=== PATIENT | female | born 1955 | race Caucasian/White ===

== ENCOUNTER 2024-03-21 20:24 | Inpatient (IN) ==
--- NOTE | 2024-03-21 21:23 | Emergency Department Note ---
Impression & Plan Sepsis, Renal colic, Hydronephrosis, UTI (urinary tract infection) ED Provider Note NAME: KRIS GARCIA AGE: 68 SEX: F : 1955 ARRIVES VIA: Walk-In INFORMANT: Patient ED PROVIDER(S): Hi Lee DO CHIEF COMPLAINT: abdominal pain HPI: Patient is a 68-year-old female who presents to the ER for abdominal pain associated with diarrhea. She has had hematuria for the past several months. She notes she is following with urology. Denies any headache or change in vision. No chest pain or shortness of breath. She admits to belly pain diffuse throughout her lower abdomen which started about 7 days ago associate with some diarrhea. She notes she has not urinated in the past 2 days and that is why she came in. She is not on dialysis. No other exacerbating or remitting factors. provides additional history was present at bedside and notes she has had no previous belly surgeries. ADDITIONAL HISTORY OBTAINED: Per HPI Chronic Medical/Social Conditions Affecting Care: Per HPI PAST MEDICAL HISTORY:See Below PAST SURGICAL HISTORY:See Below FAMILY HISTORY:See Below SOCIAL HISTORY:See Below HOME MEDICATIONS:See Below ALLERGIES:See Below VITALS:See Below PHYSICAL EXAMINATION: GENERAL: Sitting up in bed, alert, well appearing, well nourished, no distress, non-toxic EYE EXAM: normal conjunctiva. OROPHARYNX: mucous membranes are moist NECK: supple, no nuchal rigidity, no adenopathy, non-tender LUNGS: Clear to auscultation. Normal chest wall mechanics HEART: Tachycardic, S1 normal and S2 normal ABDOMEN: abdomen soft, diffusely tender, normo-active bowel sounds, no masses, no rebound or guarding. UPPER EXTREMITIES: upper extremities are grossly normal. LOWER EXTREMITIES: No pitting edema. NEURO EXAM: Normal sensorium, cranial nerves II-XII grossly intact, normal speech, no gross weakness of arms, no gross weakness of legs. MEDICAL DECISION MAKING: Patient is a 68-year-old female who presents ER for 4 abdominal pain associate with diarrhea and weakness. IV was established and blood work was obtained. Labs show a leukocytosis of 11.8 thousand. Anemia at 7.4 with no previous hemoglobins to compare to. BMP with mild hypokalemia 3.1. Creatinine was elevated at 1.8. External records were reviewed from [facility] 3 months ago which showed a creatinine at 1.03 on 12/11/2023 at 3:49 PM. LFTs and bilirubin were unremarkable. Lipase was normal. Pro-Pravin was elevated at 6.6. UA consistent with a UTI. Patient was given 2 L of IV fluids in combination with IV Rocephin. She is tachycardic with unknown source of infection. CT per my preliminary interpretation showed a stone in the left proximal ureter. I do feel this is infected and consequently contacted urology been to evaluate the patient at bedside. Spoke with the hospitalist Dr. Dubose for further evaluation management treatment. Please see their notes for further disposition. Consults/Care Managements Discussions: Per [facility] Triage Nursing notes reviewed. Limited review of prior medical records performed Vital Signs: reviewed and remarkable for tachy Differential diagnosis: Differential diagnoses includes but is not limited to gastritis, peptic ulcer disease, GERD, gallbladder disease, pancreatitis, small bowel obstruction, appendicitis, diverticulitis, hernia, urinary tract infection, torsion, perforation, trauma, infectious. ER treatment provided: See below Diagnostics interpreted by me include EKG and cardiac monitoring as listed below: -Cardiac Monitoring: An order was placed for continuous cardiac monitoring. The monitor shows a rate of 110 with sinus rhythm. -ECG: none -Laboratory studies:Interpreted by me as stated above in MDM and shown below. Imaging studies: Xrays: As interpreted by me: Portable AP upright 1 view of the chest shows no focal infiltrate CTs show: CT abdomen pelvis per my preliminary interpretation showed a proximal left ureteral stone Procedures:none Critical Care: I have personally spent 35 minutes of critical care time in the direct management of this patient. This includes bedside care, interpretation of diagnostic studies, and testing, discussion with consultants, patient, and family members, and other required patient management activities. This 35 minutes is in excess of all separately billable procedures. Past Med/Surg History Problem List (Updated 03/21/24 @ 23:35 by Hi Lee DO) UTI (urinary tract infection) (Acute) Hydronephrosis (Acute) Renal colic (Acute) Sepsis (Acute) Social History Smoking Status: Never smoker Preferred Language: Bulgarian Feels Safe at Home: Yes Allergies Allergies Allergy/AdvReac Type Severity Reaction Status Date / Time No Known Allergies Allergy Unverified 03/21/24 23:33 Home Meds Home Medications Medication Instructions Recorded Confirmed amlodipine 5 mg tablet 10 mg PO QAM 03/21/24 03/21/24 aripiprazole 20 mg tablet 20 mg PO HS 03/21/24 03/21/24 atenolol 25 mg tablet 25 mg PO BID 03/21/24 03/21/24 atorvastatin 80 mg tablet 80 mg PO QAM 03/21/24 03/21/24 cyclobenzaprine 5 mg tablet 5 mg PO HS PRN Muscle Spasm 03/21/24 03/21/24 ezetimibe 10 mg tablet 10 mg PO HS 03/21/24 03/21/24 fluticasone fur. 200 mcg-umeclid 1 ea inhalation QAM 03/21/24 03/21/24 62.5 mcg-vilant 25 mcg inhalat.powder (Trelegy Ellipta) furosemide 20 mg tablet 20 mg PO DAILY PRN swelling 03/21/24 03/21/24 furosemide 40 mg tablet 40 mg PO QAM 03/21/24 03/21/24 hydralazine 25 mg tablet 25 mg PO AMHS 03/21/24 03/21/24 hydrocodone 10 mg-acetaminophen 1 tab PO Q12 PRN Pain 03/21/24 03/21/24 325 mg tablet lamotrigine 25 mg tablet 50 mg PO QAM 03/21/24 03/21/24 lisinopril 20 mg tablet 20 mg PO BID 03/21/24 03/21/24 meloxicam 15 mg tablet 15 mg PO QAM 03/21/24 03/21/24 metformin 500 mg tablet,extended 1,000 mg PO BID 03/21/24 03/21/24 release 24 hr methenamine hippurate 1 gram tablet 1 g PO AMHS 03/21/24 03/21/24 ondansetron HCl 4 mg tablet 4 mg PO Q8 PRN Nausea 03/21/24 03/21/24 prazosin 2 mg capsule 2 mg PO HS 03/21/24 03/21/24 sertraline 100 mg tablet 100 mg PO BID 03/21/24 03/21/24 topiramate 50 mg tablet 50 mg PO AMHS 03/21/24 03/21/24 trazodone 150 mg tablet 300 mg PO HS 03/21/24 03/21/24 Results & Data (ED) Vital Signs Vital Signs - 24 hr 03/21/24 20:41 03/21/24 21:38 03/21/24 21:47 Temperature 36 C L Temperature Source Temporal Artery Scan Pulse Rate 118 H 119 H 110 H Pulse Rate [Apical] Respiratory Rate 16 20 Blood Pressure 119/74 Blood Pressure [Left Arm] Blood Pressure Mean 89 Blood Pressure Mean [Left Arm] Pulse Oximetry 95 95 Oxygen Delivery Method Room Air Room Air Oxygen Flow Rate Sepsis Recent Fever Within 48 Hours No Sepsis New/Unexplained Change in Mental Status N/A Sepsis Action Taken by Nursing No Action Required 03/21/24 22:47 Temperature Temperature Source Pulse Rate Pulse Rate [Apical] 116 H Respiratory Rate 20 Blood Pressure Blood Pressure [Left Arm] 126/97 Blood Pressure Mean Blood Pressure Mean [Left Arm] 106 Pulse Oximetry 98 Oxygen Delivery Method Nasal Cannula Oxymask Oxygen Flow Rate 2 Sepsis Recent Fever Within 48 Hours Sepsis New/Unexplained Change in Mental Status Sepsis Action Taken by Nursing Laboratory Data 03/21/24 21:27 03/21/24 21:27 Lab Results 03/21/24 03/21/24 03/21/24 Range/Units 21:27 21:33 21:45 WBC 11.89 H (4.8-10.8) K/ul RBC 2.87 L (4.20-5.40) M/uL Hgb 7.4 L (12.0-16.0) g/dl POC Hgb 7.1 L (12.0-16.0) g/dl Hct 24.3 L (37.0-47.0) % POC Hct 21 L (37-47) % MCV 84.7 (80.0-100.0) fL MCH 25.8 (25.0-34.0) pg MCHC 30.5 L (32.0-36.0) g/dL RDW Std Deviation 50.6 H (36.4-46.3) fL RDW Coeff of Nicolas 16.3 H (11.5-14.5) % Plt Count 424 H (130-400) K/uL MPV 9.6 (9.4-12.4) fL Immature Gran % (Auto) 0.5 % Neut % (Auto) 84.0 % Lymph % (Auto) 9.8 % Burnet % (Auto) 5.2 % Eos % (Auto) 0.3 % Baso % (Auto) 0.2 % Neut # (Auto) 10.00 H (1.40-6.50) K/uL Lymph # (Auto) 1.16 L (1.20-3.40) K/uL Burnet # (Auto) 0.62 H (0.11-0.59) K/uL Eos # (Auto) 0.03 (0.00-0.50) K/uL Baso # (Auto) 0.02 (0.00-0.20) K/uL Immature Gran # (Auto) 0.06 (0.01-0.20) K/uL Polychromasia 1+ Tear Drop Cells 1+ Ovalocytes 1+ POC Sodium 139 (135-144) mmol/L Sodium 138 (136-145) mmol/L POC Potassium 3.1 L (3.3-5.0) mmol/L Potassium 3.1 L (3.5-5.1) mmol/L POC Chloride 103 (101-112) mmol/L Chloride 103 (98-107) mmol/L Carbon Dioxide 24 (21-32) mmol/L POC Total CO2 22 L (24-31) mmol/L Anion Gap 11 (3-11) POC Anion Gap 17.0 (16-25) mmol/L POC BUN 43 H (7-18) mg/dl BUN 46 H (6-23) mg/dl Creatinine 1.78 H (0.6-1.2) mg/dl POC Creatinine 2.1 H (0.6-1.3) mg/dl Est Cr Clr Drug Dosing Not Reportable eGFR 30.91 BUN/Creatinine Ratio 25.8 H (10-20) Glucose 92 (70-99(Fasting)) mg/dl POC Glucose (other) 93 (70-99) mg/dl Calcium 8.6 (8.6-10.3) mg/dl POC Ioniz Calcium Clem 1.15 (1.12-1.32) mmol/l Total Bilirubin 0.3 (0.2-1.0) mg/dl AST 59 H (13-39) U/L ALT 37 (7-52) U/L Alkaline Phosphatase 72 (34-104) U/L Total Protein 6.1 (6.0-8.3) gm/dl Albumin 3.2 L (3.4-5.0) gm/dl Globulin 2.9 (2.5-4.0) gm/dl Albumin/Globulin Ratio 1.1 (0.9-2) Lipase 48 (11-82) U/L Procalcitonin 6.68 H (0-0.5) ng/ml Urine Color Dark Yellow Urine Appearance Cloudy A (Clear) Urine pH 5.5 (4.5-7.5) Ur Specific [place] 1.017 (1.000-1.030) Urine Protein 1+ H (Negative) Urine Glucose (UA) Negative (Negative) Urine Ketones Negative (Negative) Urine Blood 2+ H (Negative) Urine Nitrite Positive A (Negative) Urine Bilirubin Negative (Negative) Urine Urobilinogen Negative (Negative) Ur Leukocyte Esterase 3+ H (Negative) Urine WBC (Auto) >50 H (0-5) /hpf Urine RBC (Auto) 0-2 (0-2) /hpf U Hyaline Cast (Auto) 11-20 H (0-2) /lpf U Epithel Cells (Auto) 0-2 (0-2) /hpf Urine Bacteria (Auto) 3+ H (None Seen) Crossmatch 03/21/24 Range/Units 22:56 WBC (4.8-10.8) K/ul RBC (4.20-5.40) M/uL Hgb (12.0-16.0) g/dl POC Hgb (12.0-16.0) g/dl Hct (37.0-47.0) % POC Hct (37-47) % MCV (80.0-100.0) fL MCH (25.0-34.0) pg MCHC (32.0-36.0) g/dL RDW Std Deviation (36.4-46.3) fL RDW Coeff of Nicolas (11.5-14.5) % Plt Count (130-400) K/uL MPV (9.4-12.4) fL Immature Gran % (Auto) % Neut % (Auto) % Lymph % (Auto) % Burnet % (Auto) % Eos % (Auto) % Baso % (Auto) % Neut # (Auto) (1.40-6.50) K/uL Lymph # (Auto) (1.20-3.40) K/uL Burnet # (Auto) (0.11-0.59) K/uL Eos # (Auto) (0.00-0.50) K/uL Baso # (Auto) (0.00-0.20) K/uL Immature Gran # (Auto) (0.01-0.20) K/uL Polychromasia Tear Drop Cells Ovalocytes POC Sodium (135-144) mmol/L Sodium (136-145) mmol/L POC Potassium (3.3-5.0) mmol/L Potassium (3.5-5.1) mmol/L POC Chloride (101-112) mmol/L Chloride (98-107) mmol/L Carbon Dioxide (21-32) mmol/L POC Total CO2 (24-31) mmol/L Anion Gap (3-11) POC Anion Gap (16-25) mmol/L POC BUN (7-18) mg/dl BUN (6-23) mg/dl Creatinine (0.6-1.2) mg/dl POC Creatinine (0.6-1.3) mg/dl Est Cr Clr Drug Dosing eGFR BUN/Creatinine Ratio (10-20) Glucose (70-99(Fasting)) mg/dl POC Glucose (other) (70-99) mg/dl Calcium (8.6-10.3) mg/dl POC Ioniz Calcium Clem (1.12-1.32) mmol/l Total Bilirubin (0.2-1.0) mg/dl AST (13-39) U/L ALT (7-52) U/L Alkaline Phosphatase (34-104) U/L Total Protein (6.0-8.3) gm/dl Albumin (3.4-5.0) gm/dl Globulin (2.5-4.0) gm/dl Albumin/Globulin Ratio (0.9-2) Lipase (11-82) U/L Procalcitonin (0-0.5) ng/ml Urine Color Urine Appearance (Clear) Urine pH (4.5-7.5) Ur Specific [place] (1.000-1.030) Urine Protein (Negative) Urine Glucose (UA) (Negative) Urine Ketones (Negative) Urine Blood (Negative) Urine Nitrite (Negative) Urine Bilirubin (Negative) Urine Urobilinogen (Negative) Ur Leukocyte Esterase (Negative) Urine WBC (Auto) (0-5) /hpf Urine RBC (Auto) (0-2) /hpf U Hyaline Cast (Auto) (0-2) /lpf U Epithel Cells (Auto) (0-2) /hpf Urine Bacteria (Auto) (None Seen) Crossmatch See Detail Administered Medications Discontinued Medications Sodium Chloride (Nss) 1,000 mls @ 999 mls/hr IV .Q1H1M ONE Stop: 03/21/24 22:18 Last Infusion: 03/21/24 22:30 Dose: Infused Documented By: Admin: 03/21/24 21:29 Dose: 999 mls/hr Documented By: GABRIEL Ceftriaxone Sodium (Rocephin) 2,000 mg in 50 mls @ 100 mls/hr IV NOW STA Stop: 03/21/24 23:15 Last Admin: 03/21/24 23:06 Dose: 100 mls/hr Documented By: GABRIEL Imaging Data Radiologist's Impression: Abdomen/Pelvis CT 03/21/24 21:40 Exam(s): CT ABDOMEN + PELVIS Without Contrast EXAM: CT Abdomen and Pelvis Without Intravenous Contrast CLINICAL HISTORY: abd pain. TECHNIQUE: Axial computed tomography images of the abdomen and pelvis without intravenous contrast. CTDI is 27.94 mGy and DLP is 1314.45 mGy-cm. Automated exposure control was utilized for the study. A dose lowering technique was utilized adhering to the principles of ALARA. COMPARISON: No relevant prior studies available. FINDINGS: Lung bases: Mild left basilar atelectasis. Mild cardiomegaly. ABDOMEN: Liver: Large 24 cm length. Gallbladder and bile ducts: Unremarkable. No calcified stones. No ductal dilation. Pancreas: Unremarkable. No ductal dilation. Spleen: Unremarkable. No splenomegaly. Adrenals: Unremarkable. No mass. Kidneys and ureters: Bilateral renal scarring. Multiple bilateral nonobstructing renal calculi, left greater than right. No right hydronephrosis or hydroureter. Mild left hydronephrosis with obstructing calculus at the left ureteral pelvic junction 11 x 8 x 16 mm. Stomach and bowel: Fat-containing periumbilical hernia. No obstruction or ileus. No evidence for diverticulitis. PELVIS: Appendix: Appendix not identified. No secondary evidence for appendicitis. Bladder: Partially contracted. No stones. Reproductive: Uterus and ovaries are grossly unremarkable. ABDOMEN and PELVIS: Intraperitoneal space: No free air. No free fluid. Bones/joints: No acute fracture. Degenerative changes of the spine. Soft tissues: Unremarkable. Vasculature: Atherosclerotic vascular calcifications. No abdominal aortic aneurysm. Lymph nodes: Unremarkable. No enlarged lymph nodes. IMPRESSION: Left hydronephrosis with obstructing calculus at ureteropelvic junction. Multiple additional bilateral renal calculi. Renal scarring. Collapsed urinary bladder. Hepatomegaly. Senescent changes. Electronically signed by: Jomar Brothers M.D. 03/21/24 23:21 PM Chest X-Ray 03/21/24 21:41 Exam(s): XR CXR 1 VIEW EXAM: XR Chest, 1 View CLINICAL HISTORY: fevers. TECHNIQUE: Frontal view of the chest. COMPARISON: No relevant prior studies available. FINDINGS: Moderate cardiomegaly. Atherosclerotic calcifications of the aortic arch. Mild pulmonary vascular congestion. No focal of which appeared no pleural effusion or pneumothorax. Bones are unremarkable. IMPRESSION: Cardiomegaly. CHF. Electronically signed by: Jomar Brothers M.D. 03/21/24 23:23 PM Discharge Plan Visit Data Chief Complaint: Unable to Void Stated Complaint: BLOOD IN URINE, ABD PAIN, ED Provider: Hi Lee Discharge Problem: Sepsis, Renal colic, Hydronephrosis, UTI (urinary tract infection) Forms Stand Alone Forms: [facility] Prescriptions Prescriptions: No Action furosemide 40 mg tablet 40 mg PO QAM sertraline 100 mg tablet 100 mg PO BID lamotrigine 25 mg tablet 50 mg PO QAM trazodone 150 mg tablet 300 mg PO HS meloxicam 15 mg tablet 15 mg PO QAM amlodipine 5 mg tablet 10 mg PO QAM Rx Instructions: 2 tablet dose prazosin 2 mg capsule 2 mg PO HS hydrocodone-acetaminophen 10-325 mg tablet 1 tab PO Q12 PRN (Reason: Pain) methenamine hippurate 1 gram tablet 1 g PO AMHS aripiprazole 20 mg tablet 20 mg PO HS topiramate 50 mg tablet 50 mg PO AMHS atorvastatin 80 mg tablet 80 mg PO QAM ondansetron HCl 4 mg tablet 4 mg PO Q8 PRN (Reason: Nausea) hydralazine 25 mg tablet 25 mg PO AMHS metformin 500 mg tablet extended release 24 hr 1,000 mg PO BID cyclobenzaprine 5 mg tablet 5 mg PO HS PRN (Reason: Muscle Spasm) lisinopril 20 mg tablet 20 mg PO BID atenolol 25 mg tablet 25 mg PO BID ezetimibe 10 mg tablet 10 mg PO HS furosemide 20 mg tablet 20 mg PO DAILY PRN (Reason: swelling) Trelegy Ellipta 200-62.5-25 mcg blister with device 1 ea INHALATION QAM Referrals Referrals: Az Cavazos [Staff Physician] - Discharge Problem: Sepsis Qualifiers: Sepsis type: sepsis due to unspecified organism Sepsis acute organ dysfunction status: unspecified Qualified Code(s): A41.9 - Sepsis, unspecified organism Hydronephrosis Qualifiers: Hydronephrosis type: unspecified Qualified Code(s): N13.30 - Unspecified hydronephrosis UTI (urinary tract infection) Qualifiers: Urinary tract infection type: acute cystitis Hematuria presence: with hematuria Qualified Code(s): N30.01 - Acute cystitis with hematuria
[2024-03-21] MEDS: SODIUM CHLORIDE 0.9% 1,000 ML IV ONE ×2 (21:29→23:59)
[2024-03-21 21:45] LABS: iSTAT Creatinine 2.1 mg/dl (0.6-1.3); iSTAT Hemoglobin 7.1 g/dl (12.0-16.0); iSTAT Ionized Calcium 1.15 mmol/l (1.12-1.32); iSTAT Potassium 3.1 mmol/L (3.3-5.0)
[2024-03-21 22:00] LABS: Basophils # (auto) 0.02 K/uL (0.00-0.20); Basophils % (auto) 0.2 %; Eosinophils # (auto) 0.03 K/uL (0.00-0.50); Eosinophils % (auto) 0.3 %; Hematocrit (blood only) 24.3 % (37.0-47.0); Hemoglobin 7.4 g/dl (12.0-16.0); Immature Granulocytes # (auto) 0.06 K/uL (0.01-0.20); Immature Granulocytes % (auto) 0.5 %; Lymphocytes # (auto) 1.16 K/uL (1.20-3.40); Lymphocytes % (auto) 9.8 %; Mean Corpuscular Hemoglobin 25.8 pg (25.0-34.0); Mean Corpuscular Hgb Conc 30.5 g/dL (32.0-36.0); Mean Corpuscular Volume 84.7 fL (80.0-100.0); Mean Platelet Volume 9.6 fL (9.4-12.4); Monocytes # (auto) 0.62 K/uL (0.11-0.59); Monocytes % (auto) 5.2 %; Platelet Count 424 K/uL (130-400); RDW Coefficient of Variation 16.3 % (11.5-14.5); RDW Standard Deviation 50.6 fL (36.4-46.3); Red Blood Count 2.87 M/uL (4.20-5.40); White Blood Count 11.89 K/ul (4.8-10.8)
[2024-03-21 22:03] LABS: Alanine Aminotransferase 37 U/L (7-52); Albumin Globulin Ratio 1.1 (0.9-2); Albumin Level 3.2 gm/dl (3.4-5.0); Alkaline Phosphatase 72 U/L (34-104); Anion Gap 11 (3-11); Aspartate Aminotransferase 59 U/L (13-39); BUN Creatinine Ratio 25.8 (10-20); Bilirubin,Total 0.3 mg/dl (0.2-1.0); Blood Urea Nitrogen 46 mg/dl (6-23); Calcium 8.6 mg/dl (8.6-10.3); Carbon Dioxide 24 mmol/L (21-32); Chloride 103 mmol/L (98-107); Globulin 2.9 gm/dl (2.5-4.0); Glucose 92 mg/dl (70-99(Fasting)); Lipase 48 U/L (11-82); Potassium 3.1 mmol/L (3.5-5.1); Sodium 138 mmol/L (136-145); Total Protein 6.1 gm/dl (6.0-8.3)
[2024-03-21] MEDS ORDERED: SODIUM CHLORIDE 0.9% 50 ML IV PRN (22:12)
[2024-03-21] MEDS ORDERED: SODIUM CHLORIDE 0.9% 100 ML IV PRN (22:12)
[2024-03-21 22:35] LABS: Appearance Urine Cloudy (Clear); Bacteria Urine Automated 3+ (None Seen); Bilirubin Urine Negative (Negative); Blood Urine 2+ (Negative); Color Urine Dark Yellow; Epithelial Cell Urine Auto 0-2 /hpf (0-2); Glucose Urine UA Negative (Negative); Ketones Urine Negative (Negative); Leukocyte Esterase Urine 3+ (Negative); Nitrite Urine Positive (Negative); Protein Urine 1+ (Negative); RBC Urine Automated 0-2 /hpf (0-2); Specific Gravity Urine 1.017 (1.000-1.030); Urobilinogen Urine Negative (Negative); WBC Urine Automated >50 /hpf (0-5); pH Urine 5.5 (4.5-7.5)
[2024-03-21 22:48] LABS: Ovalocytes 1+; Polychromasia 1+; Tear Drop Cells 1+
[2024-03-21] MEDS: cefTRIAXone SODIUM 2,000 MG/50 ML BAG IV STA (23:06)
--- NOTE | 2024-03-21 23:22 | CT Scan Report ---
Exam(s): CT ABDOMEN + PELVIS Without Contrast EXAM: CT Abdomen and Pelvis Without Intravenous Contrast CLINICAL HISTORY: abd pain. TECHNIQUE: Axial computed tomography images of the abdomen and pelvis without intravenous contrast. CTDI is 27.94 mGy and DLP is 1314.45 mGy-cm. Automated exposure control was utilized for the study. A dose lowering technique was utilized adhering to the principles of ALARA. COMPARISON: No relevant prior studies available. FINDINGS: Lung bases: Mild left basilar atelectasis. Mild cardiomegaly. ABDOMEN: Liver: Large 24 cm length. Gallbladder and bile ducts: Unremarkable. No calcified stones. No ductal dilation. Pancreas: Unremarkable. No ductal dilation. Spleen: Unremarkable. No splenomegaly. Adrenals: Unremarkable. No mass. Kidneys and ureters: Bilateral renal scarring. Multiple bilateral nonobstructing renal calculi, left greater than right. No right hydronephrosis or hydroureter. Mild left hydronephrosis with obstructing calculus at the left ureteral pelvic junction 11 x 8 x 16 mm. Stomach and bowel: Fat-containing periumbilical hernia. No obstruction or ileus. No evidence for diverticulitis. PELVIS: Appendix: Appendix not identified. No secondary evidence for appendicitis. Bladder: Partially contracted. No stones. Reproductive: Uterus and ovaries are grossly unremarkable. ABDOMEN and PELVIS: Intraperitoneal space: No free air. No free fluid. Bones/joints: No acute fracture. Degenerative changes of the spine. Soft tissues: Unremarkable. Vasculature: Atherosclerotic vascular calcifications. No abdominal aortic aneurysm. Lymph nodes: Unremarkable. No enlarged lymph nodes. IMPRESSION: Left hydronephrosis with obstructing calculus at ureteropelvic junction. Multiple additional bilateral renal calculi. Renal scarring. Collapsed urinary bladder. Hepatomegaly. Senescent changes. Electronically signed by: Jomar Brothers M.D. 03/21/24 23:21 PM
--- NOTE | 2024-03-21 23:24 | XRay Report ---
Exam(s): XR CXR 1 VIEW EXAM: XR Chest, 1 View CLINICAL HISTORY: fevers. TECHNIQUE: Frontal view of the chest. COMPARISON: No relevant prior studies available. FINDINGS: Moderate cardiomegaly. Atherosclerotic calcifications of the aortic arch. Mild pulmonary vascular congestion. No focal of which appeared no pleural effusion or pneumothorax. Bones are unremarkable. IMPRESSION: Cardiomegaly. CHF. Electronically signed by: Jomar Brothers M.D. 03/21/24 23:23 PM
--- NOTE | 2024-03-21 23:46 | Urology Consultation ---
<Statement entered by Sunny Goldsmith MD - 03/22/24 06:12> I have agree with the above documentation. This is a 68 year-old female with left UPJ stone and concern for UTI. She will likely require cystoscopy and left ureteral stent placement, however she is not currently appropriately NPO. Since she is clinically stable, would recommend starting with IV fluids and antib iotics. Please keep NPO at midnight in anticipation of left ureteral stent placement on 03/22/24. Date of Consultation March 21, 2024 Assessment & Plan (1) Renal colic: I discussed with the treating emergency room physician the patient is being admitted on the hospitalist service. From a urologic perspective we recommend the following: Implement n.p.o. status The patient should be hydrated IV fluids supplementing electrolytes as needed Antibiotics in form of Rocephin have been initiated and this should continue. Appropriate cultures have been sent and these can be followed with antibiotics be tailored based on pending culture data At the present time the patient is nontoxic-appearing. She does have a slight leukocytosis and tachycardia but she is normotensive and afebrile she is normotensive and afebrile. This, given the fact that the patient had solid oral intake at approximately 7:00 PM I feel we can remain conservative measures as noted above but she will be reevaluated the morning of 03/22/2024 as I feel she will likely need a cystoscopy and a semielective basis. Please contact the urology service if patient decompensates; if this should happen consideration be given to performing procedure intervention sooner (2) Hydronephrosis: (3) UTI (urinary tract infection): History of Present Illness Reason for Consultation: Nephrolithiasis History of Present Illness This is a 68-year-old female who presented to the emergency department secondary to the inability to void adequately. Patient notes that she has a history of kidney stones and was previously receiving her urologic care in [place], [place]. She says she has had kidney stones in the past and required procedural intervention most recently she believes 2 to 3 years ago. Patient says that she has been having difficulty urinating for approximately 1 week. In addition she says that she has felt feverish (although she did not take her temperature). She has had shakes, chills, as well as sweats. She does report some bilateral lower back pain. She does report some of her low back pain radiates to the left side of her abdomen. In addition, the patient notes that she has had some blood in her urine and she reports that this has been problematic for several months. As noted above she was receiving prior urologic care in [place] and she says that she was addressing this with her urologist and she believes she was supposed to have a cystoscopy in the near future but now wishes to transfer her care to [facility] physician group urology. The patient does note that her most recent oral intake was at approximately 7:00 PM this evening where she ate some cheese sticks. Since arrival to the hospital this patient has had labs and imaging which I independently reviewed. She did have a chest x-ray that showed no pleural effusions or evidence of pneumonia. CT scan of the abdomen pelvis showed the patient had left-sided hydronephrosis with an obstructing kidney stone at the ureteropelvic junction measuring 11 x 8 x 16 mm. There is no right-sided hydronephrosis. Labs included CBC her white blood cell count was a little elevated 11.8. Hemoglobin and hematocrit are 7.4 and 24.3. Platelet count is 424,000. Chemistry profile showed sodium is 138 with a potassium of 3.1. BUN and creatinine were 46 and 1.7 (previous labs were retrieved and her baseline creatinine runs approximately 1.0this was on labs done at an outside facility approximately 3 months ago). Urinalysis showed concerns for urinary tract infection as it was positive for nitrites, showed 3+ leukocyte Estrace, had pyuria with greater than 50 white blood cells per high-power field, and had 3+ bacteria. At the time my interview the patient was resting comfortably in bed and she was in no distress. Allergies Allergy/AdvReac Type Severity Reaction Status Date / Time No Known Allergies Allergy Unverified 03/21/24 23:33 Home Medications Medication Instructions Recorded Confirmed Type amlodipine 5 mg tablet 10 mg PO QAM 03/21/24 03/21/24 History aripiprazole 20 mg tablet 20 mg PO HS 03/21/24 03/21/24 History atenolol 25 mg tablet 25 mg PO BID 03/21/24 03/21/24 History atorvastatin 80 mg tablet 80 mg PO QAM 03/21/24 03/21/24 History cyclobenzaprine 5 mg tablet 5 mg PO HS PRN Muscle Spasm 03/21/24 03/21/24 History ezetimibe 10 mg tablet 10 mg PO HS 03/21/24 03/21/24 History fluticasone fur. 200 mcg-umeclid 1 ea inhalation QAM 03/21/24 03/21/24 History 62.5 mcg-vilant 25 mcg inhalat.powder (Trelegy Ellipta) furosemide 20 mg tablet 20 mg PO DAILY PRN swelling 03/21/24 03/21/24 History furosemide 40 mg tablet 40 mg PO QAM 03/21/24 03/21/24 History hydralazine 25 mg tablet 25 mg PO AMHS 03/21/24 03/21/24 History hydrocodone 10 mg-acetaminophen 1 tab PO Q12 PRN Pain 03/21/24 03/21/24 History 325 mg tablet lamotrigine 25 mg tablet 50 mg PO QAM 03/21/24 03/21/24 History lisinopril 20 mg tablet 20 mg PO BID 03/21/24 03/21/24 History meloxicam 15 mg tablet 15 mg PO QAM 03/21/24 03/21/24 History metformin 500 mg tablet,extended 1,000 mg PO BID 03/21/24 03/21/24 History release 24 hr methenamine hippurate 1 gram tablet 1 g PO AMHS 03/21/24 03/21/24 History ondansetron HCl 4 mg tablet 4 mg PO Q8 PRN Nausea 03/21/24 03/21/24 History prazosin 2 mg capsule 2 mg PO HS 03/21/24 03/21/24 History sertraline 100 mg tablet 100 mg PO BID 03/21/24 03/21/24 History topiramate 50 mg tablet 50 mg PO AMHS 03/21/24 03/21/24 History trazodone 150 mg tablet 300 mg PO HS 03/21/24 03/21/24 History Patient History Social History Smoking Status: Never smoker Preferred Language: Polish Feels Safe at Home: Yes Review of Systems Review of Systems: All systems reviewed & are unremarkable except as noted in HPI & below Physical Exam Constitutional: WD/WN, vitals as above Eyes: no conjunctival abnormality ENMT: Ears: no hearing impairment and no external ear abnormality Mouth: + oropharynx abnormality Neck: trachea midline Respiratory: normal respiratory effort; no respiratory distress and no labored breathing Cardiovascular: Rate/Rhythm: regular rate and regular rhythm Gastrointestinal (Abdomen): abdomen is soft and nondistended, it is nonrigid. There is no rebound tenderness or guarding. Patient did have some pain with palpation in the left hypogastric region. Musculoskeletal: No calf tenderness Skin: no rashes Neurologic: moves all extremities Genitourinary: Slight, bilateral CVA tenderness noted with percussion Results & Data Vital Signs (Past 12 Hours) Vital Signs Temp Pulse Pulse Resp BP BP Pulse Ox 03/21/24 22:47 116 H 20 126/97 98 03/21/24 21:47 110 H 20 95 03/21/24 21:38 119 H 03/21/24 20:41 36 C L 118 H 16 119/74 95 O2 Del Method O2 Flow Rate 03/21/24 22:47 Nasal Cannula, Oxymask 2 03/21/24 21:47 Room Air 03/21/24 21:38 03/21/24 20:41 Room Air PG Care Time/CCT Total # of Minutes Spent Total Time Spent with Patient: Total time spent is greater than 50% in coordination of care (as documented) at patient's floor/unit and/or counseling patient: Coding Level of Care Code 89028 INT INP/OBS CARE 375MIN Diagnoses Renal colic N23 Hydronephrosis N13.30 Hydronephrosis type: unspecified UTI (urinary tract infection) N30.01 Hematuria presence: with hematuria Urinary tract infection type: acute cystitis (2) Hydronephrosis Hydronephrosis type: unspecified Qualified Code(s): N13.30 - Unspecified hydronephrosis (3) UTI (urinary tract infection) Hematuria presence: with hematuria Urinary tract infection type: acute cystitis Qualified Code(s): N30.01 - Acute cystitis with hematuria
[2024-03-21] MEDS: MoRPHine SULFATE 4 MG/ML 1 ML CARP\\VIAL IV STA (23:52)
[2024-03-21] MEDS: ONDANSETRON INJ 2 MG/ML 2 ML VIAL IV STA (23:52)
--- NOTE | 2024-03-22 00:18 | History & Physical Report ---
Date of Service March 22, 2024 Assessment & Plan (1) Hydronephrosis of left kidney: (2) UTI (urinary tract infection): (3) Obstruction of left ureteropelvic junction (UPJ) due to stone: (4) Sepsis: (5) Acute kidney injury: (6) Hypokalemia: (7) Anemia: (8) Hypertension: (9) CHF (congestive heart failure): (10) Diabetes mellitus: (11) Anxiety and depression: Plan Sepsis due to urinary tract infection/left UPJ obstructing stone/left hydronephrosis- Follow urine culture and sensitivity Empiric ceftriaxone 2 g IV daily Acetaminophen 650 mg by mouth every 4 hours as needed for mild pain or fever Morphine sulfate 2 mg IV every 3 hours as needed for moderate pain Morphine sulfate 4 mg IV every 3 hours as needed for severe pain NSS at 80 mL/h x 1 L Zofran 4 mg IV every 6 hours as needed Consult urology Acute kidney injury- Creatinine 1.78, with base 1.03 Status post 2 L normal saline bolus from the ED NSS at 80 mL/h x 1 additional liter Recheck laboratories in the a.m. Diabetes mellitus- Hold metformin Placed on Accu-Cheks with NovoLog SSI Hypertension- Blood pressure is relatively low in the ED at this time Will hold amlodipine, furosemide, hydralazine, lisinopril and prazosin. Reinstitute as pressure warrants Continue atenolol 25 mg p.o. twice daily Hypokalemia- Potassium 3.1 on admission Give Klor-Con 40 mill equivalents p.o. and recheck laboratories in a.m. History of Present Illness Chief Complaint: The patient presents to the emergency department with complaint of blood in urine for the past 5 months. She reports that she has developed lower abdominal left flank pain over the past week, and also notes some diarrhea now as well. She reports that she has not urinated for the past 3 to 4 days, but has not been taking in much fluids. Primary Care Provider: Yamileth Chen The patient is a 68-year-old female with a past medical history including hypertension, hyperlipidemia, muscle spasm, COPD, CHF, peripheral neuropathy, diabetes mellitus, anxiety with depression. She presents to the emergency department symptoms as noted above. Workup in the emergency department included CT scan of the abdomen pelvis which showed left hydronephrosis secondary to a 11 x 8 x 16 mm left UPJ stone. Patient was seen by urology while in the emergency department, and plan is to patient to have procedure in the a.m. tomorrow. Allergies Allergy/AdvReac Type Severity Reaction Status Date / Time No Known Allergies Allergy Unverified 03/21/24 23:33 Home Medications Medication Instructions Recorded Confirmed Type amlodipine 5 mg tablet 10 mg PO QAM 03/21/24 03/21/24 History aripiprazole 20 mg tablet 20 mg PO HS 03/21/24 03/21/24 History atenolol 25 mg tablet 25 mg PO BID 03/21/24 03/21/24 History atorvastatin 80 mg tablet 80 mg PO QAM 03/21/24 03/21/24 History cyclobenzaprine 5 mg tablet 5 mg PO HS PRN Muscle Spasm 03/21/24 03/21/24 History ezetimibe 10 mg tablet 10 mg PO HS 03/21/24 03/21/24 History fluticasone fur. 200 mcg-umeclid 1 ea inhalation QAM 03/21/24 03/21/24 History 62.5 mcg-vilant 25 mcg inhalat.powder (Trelegy Ellipta) furosemide 20 mg tablet 20 mg PO DAILY PRN swelling 03/21/24 03/21/24 History furosemide 40 mg tablet 40 mg PO QAM 03/21/24 03/21/24 History hydralazine 25 mg tablet 25 mg PO AMHS 03/21/24 03/21/24 History hydrocodone 10 mg-acetaminophen 1 tab PO Q12 PRN Pain 03/21/24 03/21/24 History 325 mg tablet lamotrigine 25 mg tablet 50 mg PO QAM 03/21/24 03/21/24 History lisinopril 20 mg tablet 20 mg PO BID 03/21/24 03/21/24 History meloxicam 15 mg tablet 15 mg PO QAM 03/21/24 03/21/24 History metformin 500 mg tablet,extended 1,000 mg PO BID 03/21/24 03/21/24 History release 24 hr methenamine hippurate 1 gram tablet 1 g PO AMHS 03/21/24 03/21/24 History ondansetron HCl 4 mg tablet 4 mg PO Q8 PRN Nausea 03/21/24 03/21/24 History prazosin 2 mg capsule 2 mg PO HS 03/21/24 03/21/24 History sertraline 100 mg tablet 100 mg PO BID 03/21/24 03/21/24 History topiramate 50 mg tablet 50 mg PO AMHS 03/21/24 03/21/24 History trazodone 150 mg tablet 300 mg PO HS 03/21/24 03/21/24 History Past Med/Surg History Problem List (Updated 03/22/24 @ 02:52 by Raheel Mckeon MD) Diabetes mellitus Anemia Hypokalemia Acute kidney injury Obstruction of left ureteropelvic junction (UPJ) due to stone Hydronephrosis of left kidney UTI (urinary tract infection) (Acute) Hydronephrosis (Acute) Renal colic (Acute) Sepsis (Acute) Medical History (Updated 03/22/24 @ 02:52 by Raheel Mckeon MD) Anxiety and depression CHF (congestive heart failure) Hypertension Social History Smoking Status: Former smoker Tobacco Type: Cigarettes Cigarettes Per Day: quit 17 years ago; Second Hand Exposure: No; Do You Dip or Chew Tobacco: No; Hx Alcohol Use: No Hx Substance Use: No Preferred Language: Frisian Communication Ability: Effective Bat Carrier Required: No Beliefs That Will Affect Care: None Current Living Situation: Alone Current Living Situation Comment: lives at home either alone or with () Feels Safe at Home: Yes Assistive Devices: Cane Review of Systems Review of Systems: The patient denies chest pain, palpitations, shortness of breath, dyspnea on exertion, cough, lower extremity swelling, sore throat, fevers, chills, sweats, vomiting, blood in stool, lightheadedness, dizziness, headache, memory loss, loss of consciousness, rash, imbalance, focal weakness, numbness or tingling in arms or legs, generalized arthralgias or myalgias, neck pain, or night sweats. The review of systems is otherwise negative other than for that already noted above, and at least 10 systems have been reviewed. Physical Exam Physical Exam: The patient is awake, alert and oriented 3, well developed and well nourished, normocephalic and atraumatic, lying in bed and in no acute distress. HEENT--PERRL, EOMI, mucous membranes and oropharynx mildly dry. Neck--supple. No JVD. No bruits. Thyroid normal, trachea midline, no adenopathy. Heart--normal S1 and S2. No murmurs, rubs or gallops. Lungs--clear bilaterally, no respiratory distress, no accessory muscle use. Abdomen--normal bowel sounds and soft. Nontender. Nondistended, no hernias or masses, no organomegaly. Extremities--No edema. Dermatologic--skin is dry and pale Neurologic--cranial nerves II through XII grossly intact. Rheumatologic--normal range of motion. Psychiatric--normal affect. Results & Data Results & Data Vital Signs (Past 12 Hours) Vital Signs Temp Pulse Pulse Resp BP BP Pulse Ox 03/21/24 22:47 116 H 20 126/97 98 03/21/24 21:47 110 H 20 95 03/21/24 21:38 119 H 03/21/24 20:41 36 C L 118 H 16 119/74 95 O2 Del Method O2 Flow Rate 03/21/24 22:47 Nasal Cannula, Oxymask 2 03/21/24 21:47 Room Air 03/21/24 21:38 03/21/24 20:41 Room Air Laboratory Results Laboratory Results WBC 11.89 K/ul (4.8-10.8) H 03/21/24 21: RBC 2.87 M/uL (4.20-5.40) L 03/21/24 21: Hgb 7.4 g/dl (12.0-16.0) L 03/21/24: POC Hgb 7.1 g/dl (12.0-16.0) L 03/21/24 21:33 Hct 24.3 % (37.0-47.0) L 03/21/24 21: POC Hct 21 % (37-47) L 03/21/24 21: MCV 84.7 fL (80.0-100.0) 03/21/24: MCH 25.8 pg (25.0-34.0) 03/21/24 21: MCHC 30.5 g/dL (32.0-36.0) L 03/21/24: RDW Std Deviation 50.6 fL (36.4-46.3) H 03/21/24 21: RDW Coeff of Nicolas 16.3 % (11.5-14.5) H 03/21/24: Plt Count 424 K/uL (130-400) H 03/21/24: MPV 9.6 fL (9.4-12.4) 03/21/24: Immature Gran % (Auto) 0.5 % 03/21/24: Neut % (Auto) 84.0 % 03/21/24: Lymph % (Auto) 9.8 % 03/21/24: Hockley % (Auto) 5.2 % 03/21/24: Eos % (Auto) 0.3 % 03/21/24: Baso % (Auto) 0.2 % 03/21/24: Neut # (Auto) 10.00 K/uL (1.40-6.50) H 03/21/24: Lymph # (Auto) 1.16 K/uL (1.20-3.40) L 03/21/24: [place]ockley # (Auto) 0.62 K/uL (0.11-0.59) H 03/21/24: Eos # (Auto) 0.03 K/uL (0.00-0.50) 03/21/24: Baso # (Auto) 0.02 K/uL (0.00-0.20) 03/21/24: Immature Gran # (Auto) 0.06 K/uL (0.01-0.20) 03/21/24: Polychromasia 1+ 03/21/24 21: Tear Drop Cells 1+ 03/21/24 21: Ovalocytes 1+ 03/21/24 21: POC Sodium 139 mmol/L (135-144) 03/21/24 21: Sodium 138 mmol/L (136-145) 03/21/24: POC Potassium 3.1 mmol/L (3.3-5.0) L 03/21/24 21: Potassium 3.1 mmol/L (3.5-5.1) L 03/21/24: POC Chloride 103 mmol/L (101-112) 03/21/24 21:33 Chloride 103 mmol/L (98-107) 03/21/24 21: Carbon Dioxide 24 mmol/L (21-32) 03/21/24 21: POC Total CO2 22 mmol/L (24-31) L 03/21/24 21:33 Anion Gap 11 (3-11) 03/21/24 21: POC Anion Gap 17.0 mmol/L (16-25) 03/21/24 21:33 POC BUN 43 mg/dl (7-18) H 03/21/24 21:33 BUN 46 mg/dl (6-23) H 03/21/24 21: Creatinine 1.78 mg/dl (0.6-1.2) H 03/21/24 21: POC Creatinine 2.1 mg/dl (0.6-1.3) H 03/21/24 21: Est Cr Clr Drug Dosing Not Reportable 03/21/24 21: eGFR 30.91 03/21/24 21: BUN/Creatinine Ratio 25.8 (10-20) H 03/21/24 21: Glucose 92 mg/dl (70-99(Fasting)) 03/21/24 21: POC Glucose (other) 93 mg/dl (70-99) 03/21/24 21: Calcium 8.6 mg/dl (8.6-10.3) 03/21/24 21: POC Ioniz Calcium Clem 1.15 mmol/l (1.12-1.32) 03/21/24 21: Total Bilirubin 0.3 mg/dl (0.2-1.0) 03/21/24 21: AST 59 U/L (13-39) H 03/21/24 21: ALT 37 U/L (7-52) 03/21/24 21: Alkaline Phosphatase 72 U/L (34-104) 03/21/24: Total Protein 6.1 gm/dl (6.0-8.3) 03/21/24: Albumin 3.2 gm/dl (3.4-5.0) L 03/21/24: Globulin 2.9 gm/dl (2.5-4.0) 03/21/24 21: Albumin/Globulin Ratio 1.1 (0.9-2) 03/21/24 21:27 Lipase 48 U/L (11-82) 03/21/24 21:27 Procalcitonin 6.68 ng/ml (0-0.5) H 03/21/24 21:27 Urine Color Dark Yellow 03/21/24 21:45 Urine Appearance Cloudy (Clear) A 03/21/24 21:45 Urine pH 5.5 (4.5-7.5) 03/21/24 21:45 Ur Specific Mustang 1.017 (1.000-1.030) 03/21/24 21:45 Urine Protein 1+ (Negative) H 03/21/24 21:45 Urine Glucose (UA) Negative (Negative) 03/21/24 21:45 Urine Ketones Negative (Negative) 03/21/24 21:45 Urine Blood 2+ (Negative) H 03/21/24 21:45 Urine Nitrite Positive (Negative) A 03/21/24 21:45 Urine Bilirubin Negative (Negative) 03/21/24 21:45 Urine Urobilinogen Negative (Negative) 03/21/24 21:45 Ur Leukocyte Esterase 3+ (Negative) H 03/21/24 21:45 Urine WBC (Auto) >50 /hpf (0-5) H 03/21/24 21:45 Urine RBC (Auto) 0-2 /hpf (0-2) 03/21/24 21:45 U Hyaline Cast (Auto) 11-20 /lpf (0-2) H 03/21/24 21:45 U Epithel Cells (Auto) 0-2 /hpf (0-2) 03/21/24 21:45 Urine Bacteria (Auto) 3+ (None Seen) H 03/21/24 21:45 Blood Type O Positive 03/21/24 22:56 Blood Type Recheck O Positive 03/22/24 01:25 Antibody Screen NEGATIVE 03/21/24 22:56 Crossmatch See Detail 03/21/24 22:56 Impressions Abdomen/Pelvis CT 03/21/24 21:40 Exam(s): CT ABDOMEN + PELVIS Without Contrast EXAM: CT Abdomen and Pelvis Without Intravenous Contrast CLINICAL HISTORY: abd pain. TECHNIQUE: Axial computed tomography images of the abdomen and pelvis without intravenous contrast. CTDI is 27.94 mGy and DLP is 1314.45 mGy-cm. Automated exposure control was utilized for the study. A dose lowering technique was utilized adhering to the principles of ALARA. COMPARISON: No relevant prior studies available. FINDINGS: Lung bases: Mild left basilar atelectasis. Mild cardiomegaly. ABDOMEN: Liver: Large 24 cm length. Gallbladder and bile ducts: Unremarkable. No calcified stones. No ductal dilation. Pancreas: Unremarkable. No ductal dilation. Spleen: Unremarkable. No splenomegaly. Adrenals: Unremarkable. No mass. Kidneys and ureters: Bilateral renal scarring. Multiple bilateral nonobstructing renal calculi, left greater than right. No right hydronephrosis or hydroureter. Mild left hydronephrosis with obstructing calculus at the left ureteral pelvic junction 11 x 8 x 16 mm. Stomach and bowel: Fat-containing periumbilical hernia. No obstruction or ileus. No evidence for diverticulitis. PELVIS: Appendix: Appendix not identified. No secondary evidence for appendicitis. Bladder: Partially contracted. No stones. Reproductive: Uterus and ovaries are grossly unremarkable. ABDOMEN and PELVIS: Intraperitoneal space: No free air. No free fluid. Bones/joints: No acute fracture. Degenerative changes of the spine. Soft tissues: Unremarkable. Vasculature: Atherosclerotic vascular calcifications. No abdominal aortic aneurysm. Lymph nodes: Unremarkable. No enlarged lymph nodes. IMPRESSION: Left hydronephrosis with obstructing calculus at ureteropelvic junction. Multiple additional bilateral renal calculi. Renal scarring. Collapsed urinary bladder. Hepatomegaly. Senescent changes. Electronically signed by: Jomar Brothers M.D. 03/21/24 23:21 PM Chest X-Ray 03/21/24 21:41 Exam(s): XR CXR 1 VIEW EXAM: XR Chest, 1 View CLINICAL HISTORY: fevers. TECHNIQUE: Frontal view of the chest. COMPARISON: No relevant prior studies available. FINDINGS: Moderate cardiomegaly. Atherosclerotic calcifications of the aortic arch. Mild pulmonary vascular congestion. No focal of which appeared no pleural effusion or pneumothorax. Bones are unremarkable. IMPRESSION: Cardiomegaly. CHF. Electronically signed by: Jomar Brothers M.D. 03/21/24 23:23 PM Code Status & VTE Plan Code Status Full code VTE Prophylaxis Plan VTE Prophylaxis will be ordered: Yes PG Care Time/CCT Total # of Minutes Spent Total Time Spent with Patient: Total time spent is greater than 50% in coordination of care (as documented) at patient's floor/unit and/or counseling patient: Coding Level of Care Code 21106 INT INP/OBS CARE MIN Diagnoses Hydronephrosis of left kidney N13.30 UTI (urinary tract infection) N30.01 Hematuria presence: with hematuria Urinary tract infection type: acute cystitis Obstruction of left ureteropelvic junction (UPJ) due to stone N20.1 Sepsis A41.9 Sepsis acute organ dysfunction status: unspecified Sepsis type: sepsis due to unspecified organism Acute kidney injury N17.9 Hypokalemia E87.6 Anemia D64.9 Hypertension I10 CHF (congestive heart failure) I50.9 Diabetes mellitus E11.9 Anxiety and depression F41.9; F32.A (2) UTI (urinary tract infection) Hematuria presence: with hematuria Urinary tract infection type: acute cystitis Qualified Code(s): N30.01 - Acute cystitis with hematuria (4) Sepsis Sepsis acute organ dysfunction status: unspecified Sepsis type: sepsis due to unspecified organism Qualified Code(s): A41.9 - Sepsis, unspecified organism
[2024-03-22] MEDS: POTASSIUM CHLORIDE CRTAB 20 MEQ TABCR PO STA (00:38)
[2024-03-22] MEDS: SODIUM CHLORIDE 0.9% 1,000 ML IV SCH (00:40)
[2024-03-22] MEDS ORDERED: HYDROcodone/ACETAMINOPHEN 10/325 TAB PO PRN (01:34)
[2024-03-22] MEDS ORDERED: ONDANSETRON INJ 2 MG/ML 2 ML VIAL IV PRN ×2 (01:34→10:31)
[2024-03-22] MEDS ORDERED: GLUCOSE 10 TAB/TUBE PO PRN (03:09)
[2024-03-22] MEDS ORDERED: CARBOHYDRATES FOR HYPOGLYCEMIA PO PRN (03:09)
[2024-03-22] MEDS ORDERED: GLUCAGON FOR INJ 1 MG VIAL SQ PRN (03:09)
[2024-03-22] MEDS ORDERED: GLUCOSE 40% GEL 15 GM TUBE PO PRN (03:09)
[2024-03-22] MEDS ORDERED: DEXTROSE 50% 50 ML SYRINGE IV PRN (03:09)
[2024-03-22] MEDS ORDERED: MoRPHine SULFATE 2 MG/ML CARP IV PRN (03:15)
[2024-03-22] MEDS: ATENOLOL 25 MG TABLET PO ONE (04:21)
[2024-03-22 06:06] LABS: Basophils # (auto) 0.02 K/uL (0.00-0.20); Basophils % (auto) 0.2 %; Eosinophils # (auto) 0.07 K/uL (0.00-0.50); Eosinophils % (auto) 0.6 %; Hematocrit (blood only) 26.3 % (37.0-47.0); Hematocrit (blood only) 26.6 % (37.0-47.0); Hemoglobin 7.9 g/dl (12.0-16.0); Immature Granulocytes # (auto) 0.07 K/uL (0.01-0.20); Immature Granulocytes % (auto) 0.6 %; Lymphocytes # (auto) 1.61 K/uL (1.20-3.40); Mean Corpuscular Hemoglobin 25.6 pg (25.0-34.0); Mean Corpuscular Volume 85.1 fL (80.0-100.0); Mean Platelet Volume 9.4 fL (9.4-12.4); Monocytes % (auto) 5.6 %; Neutrophils # (auto) 9.95 K/uL (1.40-6.50); Nucleated RBC # (auto) 0.03 K/uL (0.00-0.12); Nucleated RBC % (auto) 0.2 %; Platelet Count 484 K/uL (130-400); RDW Coefficient of Variation 16.5 % (11.5-14.5); RDW Standard Deviation 51.4 fL (36.4-46.3); Red Blood Count 3.09 M/uL (4.20-5.40); White Blood Count 12.42 K/ul (4.8-10.8)
[2024-03-22 06:21] LABS: Albumin Level 3.3 gm/dl (3.4-5.0); BUN Creatinine Ratio 28.3 (10-20); Bilirubin,Total 0.2 mg/dl (0.2-1.0); Calcium 8.5 mg/dl (8.6-10.3); Creatinine Clr Calc Pharmacy 37.3 ml/min; Globulin 3.2 gm/dl (2.5-4.0); Magnesium 2.2 mg/dl (1.7-2.4); Potassium 3.5 mmol/L (3.5-5.1); Total Protein 6.5 gm/dl (6.0-8.3)
[2024-03-22] MEDS: SODIUM CHLORIDE 0.9% 500 ML IV ONE (06:43)
[2024-03-22 06:56] LABS: Acanthocytes 1+; Polychromasia 1+
[2024-03-22] MEDS: INSULIN ASPART PER UNIT CHARGE SC SCH (08:01)
[2024-03-22] MEDS: FLUTICASONE FUROATE 200MCG 14 PUFFS/INHALER INH SCH (08:02)
[2024-03-22] MEDS: UMECLIDINIUM/VILANTEROL 62.5/25MCG 7 PUFFS/INHALER INH SCH (08:02)
[2024-03-22] MEDS: ATENOLOL 25 MG TABLET PO SCH (08:02)
[2024-03-22] MEDS ORDERED: ATORVASTATIN 40 MG TAB PO SCH (09:00)
[2024-03-22] MEDS ORDERED: TOPIRAMATE 50 MG TAB PO SCH (09:00)
[2024-03-22] MEDS ORDERED: lamoTRIgine 25 MG TAB PO SCH (09:00)
[2024-03-22] MEDS ORDERED: hydrALAZINE HCL 25 MG TAB PO SCH (09:00)
[2024-03-22] MEDS ORDERED: SERTRALINE HCL 100 MG TABLET PO SCH (09:00)
--- NOTE | 2024-03-22 09:22 | Urology Progress Note ---
Date of Service March 22, 2024 Assessment & Plan (1) Obstruction of left ureteropelvic junction (UPJ) due to stone: (2) Hydronephrosis of left kidney: (3) Acute kidney injury: (4) UTI (urinary tract infection): Plan 68 year-old female with an obstructing left UPJ stone and concern for UTI - Afebrile, normotensive but tachycardic this morning. - Labs show mild leukocytosis and creatinine 1.59. - UA appears infected, culture pending. - Pt had Ceftriaxone in the ED. - Will plan to proceed to OR today for cystoscopy, left retrograde pyelogram, left ureteral stent placement. - Risks and benefits to be reviewed with patient by Dr. Salazar. - Keep NPO. - Continue supportive care and antibiotic therapy - Urology to follow. Admission and Anticipated Discharge Date Admission Date: March 22, 2024 Supervising Physician Co-Signing Physician Notes Saw patient personally. Agree with the plan. Will proceed with cystoscopy, left retrograde pyelogram and left ureteral stent placement. Consent obtained. Patient marked Subjective Pt seen at bedside this AM. Awake and resting in bed on arrival. No acute distress. Denies f/c/n/v. No reported pain at present. Reports she voided this morning. Has been NPO. Review of Systems Constitutional: as per Subjective / HPI Genitourinary: as per Subjective / HPI Physical Exam Constitutional: no acute distress Respiratory: no respiratory distress Neurologic: awake Psychiatric: A+Ox3, euthymic affect Results & Data Vital Signs (Past 12 Hours) Vital Signs Temp Pulse Pulse Resp BP Pulse Ox Pulse Ox 03/22/24 07:29 36.8 C 132 H 21 131/84 98 03/22/24 06:15 108 H 113/70 03/22/24 03:35 36.9 C 105 H 20 108/69 97 03/22/24 02:40 114 H 03/22/24 02:00 03/22/24 01:49 37.4 C 120 H 18 147/104 H 95 03/22/24 01:34 95 03/22/24 01:00 120 H 20 125/79 98 03/21/24 23:30 112 H 20 149/101 H 98 03/21/24 22:47 116 H 20 126/97 98 03/21/24 22:00 93 H 20 148/93 H 93 03/21/24 21:47 110 H 20 95 03/21/24 21:38 119 H O2 Del Method O2 Del Method O2 Flow Rate O2 Flow Rate 03/22/24 07:29 Nasal Cannula 3 03/22/24 06:15 03/22/24 03:35 Nasal Cannula 3 03/22/24 02:40 03/22/24 02:00 Nasal Cannula 3 03/22/24 01:49 Nasal Cannula 3 03/22/24 01:34 Nasal Cannula 3 03/22/24 01:00 Nasal Cannula 3 03/21/24 23:30 Nasal Cannula 3 03/21/24 22:47 Nasal Cannula, Oxymask 2 03/21/24 22:00 Room Air 03/21/24 21:47 Room Air 03/21/24 21:38 PG Care Time/CCT Total # of Minutes Spent Total Time Spent with Patient: Total time spent is greater than 50% in coordination of care (as documented) at patient's floor/unit and/or counseling patient: Coding Level of Care Code 21979 SUB INP/OBS CARE MIN Diagnoses Obstruction of left ureteropelvic junction (UPJ) due to stone N20.1 Hydronephrosis of left kidney N13.30 Acute kidney injury N17.9 UTI (urinary tract infection) N30.01 Hematuria presence: with hematuria Urinary tract infection type: acute cystitis (4) UTI (urinary tract infection) Hematuria presence: with hematuria Urinary tract infection type: acute cystitis Qualified Code(s): N30.01 - Acute cystitis with hematuria
--- NOTE | 2024-03-22 09:45 | Cardiology Consultation ---
Date of Consultation March 22, 2024 Assessment & Plan (1) New onset atrial fibrillation: no prior diagnosis of atrial fibrillation, seen on EKG this morning symptomatic when physically active including walking, asymptomatic at rest currently on home atenolol 25mg BID consider IV diltiazem for better rate-control, transition to PO tomorrow - consider oral diltiazem daily for rate control as an outpatient [id number] score of 7 -> candidate for anticoagulant - consider Eliquis 5mg BID to continue outpatient once hemoglobin improves and stabilizes (see Anemia below) Ordered US carotid doppler Recommended to follow up in 3-4wks as an outpatient - if still having symptoms, consider cardioversion (2) Anemia: acute, 5mos history of hematuria, will undergo urologic procedure to remove obstructing stone in L UPJ Hgb low but improvin.4 -> 8.0 today trend Hgb following uro procedure (3) Hypertension: chronic, managed with home lisinopril 20mg BID and amlodipine 10mg qAM, atenolol 25mg BID transiently elevated BP during hospital stay - has not been administered her home lisinopril or amlodipine during hospital stay - as patient is currently having 2+ pitting edema, lisinopril 20mg BID recommended for BP if remains elevated (4) Diastolic congestive heart failure: patient unaware of CHF dx but listed in record normal EF based on echo this morning takes Lasix 40mg qAM with an additional 20mg prn for LE swelling (5) History of stroke: 5 and 10 years ago per patient - recalls at least one of the two was hemorrhagic - resulted in LLE weakness which is now improved to 4/5 strength no thrombi or emboli seen on echo this AM ordered US carotid doppler Supervising Physician Co-Signing Physician Notes Patient was seen and examined personally. History, physical and assessment plan was reviewed personally and agree with the above. Her echocardiogram was reviewed personally, this shows normal left ventricular function, concentric left ventricular hypertrophy and no significant valvular abnormality. Her atrial fibrillation is likely of relatively recent onset, but possibly several months, and she is not on an anticoagulant. With her current bleeding we cannot start 1 today, but should be started soon as possible. Will need to get input from nephrology and to make sure she is not having continued blood loss before we do that. Rate control has been initiated with intravenous diltiazem, this can be transitioned to oral. We can plan on her first oral dose tomorrow morning if we can achieve rate control. I would like to get a carotid ultrasound to make sure she does not have carotid disease, if she does not I would discontinue her platelet inhibitor, if she does we should probably continue both as that may have been a source of her stroke. History of Present Illness Reason for Consultation: new-onset atrial fibrillation Requesting Physician: Zari Piña MD Attending Physician: Iban Mccollum MD History of Present Illness Amber is a 68F with relevant past medical history of 2 strokes (perhaps 10 yrs and 5 yrs ago), HTN, CHF (no details), DM2, HLD on statin aspirin per reported history, and COPD who presented to [place] ED for about 5mos of hematuria, onset of LLQ and L flank pain within the last week, and minimal urine output for the past 3-4 days. It was found by EKG that patient was in atrial fibrillation with rate in the 110s-120s. Upon asking patient history of atrial fibrillation, she denies it ever being diagnosed before. Endorses feeling palpitations, racing heart, mild dizziness and nausea, and mild chest pain at times over the past 1-2 months. States the racing heart is pretty constant, but the palpitations, dizziness, and chest pain occur mainly when she is walking or exerting herself. Denies any instance of passing out, feeling particularly weak, or falling due to these symptoms. States her strokes happened 10 and 5 years ago, with at least one of the two involving "blood on the brain." States she had weakness in her left leg which she had to get rehab for, and is currently doing much better with it. When asked about her CHF history, patient did not recall the diagnosis, when it was diagnosed, or when she started taking Lasix, but endorses she has been taking Lasix for her LE edema. Denies any history of ND, PAD, or plaques. Denies any history of DVT or PE. Endorses distant past cigarette smoking, denies any alcohol or other drug use. Denies any recent fever, body aches, chills, sweats, syncope, headaches, vomit ing, abdominal pain, or numbness/tingling of extremities. Allergies Allergy/AdvReac Type Severity Reaction Status Date / Time No Known Allergies Allergy Unverified 03/21/24 23:33 Home Medications Medication Instructions Recorded Confirmed Type amlodipine 5 mg tablet 10 mg PO QAM 03/21/24 03/21/24 History aripiprazole 20 mg tablet 20 mg PO HS 03/21/24 03/21/24 History atenolol 25 mg tablet 25 mg PO BID 03/21/24 03/21/24 History atorvastatin 80 mg tablet 80 mg PO QAM 03/21/24 03/21/24 History cyclobenzaprine 5 mg tablet 5 mg PO HS PRN Muscle Spasm 03/21/24 03/21/24 History ezetimibe 10 mg tablet 10 mg PO HS 03/21/24 03/21/24 History fluticasone fur. 200 mcg-umeclid 1 ea inhalation QA 03/21/24 03/21/24 History 62.5 mcg-vilant 25 mcg inhalat.powder (Trelegy Ellipta) furosemide 20 mg tablet 20 mg PO DAILY PRN swelling 03/21/24 03/21/24 History furosemide 40 mg tablet 40 mg PO QAM 03/21/24 03/21/24 History hydralazine 25 mg tablet 25 mg PO AMHS 03/21/24 03/21/24 History hydrocodone 10 mg-acetaminophen 1 tab PO Q12 PRN Pain 03/21/24 03/21/24 History 325 mg tablet lamotrigine 25 mg tablet 50 mg PO QAM 03/21/24 03/21/24 History lisinopril 20 mg tablet 20 mg PO BID 03/21/24 03/21/24 History meloxicam 15 mg tablet 15 mg PO QAM 03/21/24 03/21/24 History metformin 500 mg tablet,extended 1,000 mg PO BID 03/21/24 03/21/24 History release 24 hr methenamine hippurate 1 gram tablet 1 g PO AMHS 03/21/24 03/21/24 History ondansetron HCl 4 mg tablet 4 mg PO Q8 PRN Nausea 03/21/24 03/21/24 History prazosin 2 mg capsule 2 mg PO HS 03/21/24 03/21/24 History sertraline 100 mg tablet 100 mg PO BID 03/21/24 03/21/24 History topiramate 50 mg tablet 50 mg PO AMHS 03/21/24 03/21/24 History trazodone 150 mg tablet 300 mg PO HS 03/21/24 03/21/24 History Patient History Medical History Anxiety and depression CHF (congestive heart failure) Hypertension Social History Smoking Status: Former smoker Tobacco Type: Cigarettes Cigarettes Per Day: quit 17 years ago; Second Hand Exposure: No; Do You Dip or Chew Tobacco: No; Tobacco Cessation Education Requested by Patient: No Hx Alcohol Use: No Hx Substance Use: No Preferred Language: Palauan Communication Ability: Effective Atm Technician Required: No Beliefs That Will Affect Care: None Current Living Situation: Alone Current Living Situation Comment: lives at home either alone or with () Other Information That Helps Us Care for You: No Feels Safe at Home: Yes Safety Concerns: Feels Safe At This Time Assistive Devices: Cane Review of Systems Review of Systems: per HPI Physical Exam Physical Exam: Constitutional: A&Ox4, appears stated age, in no acute distress HEENT: NC/AT, EOM intact, anicteric sclerae, PERRLA b/l Cardiovascular: irregularly irregular rhythm, tachycardic, +s1/s2, slight la teral displacement of PMI, no murmurs/rubs/gallops heard on auscultation - pulses: 2+ carotid pulses b/l, 2+ radi al pulses b/l; unable to palpate posterior tibial or dorsalis pedis pulses due to peripheral edema (see MSK below) Respiratory: clear to auscultation b/l, good equal air entry b/l, no wheezes/rales/rhonchi heard on auscultation GI: abdomen soft, +BS, nontender to palpation MSK: 4/5 strength in LLE, otherwise 5/5 strength in extremities; 2+ pitting edema b/l LE up to mid-araiza, mild tenderness to palpation but no erythema, warmth, or lesions/sores observed Neuro: no facial droop, speech intact, no hearing deficits, sensation grossly intact Results & Data Vital Signs (Past 12 Hours) Vital Signs Temp Pulse Pulse Resp BP Pulse Ox Pulse Ox 03/22/24 07:29 36.8 C 132 H 21 131/84 98 03/22/24 06:15 108 H 113/70 03/22/24 03:35 36.9 C 105 H 20 108/69 97 03/22/24 02:40 114 H 03/22/24 02:00 03/22/24 01:49 37.4 C 120 H 18 147/104 H 95 03/22/24 01:34 95 03/22/24 01:00 120 H 20 125/79 98 03/21/24 23:30 112 H 20 149/101 H 98 03/21/24 22:47 116 H 20 126/97 98 03/21/24 22:00 93 H 20 148/93 H 93 03/21/24 21:47 110 H 20 95 O2 Del Method O2 Del Method O2 Flow Rate O2 Flow Rate 03/22/24 07:29 Nasal Cannula 3 03/22/24 06:15 03/22/24 03:35 Nasal Cannula 3 03/22/24 02:40 03/22/24 02:00 Nasal Cannula 3 03/22/24 01:49 Nasal Cannula 3 03/22/24 01:34 Nasal Cannula 3 03/22/24 01:00 Nasal Cannula 3 03/21/24 23:30 Nasal Cannula 3 03/21/24 22:47 Nasal Cannula, Oxymask 2 03/21/24 22:00 Room Air 03/21/24 21:47 Room Air Laboratory Results Cardiac Enzymes 03/21/24 03/22/24 Range/Units 21:27 05:21 AST 59 H 54 H (13-39) U/L CBC 03/21/24 03/22/24 03/22/24 Range/Units 21:27 05:21 05:21 WBC 11.89 H 12.42 H (4.8-10.8) K/ul RBC 2.87 L 3.09 L (4.20-5.40) M/uL Hgb 7.4 L 7.9 L 8.0 L (12.0-16.0) g/dl Hct 24.3 L 26.3 L (37.0-47.0) % Plt Count 424 H (130-400) K/uL Neut # (Auto) 10.00 H (1.40-6.50) K/uL Lymph # (Auto) 1.16 L (1.20-3.40) K/uL [place] # (Auto) 0.62 H (0.11-0.59) K/uL Eos # (Auto) 0.03 (0.00-0.50) K/uL Baso # (Auto) 0.02 (0.00-0.20) K/uL 03/22/24 Range/Units 05:21 WBC (4.8-10.8) K/ul RBC (4.20-5.40) M/uL Hgb (12.0-16.0) g/dl Hct 26.6 L (37.0-47.0) % Plt Count 484 H (130-400) K/uL Neut # (Auto) 9.95 H (1.40-6.50) K/uL Lymph # (Auto) 1.61 (1.20-3.40) K/uL [place] # (Auto) 0.70 H (0.11-0.59) K/uL Eos # (Auto) 0.07 (0.00-0.50) K/uL Baso # (Auto) 0.02 (0.00-0.20) K/uL Comprehensive Metabolic Panel 03/21/24 03/22/24 Range/Units 21:27 05:21 Sodium 138 143 (136-145) mmol/L Potassium 3.1 L 3.5 (3.5-5.1) mmol/L Chloride 103 108 H (98-107) mmol/L Carbon Dioxide 24 22 (21-32) mmol/L BUN 46 H 45 H (6-23) mg/dl Creatinine 1.78 H 1.59 H (0.6-1.2) mg/dl Glucose 92 84 (70-99(Fasting)) mg/dl Calcium 8.6 8.5 L (8.6-10.3) mg/dl AST 59 H 54 H (13-39) U/L ALT 37 39 (7-52) U/L Alkaline Phosphatase 72 68 (34-104) U/L Total Protein 6.1 6.5 (6.0-8.3) gm/dl Albumin 3.2 L 3.3 L (3.4-5.0) gm/dl Intake and Output 03/21/24 03/22/24 03/22/24 22:59 06:59 14:59 Intake Total 999 [id number] 1890 / 1890 Output Total 225 / 225 301 / 301 Balance 1000 / 1825 825 / 1825 1589 / 1589 Intake: IV 999 105 / 0 1500 / 1500 Sodium Chloride 0.9% 1,000 ml @ 1000 / 2000 1000 / 2000 1500 / 1500 80 mls/hr IV .[id number] IVAN Rx#: [id number] SODIUM 2,000 mg In 50 / 50 50 ml @ 100 mls/hr IV NOW STA Rx#:[id number] IV Perioperative 150 / 150 Oral 240 / 240 Output: Urine 225 / 225 301 / 301 Estimated Blood Loss 0 / 0 Other: # Unmeasured Voids 1 Weight 97 kg 97 kg Weight Measurement Method [facility] Patient Weight 03/23/24 06:59 Weight 97 kg Diagnostic Findings Chest X-Ray 03/21/24 21:41 COMPARISON: No relevant prior studies available. FINDINGS: Moderate cardiomegaly. Atherosclerotic calcifications of the aortic arch. Mild pulmonary vascular congestion. No focal of which appeared no pleural effusion or pneumothorax. Bones are unremarkable. IMPRESSION: Cardiomegaly. CHF. ECG Additional Comments: atrial fibrillation with 94 ventricular rate, otherwise unremarkable no prior EKG for comparison but does not appear to have had an ND in the past or present PG Care Time/CCT Total # of Minutes Spent Total Time Spent with Patient: Total time spent is greater than 50% in coordination of care (as documented) at patient's floor/unit and/or counseling patient: Coding Level of Care Code 07289 INT INP/OBS CARE 3/75MIN Diagnoses New onset atrial fibrillation I48.91 Anemia, unspecified type D64.9 Anemia type: unspecified type Hypertension, unspecified type I10 Hypertension type: unspecified Chronic diastolic congestive heart failure I50.32 Heart failure chronicity: chronic History of stroke Z86.73 Time Spent (min) 65 Resident Activity Tracking Resident Involvement: Resident Care Provided Care Provided: Adult Hospital Medicine (2) Anemia Anemia type: unspecified type Qualified Code(s): D64.9 - Anemia, unspecified (3) Hypertension Hypertension type: unspecified Qualified Code(s): I10 - Essential (primary) hypertension (4) Diastolic congestive heart failure Heart failure chronicity: chronic Qualified Code(s): I50.32 - Chronic diastolic (congestive) heart failure
[2024-03-22] MEDS ORDERED: LIDOCAINE 2% 2 ML VIAL/AMP(20MG/ML) INFIL ONE (10:00)
[2024-03-22] MEDS ORDERED: fentaNYL citrate PF 100 MCG/2 ML VIAL ONE (10:00)
[2024-03-22] MEDS ORDERED: PROPOFOL IV EMULSION 10 MG/ML 20 ML VIAL IV ONE (10:00)
[2024-03-22] MEDS ORDERED: MIDAZOLAM HCL 1 MG/ML 2ML VIAL ONE (10:00)
--- NOTE | 2024-03-22 10:30 | Anesthesiology Consultation ---
Date of Service March 22, 2024 Assessment & Plan (1) Encounter for pre-operative examination: Chart Review Chart Review: Patient NOT seen in Pre Admission Testing Consults Requested none History Surgery Operation Date: 03/22/24 12:00 Proposed Procedures p Cystoscopy, Left Retrograde Pyeologram, Stent Placement - Corey Salazar MD Height/Weight Height: 5 ft 2 in Weight: 97 kg Allergies Allergy/AdvReac Type Severity Reaction Status Date / Time No Known Allergies Allergy Unverified 03/21/24 23:33 Medications Home Medications Medication Instructions Recorded Confirmed Last Taken amlodipine 5 mg tablet 10 mg PO QAM 03/21/24 03/21/24 03/21/24 aripiprazole 20 mg tablet 20 mg PO HS 03/21/24 03/21/24 03/20/24 22:00 atenolol 25 mg tablet 25 mg PO BID 03/21/24 03/21/24 03/21/24 08:00 atorvastatin 80 mg tablet 80 mg PO QAM 03/21/24 03/21/24 03/21/24 08:00 cyclobenzaprine 5 mg tablet 5 mg PO HS PRN Muscle Spasm 03/21/24 03/21/24 Unknown ezetimibe 10 mg tablet 10 mg PO HS 03/21/24 03/21/24 03/20/24 fluticasone fur. 200 mcg-umeclid 1 ea inhalation QAM 03/21/24 03/21/24 Unknown 62.5 mcg-vilant 25 mcg inhalat.powder (Trelegy Ellipta) furosemide 20 mg tablet 20 mg PO DAILY PRN swelling 03/21/24 03/21/24 Unknown furosemide 40 mg tablet 40 mg PO QAM 03/21/24 03/21/24 03/19/24 hydralazine 25 mg tablet 25 mg PO AMHS 03/21/24 03/21/24 03/21/24 08:00 hydrocodone 10 mg-acetaminophen 1 tab PO Q12 PRN Pain 03/21/24 03/21/24 03/21/24 00:05 325 mg tablet lamotrigine 25 mg tablet 50 mg PO QAM 03/21/24 03/21/24 03/21/24 08:00 lisinopril 20 mg tablet 20 mg PO BID 03/21/24 03/21/24 03/21/24 08:00 meloxicam 15 mg tablet 15 mg PO QAM 03/21/24 03/21/24 03/21/24 08:00 metformin 500 mg tablet,extended 1,000 mg PO BID 03/21/24 03/21/24 03/21/24 08:00 release 24 hr methenamine hippurate 1 gram tablet 1 g PO AMHS 03/21/24 03/21/24 03/21/24 08:00 ondansetron HCl 4 mg tablet 4 mg PO Q8 PRN Nausea 03/21/24 03/21/24 Unknown prazosin 2 mg capsule 2 mg PO HS 03/21/24 03/21/24 03/20/24 22:00 sertraline 100 mg tablet 100 mg PO BID 03/21/24 03/21/24 03/21/24 08:00 topiramate 50 mg tablet 50 mg PO AMHS 03/21/24 03/21/24 03/21/24 08:00 trazodone 150 mg tablet 300 mg PO HS 03/21/24 03/21/24 03/20/24 22:00 Active Medications Generic Name Dose Route Start Last Admin Trade Name Zane PRN Reason Stop Dose Admin Atenolol 25 mg 03/22/24 09:00 03/22/24 08:02 Atenolol 25 Mg Tablet PO 04/21/24 08:59 25 mg BID IVAN Administration Fluticasone Furoate 1 puffs 03/22/24 09:00 03/22/24 08:02 Fluticasone Furoate 200mcg 14 Puffs/Inhaler INH 04/21/24 08:59 1 puffs QAM IVAN Administration Sodium Chloride 1,000 mls @ 80 mls/hr 03/22/24 00:30 03/22/24 00:40 Nss IV 03/22/24 12:59 80 mls/hr .[id number] IVAN Administration Insulin Aspart 0 units 03/22/24 07:30 03/22/24 08:01 Insulin Aspart Per Unit Charge SC 04/21/24 07:29 Not Given ACHS IVAN Umeclidinium/Vilanterol 1 puffs 03/22/24 09:00 03/22/24 08:02 Umeclidinium/Vilanterol 62.5/25mcg 7 Puffs/Inhaler INH 04/21/24 08:59 1 puffs DAILY IVAN Administration NPO Date Last Intake of Fluids: 03/22/24 Time Last Intake of Fluids: 08:02 Date Last Intake of Solids: 03/21/24 Time Last Intake of Solids: 19:00 Past Medical History Medical History Anxiety and depression CHF (congestive heart failure) Hypertension Social History Smoking Status: Former smoker Smoking cigarettes per day: quit 17 years ago Do You Dip or Chew Tobacco: No Hx Alcohol Use: No Hx Substance Use: No substance use type: does not use Physical Exam Vital Signs Last Vital Signs Temp 98.6 F 03/22/24 09:48 Pulse 112 H 03/22/24 09:48 Resp 20 03/22/24 09:48 BP 144/98 H 03/22/24 09:48 Pulse Ox 95 03/22/24 09:48 O2 Del Method Nasal Cannula 03/22/24 09:48 O2 Flow Rate 3 03/22/24 09:48 Testing Laboratory Results 03/22/24 05:21 03/22/24 05:21 Urine Color Dark Yellow 03/21/24 21:45 Urine Appearance Cloudy (Clear) A 03/21/24 21:45 Urine pH 5.5 (4.5-7.5) 03/21/24 21:45 Ur Specific [place] 1.017 (1.000-1.030) 03/21/24 21:45 Urine Protein 1+ (Negative) H 03/21/24 21:45 Urine Glucose (UA) Negative (Negative) 03/21/24 21:45 Urine Ketones Negative (Negative) 03/21/24 21:45 Urine Nitrite Positive (Negative) A 03/21/24 21:45 Ur Leukocyte Esterase 3+ (Negative) H 03/21/24 21:45 Urine WBC (Auto) >50 /hpf (0-5) H 03/21/24 21:45 Urine RBC (Auto) 0-2 /hpf (0-2) 03/21/24 21:45 U Hyaline Cast (Auto) 11-20 /lpf (0-2) H 03/21/24 21:45 U Epithel Cells (Auto) 0-2 /hpf (0-2) 03/21/24 21:45 Urine Bacteria (Auto) 3+ (None Seen) H 03/21/24 21:45 Blood Type O Positive 03/21/24 22:56 Antibody Screen NEGATIVE 03/21/24 22:56 03/22/24 03/22/24 09:44 05:22 POC Glucose 95 92
[2024-03-22] MEDS ORDERED: fentaNYL citrate PF 100 MCG/2 ML VIAL IV PRN (10:31)
[2024-03-22] MEDS ORDERED: ePHEDrine sulfate 50 MG/ML AMP IV PRN (10:31)
[2024-03-22] MEDS ORDERED: ATROPINE SULFATE 0.1 MG/ML 10ML SYR IV PRN (10:31)
[2024-03-22] MEDS: DIATRIZOATE MEGLUMINE 30% 100ML VIAL INSTIL ONE (10:54)
--- NOTE | 2024-03-22 11:05 | Operative Report ---
[facility] Post Operative Report Pre & Post Diagnosis Operation Date: 03/22/24 12:00 Pre-Op Diagnosis: Hydronephrosis Post-Op Diagnosis: Hydronephrosis I identified the patient and participated in the time-out.: Yes Procedure Operation Date: 03/22/24 12:00 Actual Procedures p Cystoscopy, Left Retrograde Pyelogram with radiographic interpretation, Stent Placement(Left) - Corey Salazar MD Surgeon Corey Salazar MD Director Records Management None Estimated Blood Loss 0 Findings See Below Retrograde showed moderate hydronephrosis. Stent in appropriate position. Fairly large amount of purulent urine from left UO. Specimens None Drains 6 [place] by 24 cm left ureteral stent Indications 68-year-old female with a left proximal obstructing ureteral calculus concern for infection. Description of Procedure After informed consent was obtained, the patient was transported operative suite. MAC anesthesia was induced. The patient was placed in dorsal lithotomy position prepped and draped in a sterile fashion. They received preoperative ceftriaxone for antibiotic prophylaxis. An appropriate surgical timeout was performed. A 22 [place] rigid scope was inserted per urethra into the bladder. Calderon cystoscopy revealed no stones or lesions. I turned my attention the left ureteral orifice and intubated this with a 5 [place] open-ended catheter. A left retrograde pyelogram was shot which showed moderate hydronephrosis. A sensor wire was advanced into the kidney and confirmed fluoroscopically. A 6 [place] by 24 cm left ureteral stent was deployed with a good proximal coil in the renal pelvis and a good distal coil noted in the bladder. There was a fairly large amount of purulent urine from the left UO. These were confirmed fluoroscopically and under direct visualization, respectively. The bladder was emptied and the scope was removed. This concluded the end of the case. All counts were correct at the end of the case. I was present, scrubbed, and actively participated for the entirety of the proc edure. I attest to the content of the Intraoperative Record and any orders documented therein. Any exceptions are noted below.
--- NOTE | 2024-03-22 11:28 | Fluoroscopy Report ---
FL retrograde includes kub CLINICAL HISTORY: ADD ON STENT PLACEMENT LEFTleft-sided cystourethrogram COMPARISON STUDY: CT 03/21/2024 FLUOROSCOPY TIME: 12.1 seconds FLUOROSCOPY IMAGES: 1 EXPOSURE DOSE: 6.50 mGy FINDINGS: Proximal portion of a left ureteral stent is in satisfactory position. The distal portion o f the stent was not imaged. IMPRESSION: Fluoroscopic assistance as above. ACT 112: Negative or not required by law. Electronically signed by: Jayden Hwang M.D. 03/22/2024 11:27 AM
--- NOTE | 2024-03-22 12:29 | Anesthesiology Progress Note ---
Date of Service March 22, 2024 Anesthesia Post Procedure Vital Signs Vital Signs: Temp Pulse Pulse Resp BP BP Pulse Ox 03/22/24 11:52 99.5 F 116 H 22 138/95 95 03/22/24 11:41 123 H 19 132/82 95 03/22/24 11:25 111 H 25 H 119/86 96 03/22/24 11:15 119 H 25 H 129/74 95 03/22/24 11:05 98.8 F 94 H 20 113/70 94 03/22/24 09:48 98.6 F 112 H 20 144/98 H 95 03/22/24 08:02 109 H 03/22/24 08:02 03/22/24 07:29 98.2 F 132 H 21 131/84 98 03/22/24 06:15 108 H 113/70 03/22/24 03:35 98.4 F 105 H 20 108/69 97 03/22/24 02:40 114 H 03/22/24 02:00 03/22/24 01:49 99.3 F 120 H 18 147/104 H 95 03/22/24 01:34 03/22/24 01:00 120 H 20 125/79 98 03/21/24 23:30 112 H 20 149/101 H 98 03/21/24 22:47 116 H 20 126/97 98 03/21/24 22:00 93 H 20 148/93 H 93 03/21/24 21:47 110 H 20 95 03/21/24 21:38 119 H 03/21/24 20:41 96.8 F L 118 H 16 119/74 95 Pulse Ox O2 Del Method O2 Del Method O2 Flow Rate O2 Flow Rate 03/22/24 11:52 Nasal Cannula 3 03/22/24 11:41 Nasal Cannula 3 03/22/24 11:25 Nasal Cannula 3 03/22/24 11:15 Nasal Cannula 3 03/22/24 11:05 Nasal Cannula 3 03/22/24 09:48 Nasal Cannula 3 03/22/24 08:02 03/22/24 08:02 Nasal Cannula 3 03/22/24 07:29 Nasal Cannula 3 03/22/24 06:15 03/22/24 03:35 Nasal Cannula 3 03/22/24 02:40 03/22/24 02:00 Nasal Cannula 3 03/22/24 01:49 Nasal Cannula 3 03/22/24 01:34 95 Nasal Cannula 3 03/22/24 01:00 Nasal Cannula 3 03/21/24 23:30 Nasal Cannula 3 03/21/24 22:47 Nasal Cannula, Oxymask 2 03/21/24 22:00 Room Air 03/21/24 21:47 Room Air 03/21/24 21:38 03/21/24 20:41 Room Air Pain Intensity Lower Back: Pain Intensity: 8 Transfer of Care Handoff Completed per policy Notes Mental Status: alert / awake / arousable and participated in evaluation Patient Amnestic to Procedure: Yes Nausea / Vomiting: adequately controlled Pain: adequately controlled Airway Patency, RR, SpO2: stable & adequate BP & HR: stable & adequate Hydration State: stable & adequate Anesthetic Complications: no major complications apparent and Pt Satisfied with anesthetic care
[2024-03-22] MEDS ORDERED: STAT IV Infusion **Titration per Protocol STA (13:19)
--- NOTE | 2024-03-22 13:19 | Hospitalist Progress Note ---
Date of Service March 22, 2024 Assessment & Plan (1) Obstruction of left ureteropelvic junction (UPJ) due to stone: Plan: large, >10mm, obstructing kidney stone at UPJ s/p ureteral stent placement by [facility] Urology today urine flowing from left kidney was purulent suggestive of left-sided pyelonephritis cont rocephin IV follow urine cx appreciate [facility] Urology assistance topamax is contraindicated with kidney stones thus it has been stopped (2) Hydronephrosis of left kidney: Plan: 2nd to large obstructing stone on left see #1 above (3) UTI (urinary tract infection): Plan: complicated, in the setting of obstructing kidney stone see above cont rocephin (4) Sepsis: Plan: 2nd to complicated UTI cont rocephin follow urine cx (5) Acute kidney injury: Plan: presenting Cr 1.78 2nd to sepsis and obstruction from her left sided kidney stone Cr now 1.59 --> improving BMP am HOLDING GUILLAUME HOLDING NSAIDs HOLDING diuretics (6) Hypokalemia: Plan: replace serial BMPs (7) Anemia: Plan: 2nd to chronic blood loss (hematuria) Fe level undetectable Ferritin not low but likely is 77 due to acute phase reactant B12 level low --> replace Vitamin B12 1000mcg daily Folate wnl Consider PO Fe Defer on IV Fe due to concurrent infection Pt is symptomatic - dizzy, lightheaded, tachy, etc. Tx 1 unit PRBCs consent obtained CBC am (8) Hypertension: Plan: Change atenolol to metoprolol (for a.fib) Adding dilt drip for a.fib rate control HOLD lisinopril due to ARELY (9) CHF (congestive heart failure): Plan: patient denies any past h/o such she does not examine hypervolemic today echo is pending (10) Diabetes mellitus: Plan: check an a1c while here cont novolog SSI hold metformin (11) Anxiety and depression: Plan: cont all home meds EXCEPT topamax (relative contraindicated due to kidney stone) (12) Atrial fibrillation with RVR: Plan: presented to [facility] in such no prior history of a.fib rates quite high this am plan - 1. diltiazem drip 2. change atenolol to metoprolol, 25mg BID 3. Tx 1 unit PRBCs 4. poor candidate for anticoagulation due to 6 months of hematuria; hold on systemic anticoagulation for now (but, ideally, she take something ultimately due to high CHADS-VASc) 5. check TSH 6. replace low K 7. f/u on echo (13) Morbid obesity with BMI of 40.0-44.9, adult: Plan: BMI 40 Plan abnormal LFTs- 2nd statin? other? repeat LFTs am; hold stain updated at bedside will ultimately need PT/OT Admission and Anticipated Discharge Date Admission Date: March 22, 2024 Subjective saw patient post-cystoscopy with stent placement she was resting comfortably in bed she reports just mild abdominal discomfort on the left side no vomiting denies any past h/o a.fib did see cardiology 1x in [place] years ago but can't remember why she saw them denies any h/o CHF denies any dyspnea today no chest pain she has noted palpitations/heart racing at home for some time she also noted dizziness / lightheadedness tele - rapid a.fib, rates >100 Review of Systems Review of Systems: gen - no fevers or chills cv - no chest pain, no orthopnea pulm - no dyspnea at rest GI - no nausea Physical Exam Physical Exam: gen - obese, NAD, pallor neck - no JVD mouth - MM dry heart - tachy, irregularly irregular, s1 s2, no obvious murmur lungs - fine, dry b/l basilar rales, no wheezing, no increased work of breathing abd - soft ND BS+; mildly tender left side of abdomen ext - pulses 2+ b/l, no edema psych - a/o x 3 Results & Data Results & Data Vital Signs (Past 12 Hours) Vital Signs Temp Pulse Pulse Resp BP Pulse Ox Pulse Ox 03/22/24 11:52 37.5 C 116 H 22 138/95 95 03/22/24 11:41 123 H 19 132/82 95 03/22/24 11:25 111 H 25 H 119/86 96 03/22/24 11:15 119 H 25 H 129/74 95 03/22/24 11:05 37.1 C 94 H 20 113/70 94 03/22/24 09:48 37 C 112 H 20 144/98 H 95 03/22/24 08:02 109 H 03/22/24 08:02 03/22/24 07:29 36.8 C 132 H 21 131/84 98 03/22/24 06:15 108 H 113/70 03/22/24 03:35 36.9 C 105 H 20 108/69 97 03/22/24 02:40 114 H 03/22/24 02:00 03/22/24 01:49 37.4 C 120 H 18 147/104 H 95 03/22/24 01:34 95 O2 Del Method O2 Del Method O2 Flow Rate O2 Flow Rate 03/22/24 11:52 Nasal Cannula 3 03/22/24 11:41 Nasal Cannula 3 03/22/24 11:25 Nasal Cannula 3 03/22/24 11:15 Nasal Cannula 3 03/22/24 11:05 Nasal Cannula 3 03/22/24 09:48 Nasal Cannula 3 03/22/24 08:02 03/22/24 08:02 Nasal Cannula 3 03/22/24 07:29 Nasal Cannula 3 03/22/24 06:15 03/22/24 03:35 Nasal Cannula 3 03/22/24 02:40 03/22/24 02:00 Nasal Cannula 3 03/22/24 01:49 Nasal Cannula 3 03/22/24 01:34 Nasal Cannula 3 Laboratory Results Laboratory Results - last 24 hr 03/21/24 03/22/24 03/22/24 22:56 05:21 09:44 WBC RBC Hgb Hct MCV MCH MCHC RDW Std Deviation RDW Coeff of Nicolas Plt Count MPV Immature Gran % (Auto) Neut % (Auto) Lymph % (Auto) [place] % (Auto) Eos % (Auto) Baso % (Auto) Neut # (Auto) Lymph # (Auto) [place] # (Auto) Eos # (Auto) Baso # (Auto) Immature Gran # (Auto) Polychromasia 1+ Acanthocytes (Spur) 1+ Sodium 143 Potassium 3.5 Chloride 108 H Carbon Dioxide 22 Anion Gap 13 H BUN 45 H Creatinine 1.59 H Est Cr Clr Drug Dosing 37.3 eGFR 35.39 BUN/Creatinine Ratio 28.3 H Glucose 84 POC Glucose 95 Calcium 8.5 L Magnesium 2.2 Iron TIBC Unsaturated IBC Transferrin % Sat Ferritin Total Bilirubin 0.2 AST 54 H ALT 39 Alkaline Phosphatase 68 Total Protein 6.5 Albumin 3.3 L Globulin 3.2 Albumin/Globulin Ratio 1.0 Vitamin B12 Folate Stone Source Stone Weight Stone Composition Stone Composition 2 Blood Type O Positive Antibody Screen NEGATIVE Crossmatch See Detail 03/22/24 03/22/24 03/22/24 11:10 16:09 20:29 WBC RBC Hgb 7.6 L Hct 25.1 L MCV MCH MCHC RDW Std Deviation RDW Coeff of Nicolas Plt Count MPV Immature Gran % (Auto) Neut % (Auto) Lymph % (Auto) [place] % (Auto) Eos % (Auto) Baso % (Auto) Neut # (Auto) Lymph # (Auto) [place] # (Auto) Eos # (Auto) Baso # (Auto) Immature Gran # (Auto) Polychromasia Acanthocytes (Spur) Sodium Potassium Chloride Carbon Dioxide Anion Gap BUN Creatinine Est Cr Clr Drug Dosing eGFR BUN/Creatinine Ratio Glucose POC Glucose 87 104 H 102 H Calcium Magnesium Iron < 10 L TIBC TNP Unsaturated IBC 213 Transferrin % Sat TNP Ferritin 77.4 Total Bilirubin AST ALT Alkaline Phosphatase Total Protein Albumin Globulin Albumin/Globulin Ratio Vitamin B12 219 Folate > 22.30 Stone Source Stone Weight Stone Composition Stone Composition 2 Blood Type Antibody Screen Crossmatch PG Care Time/CCT Total # of Minutes Spent Total Time Spent with Patient: Total time spent is greater than 50% in coordination of care (as documented) at patient's floor/unit and/or counseling patient: Coding Level of Care Code 99646 SUB INP/OBS CARE 3/50MIN Diagnoses Obstruction of left ureteropelvic junction (UPJ) due to stone N20.1 Hydronephrosis of left kidney N13.30 UTI (urinary tract infection) N30.01 Hematuria presence: with hematuria Urinary tract infection type: acute cystitis Sepsis A41.9 Sepsis acute organ dysfunction status: unspecified Sepsis type: sepsis due to unspecified organism Acute kidney injury N17.9 Hypokalemia E87.6 Anemia, unspecified type D64.9 Anemia type: unspecified type Hypertension, unspecified type I10 Hypertension type: unspecified CHF (congestive heart failure) I50.9 Diabetes mellitus E11.9 Anxiety and depression F41.9; F32.A Atrial fibrillation with RVR I48.91 Morbid obesity with BMI of 40.0-44.9, adult E66.01; Z68.41 (3) UTI (urinary tract infection) Hematuria presence: with hematuria Urinary tract infection type: acute cystitis Qualified Code(s): N30.01 - Acute cystitis with hematuria (4) Sepsis Sepsis acute organ dysfunction status: unspecified Sepsis type: sepsis due to unspecified organism Qualified Code(s): A41.9 - Sepsis, unspecified organism (7) Anemia Anemia type: unspecified type Qualified Code(s): D64.9 - Anemia, unspecified (8) Hypertension Hypertension type: unspecified Qualified Code(s): I10 - Essential (primary) hypertension
[2024-03-22] MEDS: dilTIAZem HCL 125 MG in DEXTROSE 5% 100 ML IV SCH (13:51)
[2024-03-22 16:37] LABS: Hematocrit (blood only) 25.1 % (37.0-47.0); Hemoglobin 7.6 g/dl (12.0-16.0)
[2024-03-22 16:47] LABS: Iron < 10 mcg/dl (35-150); Unsaturated Iron Binding Cap 213 mcg/dl (155-355)
[2024-03-22] MEDS ORDERED: SODIUM CHLORIDE 0.9% 50 ML IV PRN (17:02)
[2024-03-22] MEDS ORDERED: SODIUM CHLORIDE 0.9% 100 ML IV PRN (17:02)
[2024-03-22 17:06] LABS: Ferritin 77.4 ng/ml (8-388)
[2024-03-22 17:13] LABS: Folate (Folic Acid),Ser orPlas > 22.30 ng/ml (>5.38); Vitamin B12 219 pg/ml (180-914)
[2024-03-22] MEDS: ACETAMINOPHEN 325 MG TAB PO PRN (17:16)
[2024-03-22] MEDS: traZODone HCL 100 MG TAB PO SCH (20:36)
[2024-03-22] MEDS: ARIPiprazole 10 MG TAB PO SCH (20:36)
[2024-03-22] MEDS: EZETIMIBE 10 MG TAB PO SCH (20:36)
[2024-03-22] MEDS: METOPROLOL TARTRATE 25 MG TAB PO SCH (21:33)
[2024-03-22] MEDS: cefTRIAXone SODIUM 2,000 MG/50 ML BAG IV SCH (21:33)
--- NOTE | 2024-03-23 01:11 | Ultrasound Report ---
Exam(s): US CAROTID EXAM: US Duplex Bilateral Extracranial Arteries CLINICAL HISTORY: Reason for exam: history of stroke 5 and 10 years ago. TECHNIQUE: Real-time duplex ultrasound scan of the extracranial arteries integrating B-mode two-dimensional vascular structure, Doppler spectral analysis and color flow Doppler imaging. COMPARISON: None FINDINGS: Right common carotid artery: Unremarkable. No occlusion or significant stenosis on color flow and spectral Doppler imaging. Right internal carotid artery: Peak systolic velocity in the right ICA measures 82.1 cm/s. No occlusion or significant stenosis on color flow and spectral Doppler imaging. Right external carotid artery: Unremarkable. No occlusion or significant stenosis on color flow and spectral Doppler imaging. Right vertebral artery: Unremarkable. Antegrade flow. Right ICA/CCA ratio: Unremarkable. Within normal limits. Left common carotid artery: Unremarkable. No occlusion or significant stenosis on color flow and spectral Doppler imaging. Left internal carotid artery: Peak systolic velocity in the left ICA measures 184.2 cm/s. No occlusion or significant stenosis on color flow and spectral Doppler imaging. Left external carotid artery: Unremarkable. No occlusion or significant stenosis on color flow and spectral Doppler imaging. Left vertebral artery: Unremarkable. Antegrade flow. Left ICA/CCA ratio: Unremarkable. Within normal limits. Lymph nodes: Unremarkable. No lymphadenopathy. CAROTID STENOSIS REFERENCE USING SRU CRITERIA: Mild - <50% stenosis. ICA PSV is less than 125 cm/second and plaque or intimal thickening is visible. Moderate - 50-69% stenosis. ICA PSV is 125 to 230 cm/second and plaque is visible. Severe - 70-94% stenosis. ICA PSV is more than 230 cm/second and visible plaque with lumen narrowing is seen. Near occlusion - 95-99% stenosis. ICA PSV is variable and significant plaque with luminal narrowing is seen. Occluded - 100% stenosis. No flow identified. IMPRESSION: 1. No hemodynamically significant stenosis in the right ICA. 2. 50-69% stenosis in the left ICA. 3. Normal antegrade flow in bilateral vertebral arteries. Electronically signed by: Yung Solorzano M.D. 03/23/24 01:09 AM
[2024-03-23] MEDS: MELATONIN 3 MG TAB PO PRN (02:11)
[2024-03-23 05:58] LABS: Basophils # (auto) 0.01 K/uL (0.00-0.20); Basophils % (auto) 0.1 %; Eosinophils # (auto) 0.07 K/uL (0.00-0.50); Hematocrit (blood only) 25.5 % (37.0-47.0); Hemoglobin 8.1 g/dl (12.0-16.0); Immature Granulocytes # (auto) 0.03 K/uL (0.01-0.20); Immature Granulocytes % (auto) 0.4 %; Lymphocytes # (auto) 0.99 K/uL (1.20-3.40); Lymphocytes % (auto) 14.6 %; Mean Corpuscular Hgb Conc 31.8 g/dL (32.0-36.0); Mean Platelet Volume 8.9 fL (9.4-12.4); Monocytes # (auto) 0.52 K/uL (0.11-0.59); Monocytes % (auto) 7.7 %; Neutrophils # (auto) 5.17 K/uL (1.40-6.50); Neutrophils % (auto) 76.2 %; Platelet Count 406 K/uL (130-400); RDW Coefficient of Variation 16.1 % (11.5-14.5); RDW Standard Deviation 50.4 fL (36.4-46.3); White Blood Count 6.79 K/ul (4.8-10.8)
[2024-03-23] MEDS: hydrOXYzine HCl 10 MG TAB PO STA (06:11)
[2024-03-23 06:18] LABS: Albumin Level 2.8 gm/dl (3.4-5.0); BUN Creatinine Ratio 24.6 (10-20); Bilirubin,Total 0.3 mg/dl (0.2-1.0); Calcium 8.4 mg/dl (8.6-10.3); Creatinine Clr Calc Pharmacy 52.8 ml/min; Globulin 2.9 gm/dl (2.5-4.0); Magnesium 1.7 mg/dl (1.7-2.4); Potassium 3.3 mmol/L (3.5-5.1); Total Protein 5.7 gm/dl (6.0-8.3)
[2024-03-23 07:27] LABS: Thyroid Stimulating Hormone 0.192 uIu/ml (0.300-4.500)
[2024-03-23 07:37] LABS: Estimated Average Glucose 108 mg/dl; Hemoglobin A1C 5.4 % (4.5-5.6)
[2024-03-23 08:01] LABS: T4 Free Thyroxine 1.03 ng/dl (0.61-1.60)
[2024-03-23] MEDS: MoRPHine SULFATE 4 MG/ML 1 ML CARP\\VIAL IV PRN (09:12)
[2024-03-23] MEDS: POTASSIUM CHLORIDE CRTAB 20 MEQ TABCR PO STA (09:13)
[2024-03-23] MEDS: METOPROLOL TARTRATE 25 MG TAB PO ONE (09:13)
--- NOTE | 2024-03-23 09:36 | Urology Progress Note ---
Date of Service March 23, 2024 Assessment & Plan (1) Obstruction of left ureteropelvic junction (UPJ) due to stone: (2) Hydronephrosis of left kidney: (3) Acute kidney injury: (4) UTI (urinary tract infection): Plan 68 year-old female with an obstructing left UPJ stone and concern for UTI - POD #1 s/p cystoscopy and left ureteral stent placement - Tolerating the stent with minimal bother - Afebrile, normotensive, and mildly tachycardic this morning - Labs - WBC 6.79; Hgb 8.1 (received PRBC transfusion 03/22); ARELY resolved - Creatinine 1.14 today - Urine culture pending - Continues on Ceftriaxone - No further intervention warranted - Continue antibiotics and tailor per culture sensitivities - Continue supportive care. Can consider tamsulosin and prn pyridium for any stent discomfort - Will arrange outpatient follow-up with our service for definitive stone treatment - Urology will sign-off. Please call with any further questions/concerns or changes in patient status. Admission and Anticipated Discharge Date Admission Date: March 22, 2024 Subjective Pt seen at bedside this AM. Awake and resting in bed on arrival. No acute distress. Reports she did not sleep well. Denies f/c/n/v. Tolerating the stent with minimal bother. Reports she is voiding without issues. Some hematuria and dysuria but improved today. Review of Systems Constitutional: as per Subjective / HPI Genitourinary: as per Subjective / HPI Physical Exam Constitutional: + obese; no acute distress Respiratory: no respiratory distress and no labored breathing Musculoskeletal: Head/Neck/Chest: normocephalic Neurologic: awake Psychiatric: Orientation: alert and cooperative Results & Data Vital Signs (Past 12 Hours) Vital Signs Temp Pulse Pulse Resp BP Pulse Ox O2 Del Method 03/23/24 07:10 36.8 C 102 H 18 135/88 96 Nasal Cannula 03/23/24 02:54 37.1 C 115 H 22 140/90 91 Nasal Cannula 03/22/24 23:13 37.0 C 83 20 146/85 H 96 Nasal Cannula 03/22/24 22:00 124 H 03/22/24 21:35 37 C 117 H 18 127/78 97 Room Air O2 Flow Rate 03/23/24 07:10 3 03/23/24 02:54 03/22/24 23:13 03/22/24 22:00 03/22/24 21:35 PG Care Time/CCT Total # of Minutes Spent Total Time Spent with Patient: Total time spent is greater than 50% in coordination of care (as documented) at patient's floor/unit and/or counseling patient: Coding Level of Care Code 55197 SUB INP/OBS CARE 2/35MIN Diagnoses Obstruction of left ureteropelvic junction (UPJ) due to stone N20.1 Hydronephrosis of left kidney N13.30 Acute kidney injury N17.9 UTI (urinary tract infection) N30.01 Hematuria presence: with hematuria Urinary tract infection type: acute cystitis (4) UTI (urinary tract infection) Hematuria presence: with hematuria Urinary tract infection type: acute cystitis Qualified Code(s): N30.01 - Acute cystitis with hematuria
[2024-03-23] MEDS: CYANOCOBALAMIN (B-12) 500 MCG TABLET PO SCH (12:22)
--- NOTE | 2024-03-23 12:36 | Cardiology Progress Note ---
Date of Service March 23, 2024 Assessment & Plan (1) New onset atrial fibrillation: (2) Anemia: (3) History of stroke: (4) Hypertension: (5) Diastolic congestive heart failure: (6) Inadequate anticoagulation: Plan 1. Atrial fibrillation: We believe this to be of relatively recent onset, possibly several months. She is not very symptomatic so maintenance of atrial fibrillation for now with rate control and anticoagulation is probably her best option with possible cardioversion in the future. Her heart rate is a little bit fast but relatively well-controlled now on diltiazem. 2. Anemia: She has iron deficiency anemia, presumably due to blood loss, possibly urinary. Now with a stent in place she may be at less risk of further bleeding. If she is not at significant risk and she should be started on an anticoagulant. I am not done that. 3. Stroke: She has a history of stroke, it is possible these were embolic from atrial fibrillation as I do not believe any other cause was clearly identified, although she does have left internal carotid artery stenosis so this is also a possible cause. She should probably be on platelet bitters and anticoagulants for the long run if possible. 4. Hypertension:. Her blood pressure has been relatively well-controlled on diltiazem. 5. Congestive heart failure: She has a history of congestive heart failure which based on her echocardiogram is presumably diastolic in nature. That is currently not an issue. 6. Anticoagulation: At this point have not added anticoagulation, if it is acceptable to the primary service had recommended having Eliquis 5 mg twice a day to her regimen as well as a platelet inhibitor. She is at significant risk of stroke although she is also at risk of bleeding. A watchman might be a consideration if she cannot tolerate anticoagulation. Admission and Anticipated Discharge Date Admission Date: March 22, 2024 Subjective From the cardiovascular standpoint she is feeling well, she is having some urinary discomfort. She did have some hematuria following her procedure yesterday but reports that today she has not. She does not have a catheter in place. Physical Exam Physical Exam: Constitutional: Alert, cooperative and in no distress. She is resting in bed. HEENT: Unremarkable Neck: No jugular venous distention, carotid pulses are irregular but otherwise normal and equal bilaterally without bruits. Pulmonary: Clear to auscultation bilaterally. Cardiac: Irregular rhythm with no murmur, gallop or rub. Abdomen: Soft, nontender with normal bowel sounds. Extremities: No edema. Neurologic: No focal findings. Skin: No rash, ecchymoses or petechiae. Results & Data Vital Signs (Past 12 Hours) Vital Signs Temp Pulse Resp BP Pulse Ox O2 Del Method O2 Flow Rate 03/23/24 11:31 36.8 C 91 H 18 119/78 91 Room Air 03/23/24 07:10 36.8 C 102 H 18 135/88 96 Nasal Cannula 3 03/23/24 02:54 37.1 C 115 H 22 140/90 91 Nasal Cannula Laboratory Results Cardiac Enzymes 03/23/24 Range/Units 05:31 AST 71 H (13-39) U/L CBC 03/22/24 03/23/24 Range/Units 16:09 05:31 WBC 6.79 (4.8-10.8) K/ul RBC 3.00 L (4.20-5.40) M/uL Hgb 7.6 L 8.1 L (12.0-16.0) g/dl Hct 25.1 L 25.5 L (37.0-47.0) % Plt Count 406 H (130-400) K/uL Neut # (Auto) 5.17 (1.40-6.50) K/uL Lymph # (Auto) 0.99 L (1.20-3.40) K/uL [place] # (Auto) 0.52 (0.11-0.59) K/uL Eos # (Auto) 0.07 (0.00-0.50) K/uL Baso # (Auto) 0.01 (0.00-0.20) K/uL Comprehensive Metabolic Panel 03/23/24 Range/Units 05:31 Sodium 142 (136-145) mmol/L Potassium 3.3 L (3.5-5.1) mmol/L Chloride 110 H (98-107) mmol/L Carbon Dioxide 21 (21-32) mmol/L BUN 28 H (6-23) mg/dl Creatinine 1.14 D (0.6-1.2) mg/dl Glucose 96 (70-99(Fasting)) mg/dl Calcium 8.4 L (8.6-10.3) mg/dl AST 71 H (13-39) U/L ALT 59 H (7-52) U/L Alkaline Phosphatase 67 (34-104) U/L Total Protein 5.7 L (6.0-8.3) gm/dl Albumin 2.8 L (3.4-5.0) gm/dl Intake and Output 03/22/24 03/23/24 03/23/24 22:59 06:59 14:59 Intake Total 455.584 / 2473.584 125 / 2473.584 17.5 / 17.5 Output Total 500 / 1204 403 / 1204 Balance -44.416 / 1269.584 -278 / 1269.584 17.5 / 17.5 Intake: IV 145.584 / 1773.584 125 / 1773.584 17.5 / 17.5 cefTRIAXone SODIUM 2,000 mg In 50 / 50 50 ml @ 100 mls/hr IV Q24H [facility] Rx#:[id number] dilTIAZem HCL 125 mg In 95.584 / 223.584 125 / 223.584 17.5 / 17.5 Dextrose 5% 100 ml @ 15 MG/HR 15 mls/hr IV .Q8H20M [facility] Rx#: [id number] Intake (Blood Product) Amt 310 / 310 Packed Cells, Leukoreduced 310 / 310 Unit [id number] Output: Urine 500 / 1201 400 / 1201 # Bowel Movements 3 / 3 Other: Weight 99.6 kg Weight Measurement Method Built in [facility] Diagnostic Findings Telemetry: 100 atrial fibrillation, heart rate averaging around 100 bpm. PG Care Time/CCT Total # of Minutes Spent Total Time Spent with Patient: Total time spent is greater than 50% in coordination of care (as documented) at patient's floor/unit and/or counseling patient: Coding Level of Care Code 21978 SUB INP/OBS CARE 3/50MIN Diagnoses New onset atrial fibrillation I48.91 Anemia, unspecified type D64.9 Anemia type: unspecified type History of stroke Z86.73 Hypertension, unspecified type I10 Hypertension type: unspecified Chronic diastolic congestive heart failure I50.32 Heart failure chronicity: chronic Inadequate anticoagulation Z51.81; Z79.01 (2) Anemia Anemia type: unspecified type Qualified Code(s): D64.9 - Anemia, unspecified (4) Hypertension Hypertension type: unspecified Qualified Code(s): I10 - Essential (primary) hypertension (5) Diastolic congestive heart failure Heart failure chronicity: chronic Qualified Code(s): I50.32 - Chronic diastolic (congestive) heart failure
[2024-03-23] MEDS: dilTIAZem HCL 180 MG CAPCR PO SCH (13:42)
--- NOTE | 2024-03-23 14:50 | XCELERA ---
[id number] \\[email or web address]_[email or web address]\[id number]
--- NOTE | 2024-03-23 15:36 | Hospitalist Progress Note ---
Date of Service March 23, 2024 Assessment & Plan (1) Obstruction of left ureteropelvic junction (UPJ) due to stone: Plan: 68 y/o admitted with obstructing L UPJ stone, atrial fibrilation with rapid ventricular rate large, >10mm, obstructing kidney stone at UPJ on CT imaging ureteral stent placed 03/22 topamax is contraindicated with kidney stones thus it has been stopped -pyridium and flomax PRN stent pain -follow up with Dr. Goldsmith (2) Atrial fibrillation with RVR: Plan: based on history of palpitations and tachycardias has been ongoing several months -reviewed TTE, normal EF, mild TR -on dilt drip this AM - changed to po -increased metoprolol to 50 mg bid -TSH low at 0.192 but fT4 normal consistent with euthyroid sick - repeat TSH in 6 weeks -at risk for BRANDEE -carotid duplex 50-69% LICA stenosis - outpatient follow up -[id number] = 7. start apixaban if hematuria improved. ideally should be on ASA + DOAC with history of stroke and ASCVD (3) Hydronephrosis of left kidney: Plan: 2nd to large obstructing stone on left see #1 above (4) UTI (urinary tract infection): Plan: complicated, in the setting of obstructing kidney stone multiple organisms on urine culture cont rocephin (5) Sepsis: Plan: 2nd to complicated UTI, resolved (6) Acute kidney injury: Plan: presenting Cr 1.78 2nd to sepsis and obstruction from her left sided kidney stone Cr now 1.14 continues improving -GUILLAUME held (7) Hypokalemia: Plan: replaced with 40 meq po today for 3.3 (8) Anemia: Plan: 2nd to chronic blood loss (hematuria) Fe level undetectable Ferritin not low but likely is 77 due to acute phase reactant B12 level low --> replace Vitamin B12 1000mcg daily Folate wnl Transfused 1 unit RBC 03/22 for symptomatic anemia -oral vs IV iron replacement (9) Hypertension: Plan: metoprolol as above resume GUILLAUME soon (10) CHF (congestive heart failure): Plan: chronic diastolic heart failure - TTE normal EF 55-60%, abnormal septal wall motion, mild LVH, mild TR, normal RV and valves -resume GUILLAUME and b-jonel (11) Diabetes mellitus: Plan: A1c 5.4 cont novolog SSI hold metformin (12) Anxiety and depression: Plan: cont all home meds EXCEPT topamax (relative contraindicated due to kidney stone) (13) Morbid obesity with BMI of 40.0-44.9, adult: Plan: BMI 40 Plan mildly elevated AST, ALT 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 and some effect from rapid AF -resume statin OT rec home vs consider rehab stay She declined PT x 2 today because of pain - changed pain management to scheduled APAP, PRN oxycodone, flomax, PRN pyridium lives with her Admission and Anticipated Discharge Date Admission Date: March 22, 2024 Subjective having some dysuria with voiding related to ureteral stent as well as some suprapubic pain Physical Exam 2 Physical Exam: PHYSICAL EXAMINATION Last 24h vital signs reviewed, see documentation in flowsheet General: comfortable appearing, no distress HEENT: Normocephalic, atraumatic, pupils round and equal, sclerae anicteric, no conjunctival injection, moist mucus membranes Lungs: Normal respiratory effort. Clear to auscultation bilaterally. No RRW Heart: Regular rate and rhythm, no murmurs. No JVD Abdomen: Soft, nontender, nondistended. Bowel sounds present. Extremities: Warm, dry, well-perfused. No extremity edema. Neuro: Alert and oriented x 4, face symmetric, moves 4 extremities well Psych: Normal affect and behavior Results & Data Results & Data Vital Signs (Past 12 Hours) Vital Signs Temp Pulse Resp BP Pulse Ox O2 Del Method O2 Flow Rate 03/23/24 11:31 36.8 C 91 H 18 119/78 91 Room Air 03/23/24 07:10 36.8 C 102 H 18 135/88 96 Nasal Cannula 3 Laboratory Results 03/23/24 05:31 03/23/24 05:31 PG Care Time/CCT Total # of Minutes Spent Total Time Spent with Patient: Total time spent is greater than 50% in coordination of care (as documented) at patient's floor/unit and/or counseling patient: Coding Level of Care Code 80856 SUB INP/OBS CARE 2/35MIN Diagnoses Obstruction of left ureteropelvic junction (UPJ) due to stone N20.1 Atrial fibrillation with RVR I48.91 Hydronephrosis of left kidney N13.30 UTI (urinary tract infection) N30.01 Hematuria presence: with hematuria Urinary tract infection type: acute cystitis Sepsis A41.9 Sepsis acute organ dysfunction status: unspecified Sepsis type: sepsis due to unspecified organism Acute kidney injury N17.9 Hypokalemia E87.6 Anemia, unspecified type D64.9 Anemia type: unspecified type Hypertension, unspecified type I10 Hypertension type: unspecified CHF (congestive heart failure) I50.9 Diabetes mellitus E11.9 Anxiety and depression F41.9; F32.A Morbid obesity with BMI of 40.0-44.9, adult E66.01; Z68.41 (4) UTI (urinary tract infection) Hematuria presence: with hematuria Urinary tract infection type: acute cystitis Qualified Code(s): N30.01 - Acute cystitis with hematuria (5) Sepsis Sepsis acute organ dysfunction status: unspecified Sepsis type: sepsis due to unspecified organism Qualified Code(s): A41.9 - Sepsis, unspecified organism (8) Anemia Anemia type: unspecified type Qualified Code(s): D64.9 - Anemia, unspecified (9) Hypertension Hypertension type: unspecified Qualified Code(s): I10 - Essential (primary) hypertension
[2024-03-23] MEDS: ACETAMINOPHEN 325 MG TAB PO SCH (17:12)
[2024-03-23] MEDS: TAMSULOSIN HCL 0.4 MG CAP PO SCH (17:13)
[2024-03-23] MEDS: METOPROLOL TARTRATE 50 MG TAB PO SCH (20:53)
[2024-03-23] MEDS: PHENAZOPYRIDINE HCL 100 MG TAB PO PRN (20:53)
[2024-03-24] MEDS: oxyCODONE HCL IR 5 MG TAB (IMMEDIATE RELEASE) PO PRN (00:29)
[2024-03-24 06:51] LABS: Basophils # (auto) 0.02 K/uL (0.00-0.20); Basophils % (auto) 0.4 %; Eosinophils # (auto) 0.14 K/uL (0.00-0.50); Eosinophils % (auto) 2.5 %; Hematocrit (blood only) 27.9 % (37.0-47.0); Hemoglobin 8.8 g/dl (12.0-16.0); Immature Granulocytes # (auto) 0.04 K/uL (0.01-0.20); Immature Granulocytes % (auto) 0.7 %; Lymphocytes # (auto) 0.92 K/uL (1.20-3.40); Lymphocytes % (auto) 16.5 %; Mean Corpuscular Hemoglobin 26.7 pg (25.0-34.0); Mean Corpuscular Hgb Conc 31.5 g/dL (32.0-36.0); Mean Corpuscular Volume 84.8 fL (80.0-100.0); Mean Platelet Volume 8.9 fL (9.4-12.4); Monocytes # (auto) 0.51 K/uL (0.11-0.59); Monocytes % (auto) 9.1 %; Neutrophils # (auto) 3.95 K/uL (1.40-6.50); Neutrophils % (auto) 70.8 %; Platelet Count 462 K/uL (130-400); RDW Coefficient of Variation 16.2 % (11.5-14.5); RDW Standard Deviation 50.9 fL (36.4-46.3); Red Blood Count 3.29 M/uL (4.20-5.40); White Blood Count 5.58 K/ul (4.8-10.8)
[2024-03-24 07:17] LABS: Albumin Level 2.9 gm/dl (3.4-5.0); BUN Creatinine Ratio 21.1 (10-20); Bilirubin,Total 0.3 mg/dl (0.2-1.0); Calcium 8.5 mg/dl (8.6-10.3); Creatinine Clr Calc Pharmacy 62.7 ml/min; Globulin 2.9 gm/dl (2.5-4.0); Magnesium 1.6 mg/dl (1.7-2.4); Potassium 3.4 mmol/L (3.5-5.1); Total Protein 5.8 gm/dl (6.0-8.3)
--- NOTE | 2024-03-24 10:45 | Electrocardiogram Report ---
Test Reason : Blood Pressure : */* mmHG Vent. Rate : 94 BPM Atrial Rate : 241 BPM P-R Int : * ms QRS Dur : 74 ms QT Int : 354 ms P-R-T Axes : * 54 93 degrees QTcB Int : 442 ms Atrial fibrillation Abnormal ECG No previous ECGs available Confirmed by Gabriel Lee ([id number]) on 03/24/2024 10:44:47 AM Referred By: REFERRED SELF Confirmed By: Gabriel Lee
[2024-03-24] MEDS: IRON SUCROSE 300 MG in SODIUM CHLORIDE 0.9% 250 ML IV ONE (12:57)
[2024-03-24] MEDS: APIXABAN 5 MG TABLET PO SCH (13:33)
--- NOTE | 2024-03-24 15:33 | Hospitalist Progress Note ---
Date of Service March 24, 2024 Assessment & Plan (1) Obstruction of left ureteropelvic junction (UPJ) due to stone: Plan: 68 y/o admitted with obstructing L UPJ stone, atrial fibrilation with rapid ventricular rate large, >10mm, obstructing kidney stone at UPJ on CT imaging ureteral stent placed 03/22 hematuria resolved presently topamax is contraindicated with kidney stones thus it has been stopped -pyridium and flomax PRN stent pain. improved still needing oxycodone -follow up with Dr. Goldsmith (2) Atrial fibrillation with RVR: Plan: based on history of palpitations and tachycardias has been ongoing several months -reviewed TTE, normal EF, mild TR -rate not controlled on oral diltiazem and metoprolol at current doses. Discuss with systems programmer. for now ordered metoprolol 5 mg IV x 1 -TSH low at 0.192 but fT4 normal consistent with euthyroid sick - repeat TSH in 6 weeks -at risk for BRANDEE -carotid duplex 50-69% LICA stenosis - outpatient follow up -[id number] = 7. ideally should be on ASA + DOAC with history of stroke and ASCVD -discussed risks:benefits of anticoagulation with Amber and her at bedside. Risk of recurrent hematuria so will trial starting apixaban today in hospital. Also discussed risks of GI bleeding and intracranial hemorrhage. (3) Hydronephrosis of left kidney: Plan: 2nd to large obstructing stone on left see #1 above (4) UTI (urinary tract infection): Plan: complicated, in the setting of obstructing kidney stone multiple organisms on urine culture cont rocephin day 3. Probably will do empiric 7d course of antibiotics. (5) Sepsis: Plan: 2nd to complicated UTI, resolved (6) Acute kidney injury: Plan: presenting Cr 1.78 2nd to sepsis and obstruction from her left sided kidney stone Cr now 0.95 -GUILLAUME held (7) Hypokalemia: Plan: 20 meq po today for K 3.4 replace hypomagnesemia with 2 g IV for MAg 1.6 (8) Anemia: Plan: 2nd to chronic blood loss (hematuria) Fe level undetectable Ferritin not low but likely is 77 due to acute phase reactant B12 level low --> replace Vitamin B12 1000mcg daily Folate wnl Transfused 1 unit RBC 03/22 for symptomatic anemia Ordered 300 mg IV venofer Oral replacement after that (9) Hypertension: Plan: metoprolol as above resume GUILLAUME once rate control meds titrated (10) CHF (congestive heart failure): Plan: chronic diastolic heart failure - TTE normal EF 55-60%, abnormal septal wall motion, mild LVH, mild TR, normal RV and valves -resume GUILLAUME and b-jonel (11) Diabetes mellitus: Plan: A1c 5.4 cont novolog SSI hold metformin BG well controlled 03/24 (12) Anxiety and depression: Plan: cont all home meds EXCEPT topamax (relative contraindicated due to kidney stone) (13) Morbid obesity with BMI of 40.0-44.9, adult: Plan: BMI 40 Plan mildly elevated AST, ALT 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 and some effect from rapid AF -LFT improved a bit today -resume statin OT PT rec home vs consider rehab stay may be ok for home with another PT session training for knee scooter lives with her , updated at bedside 03/24 Admission and Anticipated Discharge Date Admission Date: March 22, 2024 Subjective Feeling better today Still some dyspnea General strength improved still with suprapubic and flank pain No longer nauseated, eating meals well Physical Exam 2 Physical Exam: PHYSICAL EXAMINATION Last 24h vital signs reviewed, see documentation in flowsheet General: comfortable appearing, no distress, sitting on EOB HEENT: Normocephalic, atraumatic, pupils round and equal, sclerae anicteric, no conjunctival injection, moist mucus membranes Lungs: Normal respiratory effort. Clear to auscultation bilaterally. No RRW Heart: tachycardic irreg irreg, no murmurs. No JVD Abdomen: Soft, nontender, nondistended. Bowel sounds present. Extremities: Warm, dry, well-perfused. No extremity edema. Neuro: Alert and oriented x 4, face symmetric, moves 4 extremities well Psych: Normal affect and behavior Results & Data Results & Data Vital Signs (Past 12 Hours) Vital Signs Temp Pulse Pulse Resp BP Pulse Ox O2 Del Method 03/24/24 15:02 36.8 C 119 H 16 142/91 H 98 Nasal Cannula 03/24/24 14:02 127 H 03/24/24 13:57 Nasal Cannula 03/24/24 10:56 36.9 C 109 H 14 144/85 H 97 Nasal Cannula 03/24/24 07:45 36.3 C L 89 123/74 98 Room Air 03/24/24 07:00 36.8 C 118 H 14 164/93 H 99 Nasal Cannula O2 Flow Rate 03/24/24 15:02 3 03/24/24 14:02 03/24/24 13:57 3 03/24/24 10:56 3 03/24/24 07:45 03/24/24 07:00 3 Laboratory Results 03/24/24 06:33 03/24/24 06:33 PG Care Time/CCT Total # of Minutes Spent Total Time Spent with Patient: Total time spent is greater than 50% in coordination of care (as documented) at patient's floor/unit and/or counseling patient: Coding Level of Care Code 97886 SUB INP/OBS CARE 2MIN Diagnoses Obstruction of left ureteropelvic junction (UPJ) due to stone N20.1 Atrial fibrillation with RVR I48.91 Hydronephrosis of left kidney N13.30 UTI (urinary tract infection) N30.01 Hematuria presence: with hematuria Urinary tract infection type: acute cystitis Sepsis A41.9 Sepsis acute organ dysfunction status: unspecified Sepsis type: sepsis due to unspecified organism Acute kidney injury N17.9 Hypokalemia E87.6 Anemia, unspecified type D64.9 Anemia type: unspecified type Hypertension, unspecified type I10 Hypertension type: unspecified CHF (congestive heart failure) I50.9 Diabetes mellitus E11.9 Anxiety and depression F41.9; F32.A Morbid obesity with BMI of 40.0-44.9, adult E66.01; Z68.41 (4) UTI (urinary tract infection) Hematuria presence: with hematuria Urinary tract infection type: acute cystitis Qualified Code(s): N30.01 - Acute cystitis with hematuria (5) Sepsis Sepsis acute organ dysfunction status: unspecified Sepsis type: sepsis due to unspecified organism Qualified Code(s): A41.9 - Sepsis, unspecified organism (8) Anemia Anemia type: unspecified type Qualified Code(s): D64.9 - Anemia, unspecified (9) Hypertension Hypertension type: unspecified Qualified Code(s): I10 - Essential (primary) hypertension
[2024-03-24] MEDS: MAGNESIUM SULFATE / D5W 1 GM/100 ML BAG IV SCH (15:50)
[2024-03-24] MEDS: POTASSIUM CHLORIDE CRTAB 20 MEQ TABCR PO STA (15:51)
[2024-03-24] MEDS: METOPROLOL TARTRATE 1 MG/ML VIAL IV STA (15:52)
--- NOTE | 2024-03-24 16:48 | Cardiology Progress Note ---
Date of Service March 24, 2024 Assessment & Plan (1) New onset atrial fibrillation: (2) Anemia: (3) History of stroke: (4) Hypertension: (5) Diastolic congestive heart failure: (6) Inadequate anticoagulation: Plan 1. Atrial fibrillation: We believe this to be of relatively recent onset, possibly several months. She is not very symptomatic so maintenance of atrial fibrillation for now with rate control and anticoagulation is probably her best option with possible cardioversion in the future. Her heart rate remains fast on diltiazem 180 mg twice daily (360 mg daily). Agree with increasing beta- blockade. 2. Anemia: She has iron deficiency anemia, presumably due to blood loss, possibly urinary. Now with a stent in place she may be at less risk of further bleeding. Agree with a trial of anticoagulation. 3. Stroke: She has a history of stroke, it is possible these were embolic from atrial fibrillation as I do not believe any other cause was clearly identified, although she does have left internal carotid artery stenosis so this is also a possible cause. She should probably be on platelet inhibitors and anticoagulants for the long run if possible. 4. Hypertension:. Her blood pressure has also been high, beta-blockade may help with that. 5. Congestive heart failure: She has a history of congestive heart failure which based on her echocardiogram is presumably diastolic in nature. That is currently not an issue. 6. Anticoagulation: At this point she will be starting Eliquis, and continuing with a platelet inhibitor. She is at significant risk of stroke although she is also at risk of bleeding. A watchman might be a consideration if she cannot tolerate anticoagulation. Admission and Anticipated Discharge Date Admission Date: March 22, 2024 Physical Exam Physical Exam: Constitutional: Alert, cooperative and in no distress. She is resting in bed. HEENT: Unremarkable Neck: No jugular venous distention, carotid pulses are irregular but otherwise normal and equal bilaterally without bruits. Pulmonary: Clear to auscultation bilaterally. Cardiac: Irregular rapid rhythm with no murmur, gallop or rub. Abdomen: Soft, nontender with normal bowel sounds. Extremities: No edema. Neurologic: No focal findings. Skin: No rash, ecchymoses or petechiae. Results & Data Vital Signs (Past 12 Hours) Vital Signs Temp Pulse Pulse Resp BP BP Pulse Ox 03/24/24 15:52 125 H 154/93 H 03/24/24 15:02 36.8 C 119 H 16 142/91 H 98 03/24/24 14:02 127 H 03/24/24 13:57 03/24/24 10:56 36.9 C 109 H 14 144/85 H 97 03/24/24 07:45 36.3 C L 89 123/74 98 03/24/24 07:00 36.8 C 118 H 14 164/93 H 99 O2 Del Method O2 Flow Rate 03/24/24 15:52 03/24/24 15:02 Nasal Cannula 3 03/24/24 14:02 03/24/24 13:57 Nasal Cannula 3 03/24/24 10:56 Nasal Cannula 3 03/24/24 07:45 Room Air 03/24/24 07:00 Nasal Cannula 3 Laboratory Results Cardiac Enzymes 03/24/24 Range/Units 06:33 AST 42 H (13-39) U/L CBC 03/24/24 Range/Units 06:33 WBC 5.58 (4.8-10.8) K/ul RBC 3.29 L (4.20-5.40) M/uL Hgb 8.8 L (12.0-16.0) g/dl Hct 27.9 L (37.0-47.0) % Plt Count 462 H (130-400) K/uL Neut # (Auto) 3.95 (1.40-6.50) K/uL Lymph # (Auto) 0.92 L (1.20-3.40) K/uL Alfalfa # (Auto) 0.51 (0.11-0.59) K/uL Eos # (Auto) 0.14 (0.00-0.50) K/uL Baso # (Auto) 0.02 (0.00-0.20) K/uL Comprehensive Metabolic Panel 03/24/24 Range/Units 06:33 Sodium 145 (136-145) mmol/L Potassium 3.4 L (3.5-5.1) mmol/L Chloride 112 H (98-107) mmol/L Carbon Dioxide 24 (21-32) mmol/L BUN 20 (6-23) mg/dl Creatinine 0.95 (0.6-1.2) mg/dl Glucose 107 H (70-99(Fasting)) mg/dl Calcium 8.5 L (8.6-10.3) mg/dl AST 42 H (13-39) U/L ALT 63 H (7-52) U/L Alkaline Phosphatase 66 (34-104) U/L Total Protein 5.8 L (6.0-8.3) gm/dl Albumin 2.9 L (3.4-5.0) gm/dl Intake and Output 03/24/24 03/24/24 03/24/24 06:59 14:59 22:59 Intake Total 50 / 753.75 265 / 845 580 / 845 Output Total 400 / 501 853 / 853 Balance -350 / 252.75 265 / -8 -273 / -8 Intake: IV 50 / 163.75 265 / 265 Iron Sucrose 300 mg In Sodium 265 / 265 Chloride 0.9% 250 ml @ 176.667 mls/hr IV TODAY ONE Rx#: [id number] cefTRIAXone SODIUM 2,000 mg In 50 / 50 50 ml @ 100 mls/hr IV Q24H [facility] Rx#:[id number] Oral 580 / 580 Output: Urine 400 / 500 850 / 850 # Bowel Movements 3 / 3 Other: # Unmeasured Voids 2 Weight 97.7 kg Weight Measurement Method Built [facility] Diagnostic Findings Telemetry: Atrial fibrillation with a rapid heart rate, rate averaging around 110 bpm. PG Care Time/CCT Total # of Minutes Spent Total Time Spent with Patient: Total time spent is greater than 50% in coordination of care (as documented) at patient's floor/unit and/or counseling patient: Coding Level of Care Code 05805 SUB INP/OBS CARE 2/35MIN Diagnoses New onset atrial fibrillation I48.91 Anemia, unspecified type D64.9 Anemia type: unspecified type History of stroke Z86.73 Hypertension, unspecified type I10 Hypertension type: unspecified Chronic diastolic congestive heart failure I50.32 Heart failure chronicity: chronic Inadequate anticoagulation Z51.81; Z79.01 (2) Anemia Anemia type: unspecified type Qualified Code(s): D64.9 - Anemia, unspecified (4) Hypertension Hypertension type: unspecified Qualified Code(s): I10 - Essential (primary) hypertension (5) Diastolic congestive heart failure Heart failure chronicity: chronic Qualified Code(s): I50.32 - Chronic diastolic (congestive) heart failure
[2024-03-24] MEDS: METOPROLOL TARTRATE 50 MG TAB PO SCH (17:44)
[2024-03-24] MEDS: NYSTATIN POWDER 15GM BTL EXT PRN (21:32)
[2024-03-25 06:40] LABS: Hematocrit (blood only) 27.3 % (37.0-47.0); Hemoglobin 8.3 g/dl (12.0-16.0); Mean Corpuscular Hemoglobin 26.1 pg (25.0-34.0); Mean Corpuscular Hgb Conc 30.4 g/dL (32.0-36.0); Mean Corpuscular Volume 85.8 fL (80.0-100.0); Mean Platelet Volume 8.9 fL (9.4-12.4); Nucleated RBC # (auto) 0.03 K/uL (0.00-0.12); Nucleated RBC % (auto) 0.4 %; Platelet Count 469 K/uL (130-400); RDW Coefficient of Variation 16.4 % (11.5-14.5); RDW Standard Deviation 52.4 fL (36.4-46.3); Red Blood Count 3.18 M/uL (4.20-5.40); White Blood Count 6.82 K/ul (4.8-10.8)
[2024-03-25 06:53] LABS: BUN Creatinine Ratio 18.5 (10-20); Calcium 8.5 mg/dl (8.6-10.3); Creatinine Clr Calc Pharmacy 64.7 ml/min; Potassium 3.1 mmol/L (3.5-5.1)
[2024-03-25] MEDS: POTASSIUM CHLORIDE CRTAB 20 MEQ TABCR PO STA (09:45)
--- NOTE | 2024-03-25 12:15 | Cardiology Progress Note ---
Date of Service March 25, 2024 Assessment & Plan (1) New onset atrial fibrillation: (2) Hypertension: (3) Hypokalemia: (4) Hypomagnesemia: (5) History of stroke: (6) Anemia: Plan Recent onset atrial fibrillation of undetermined duration. Rhythm returned to sinus on diltiazem 180 mg twice daily, would continue this as outpatient (could consolidate to diltiazem CD3 160 mg daily). Continue anticoagulation with apixaban 5 mg twice daily. Ensure that potassium and magnesium are adequately maintained, may require temporary electrolyte supplements upon discharge. Okay for discharge from cardiac standpoint. Will arrange for follow-up with Dr. Aldana in the next 2 to 4 weeks. Admission and Anticipated Discharge Date Admission Date: March 22, 2024 Subjective Rhythm reverted to sinus just before midnight last night. No somatic complaints, denies chest pain, dyspnea, palpitations, or lightheadedness. Physical Exam Physical Exam: No distress. BP mildly hypertensive. Pulse 76 bpm and regular. Skin: no ecchymoses or generalized lesions. HEENT: unremarkable. Neck: JVP at the clavicle at 90 degrees, no carotid bruits. Lungs: clear. Cardiac: regular rhythm, normal S1-2, no murmur. Abdomen: benign. Extremities: no edema, pulses intact. Neurologic: normal affect and conversation, nonfocal. Results & Data Vital Signs (Past 12 Hours) Vital Signs Temp Pulse Resp BP Pulse Ox O2 Del Method O2 Flow Rate 03/25/24 10:40 97.7 F 77 18 161/80 H 95 Room Air 03/25/24 07:17 97.2 F L 70 19 149/83 H 98 Nasal Cannula 03/25/24 03:15 98.2 F 69 21 144/83 H 99 Nasal Cannula 2 PG Care Time/CCT Total # of Minutes Spent Total Time Spent with Patient: Total time spent is greater than 50% in coordination of care (as documented) at patient's floor/unit and/or counseling patient: Coding Level of Care Code 97296 SUB INP/OBS CARE 3/50MIN Diagnoses New onset atrial fibrillation I48.91 Hypertension, unspecified type I10 Hypertension type: unspecified Hypokalemia E87.6 Hypomagnesemia E83.42 History of stroke Z86.73 Anemia, unspecified type D64.9 Anemia type: unspecified type (2) Hypertension Hypertension type: unspecified Qualified Code(s): I10 - Essential (primary) hypertension (6) Anemia Anemia type: unspecified type Qualified Code(s): D64.9 - Anemia, unspecified
[2024-03-25] MEDS: oxyBUTYnin chloride 5 MG TAB PO SCH (14:35)
[2024-03-25] MEDS: ADVANCED PROBIOTIC 625 MG CAPSULE PO SCH (15:15)
--- NOTE | 2024-03-25 15:38 | Hospitalist Progress Note ---
Date of Service March 25, 2024 Assessment & Plan (1) Obstruction of left ureteropelvic junction (UPJ) due to stone: Plan: 68 y/o admitted with obstructing L UPJ stone, atrial fibrilation with rapid ventricular rate large, >10mm, obstructing kidney stone at [facility] on CT imaging ureteral stent placed 03/22 hematuria resolved presently topamax is contraindicated with kidney stones thus it has been stopped -pyridium and flomax PRN stent pain. improved still needing oxycodone. added oxybutynin -follow up with Dr. Goldsmith (2) Atrial fibrillation with RVR: Plan: based on history of palpitations and tachycardias has been ongoing several months -reviewed TTE, normal EF, mild TR -TSH low at 0.192 but fT4 normal consistent with euthyroid sick - repeat TSH in 6 weeks -at risk for BRANDEE -carotid duplex 50-69% LICA stenosis - outpatient follow up -[id number] = 7. ideally should be on ASA + DOAC with history of stroke and ASCVD -started apixaban evening of 03/24, no hematuria thus far -masonry installer recommended continuing diltiazem for discharge (also is on metoprolol) (3) Hydronephrosis of left kidney: Plan: 2nd to large obstructing stone on left see #1 above (4) UTI (urinary tract infection): Plan: complicated, in the setting of obstructing kidney stone multiple organisms on urine culture antibiotics day 4/7 change ceftriaxone to cefuroxime (5) Sepsis: Plan: 2nd to complicated UTI, resolved (6) Acute kidney injury: Plan: presenting Cr 1.78 2nd to sepsis and obstruction from her left sided kidney stone Cr now 0.95 -GUILLAUME held (7) Hypokalemia: Plan: 40 meq po today for K 3.1, start daily replacement 20 meq replace hypomagnesemia with 2 g IV for MAg 1.6. having abx diarrhea hold off on oral mag. started probiotic (8) Anemia: Plan: 2nd to chronic blood loss (hematuria) Fe level undetectable Ferritin not low but likely is 77 due to acute phase reactant B12 level low --> replace Vitamin B12 1000mcg daily Folate wnl Transfused 1 unit RBC 03/22 for symptomatic anemia 300 mg IV venofer 03/24 Oral replacement q48h after that (9) Hypertension: Plan: metoprolo, diltiazem as above resume GUILLAUME once rate control meds titrated (10) CHF (congestive heart failure): Plan: chronic diastolic heart failure - TTE normal EF 55-60%, abnormal septal wall motion, mild LVH, mild TR, normal RV and valves -continue b-jonel and antihypertensives (11) Diabetes mellitus: Plan: A1c 5.4 cont novolog SSI hold metformin BG well controlled 03/25 (12) Anxiety and depression: Plan: cont all home meds EXCEPT topamax (relative contraindicated due to kidney stone) (13) Morbid obesity with BMI of 40.0-44.9, adult: Plan: BMI 40 Plan mildly elevated AST, ALT 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 and some effect from rapid AF -resumed statin PT OT recommend rehab stay - discussed with Amber and pet care associate Admission and Anticipated Discharge Date Admission Date: March 22, 2024 Subjective Converted to NSR last night Feels better, lower abdominal crampy pain with associated L flank pain persists though overall improved No hematuria Physical Exam 2 Physical Exam: PHYSICAL EXAMINATION Last 24h vital signs reviewed, see documentation in flowsheet General: sitting up in bed awake alert HEENT: Normocephalic, atraumatic, pupils round and equal, sclerae anicteric, no conjunctival injection, moist mucus membranes Lungs: Normal respiratory effort. Clear to auscultation bilaterally. No RRW Heart: reg, no murmurs. No JVD Abdomen: Soft, nontender, nondistended. Bowel sounds present. Extremities: Warm, dry, well-perfused. No extremity edema. Neuro: Alert and oriented x 4, face symmetric, moves 4 extremities well Psych: Normal affect and behavior Results & Data Results & Data Vital Signs (Past 12 Hours) Vital Signs Temp Pulse Pulse Resp BP Pulse Ox O2 Del Method 03/25/24 15:08 36.3 C L 76 17 161/85 H 98 Room Air 03/25/24 12:09 72 03/25/24 10:40 36.5 C 77 18 161/80 H 95 Room Air 03/25/24 07:17 36.2 C L 70 19 149/83 H 98 Nasal Cannula Laboratory Results 03/25/24 06:15 03/25/24 06:15 PG Care Time/CCT Total # of Minutes Spent Total Time Spent with Patient: Total time spent is greater than 50% in coordination of care (as documented) at patient's floor/unit and/or counseling patient: Coding Level of Care Code 23031 SUB INP/OBS CARE MIN Diagnoses Obstruction of left ureteropelvic junction (UPJ) due to stone N20.1 Atrial fibrillation with RVR I48.91 Hydronephrosis of left kidney N13.30 UTI (urinary tract infection) N30.01 Hematuria presence: with hematuria Urinary tract infection type: acute cystitis Sepsis A41.9 Sepsis acute organ dysfunction status: unspecified Sepsis type: sepsis due to unspecified organism Acute kidney injury N17.9 Hypokalemia E87.6 Anemia, unspecified type D64.9 Anemia type: unspecified type Hypertension, unspecified type I10 Hypertension type: unspecified CHF (congestive heart failure) I50.9 Diabetes mellitus E11.9 Anxiety and depression F41.9; F32.A Morbid obesity with BMI of 40.0-44.9, adult E66.01; Z68.41 (4) UTI (urinary tract infection) Hematuria presence: with hematuria Urinary tract infection type: acute cystitis Qualified Code(s): N30.01 - Acute cystitis with hematuria (5) Sepsis Sepsis acute organ dysfunction status: unspecified Sepsis type: sepsis due to unspecified organism Qualified Code(s): A41.9 - Sepsis, unspecified organism (8) Anemia Anemia type: unspecified type Qualified Code(s): D64.9 - Anemia, unspecified (9) Hypertension Hypertension type: unspecified Qualified Code(s): I10 - Essential (primary) hypertension
[2024-03-25] MEDS ORDERED: FAMOTIDINE 20 MG TAB PO PRN (17:11)
[2024-03-25] MEDS: ALUMINUM/MAGNESIUM SUSP 30 ML UDC PO PRN (17:42)
[2024-03-26] MEDS: CYCLOBENZAPRINE HCL 5 MG TAB PO PRN (00:30)
[2024-03-26] MEDS: KETOCONAZOLE 2% CR 15 GM TUBE EXT PRN (08:20)
[2024-03-26] MEDS: MENTHOL-ZINC OXIDE 360 APPLN/120 GM TUBE EXT PRN (08:20)
[2024-03-26] MEDS: POTASSIUM CHLORIDE CRTAB 20 MEQ TABCR PO SCH (08:21)
[2024-03-26] MEDS: cefUROXime axetil 250 MG TABLET PO SCH (09:22)
[2024-03-26] MEDS: dilTIAZem HCl 5 MG/ML 5 ML VIAL IV STA ×2 (11:17→17:54)
[2024-03-26 11:48] LABS: BUN Creatinine Ratio 20.7 (10-20); Calcium 8.9 mg/dl (8.6-10.3); Creatinine Clr Calc Pharmacy 70.6 ml/min; Magnesium 1.6 mg/dl (1.7-2.4); Potassium 3.6 mmol/L (3.5-5.1)
[2024-03-26] MEDS: dilTIAZem HCl 60 MG TAB PO ONE (12:04)
[2024-03-26] MEDS: METOPROLOL TARTRATE 50 MG TAB PO SCH (12:05)
[2024-03-26] MEDS: FUROSEMIDE INJ 20 MG/2 ML VIAL IV ONE (13:11)
--- NOTE | 2024-03-26 13:13 | Cardiology Progress Note ---
Date of Service March 26, 2024 Assessment & Plan (1) New onset atrial fibrillation: (2) Hypomagnesemia: (3) Hypertension: Plan Recurrent atrial fibrillation, possibly due to persistent hypomagnesemia (potassium reasonably corrected). Recommend magnesium repletion IV with addition of oral supplement. Additional dose of diltiazem given now and metoprolol dose increased to 50 mg every 6 hours. Continue anticoagulation with apixaban 5 mg twice daily. May need to consider amiodarone for rate/rhythm control, but would first see how she responds to correction of hypomagnesemia. Dr. Segura will be rounding for the weekend, will ask him to check in on her. I did request that our scheduling set her up for follow-up with Dr. Aldana in 2 to 4 weeks after discharge. Admission and Anticipated Discharge Date Admission Date: March 22, 2024 Subjective Sinus throughout the day yesterday, but recurrent atrial fibrillation beginning 8 AM this morning. She feels tachypalpitations at times but denies any other symptoms. No complaints currently. Telemetry shows atrial fibrillation with ventricular rate in the 120 bpm range (as high as 170 bpm at times). Physical Exam Physical Exam: No distress. BP mildly hypertensive. Pulse 115 bpm and irregular. Skin: no ecchymoses or generalized lesions. HEENT: unremarkable. Neck: JVP at the clavicle at 90 degrees, no carotid bruits. Lungs: clear. Cardiac: Irregular/tachycardic rhythm, normal S1-2, no murmur. Abdomen: benign. Extremities: no edema, pulses intact. Neurologic: normal affect and conversation, nonfocal. Results & Data Laboratory Results Potassium 3.6. Magnesium 1.6. BUN 17, creatinine 0.82. PG Care Time/CCT Total # of Minutes Spent Total Time Spent with Patient: Total time spent is greater than 50% in coordination of care (as documented) at patient's floor/unit and/or counseling patient: Coding Level of Care Code 95144 SUB INP/OBS CARE 3/50MIN Diagnoses New onset atrial fibrillation I48.91 Hypomagnesemia E83.42 Hypertension, unspecified type I10 Hypertension type: unspecified (3) Hypertension Hypertension type: unspecified Qualified Code(s): I10 - Essential (primary) hypertension
[2024-03-26] MEDS: POTASSIUM CHLORIDE CRTAB 20 MEQ TABCR PO ONE (13:52)
[2024-03-26] MEDS: MAGNESIUM SULFATE / D5W 1 GM/100 ML BAG IV ONE (13:53)
--- NOTE | 2024-03-26 15:31 | CT Scan Report ---
CT head/brain wo con CLINICAL HISTORY: 68 years-old Female with hit head, anticoagulated. Acute head trauma TECHNIQUE: Multiple axial CT images of the head were obtained without contrast. A dose lowering tech nique was utilized adhering to the principles of ALARA. CT DOSE: 625.8 mGy.cm COMPARISON: None. FINDINGS: No acute intracranial hemorrhage, midline shift, intracranial mass, hydrocephalus, territorial ischem ia or abnormal extra-axial collection. Involutional changes with probable chronic microvascular ische francisco disease. Cerebrovascular calcifications. The calvarium is intact. The paranasal sinuses, mastoid air cells, and middle ear cavities are clear . IMPRESSION: No acute intracranial abnormality or calvarial fracture. ACT 112: Negative or not required by law. The above report was generated using voice recognition software. It may contain grammatical, syntax o r spelling errors. Electronically signed by: Jayden Hwang M.D. 03/26/2024 3:30 PM
--- NOTE | 2024-03-26 16:49 | Hospitalist Progress Note ---
Date of Service March 26, 2024 Assessment & Plan (1) Obstruction of left ureteropelvic junction (UPJ) due to stone: Plan: 68 y/o admitted with obstructing L UPJ stone, atrial fibrilation with rapid ventricular rate large, >10mm, obstructing kidney stone at [facility] on CT imaging ureteral stent placed 03/22 hematuria resolved presently topamax is contraindicated with kidney stones thus it has been stopped -pyridium and flomax PRN stent pain. improved still needing oxycodone. added oxybutynin with improvement in symptomscontinue this -follow up with Dr. Goldsmith (2) Atrial fibrillation with RVR: Plan: based on history of palpitations and tachycardias has been ongoing several months -TTE, normal EF, mild TR -TSH low at 0.192 but fT4 normal consistent with euthyroid sick - repeat TSH in 6 weeks -at risk for BRANDEE -carotid duplex 50-69% LICA stenosis - outpatient follow up -[id number] = 7. ideally should be on ASA + DOAC with history of stroke and ASCVD -started apixaban evening of 03/24, no hematuria thus far - continue this - went back into rapid A-fib a.m. of 03/26, despite oral metoprolol and oral diltiazem at significant doses. maintaining her blood pressure well Discussed with bedside nursing staff and charge nurse, ordered diltiazem 10 mg IV x 1 and transferred back to PCU. Discussed with Dr. Turcios to increased both the metoprolol and diltiazem. Rate control significantly improved by this evening now in 90s - may be getting volume overload ordered Lasix 20 mg IV x 1 and resume oral Lasix 20 mg daily starting tomorrow (3) Hydronephrosis of left kidney: Plan: 2nd to large obstructing stone on left see #1 above (4) UTI (urinary tract infection): Plan: complicated, in the setting of obstructing kidney stone multiple organisms on urine culture antibiotics day /7-10 stopped ceftriaxone and started cefuroxime discussed renal dosing with pharmacist (5) Sepsis: Plan: 2nd to complicated UTI, resolved (6) Acute kidney injury: Plan: presenting Cr 1.78 2nd to sepsis and obstruction from her left sided kidney stone creatinine remains normal today -GUILLAUME held (7) Hypokalemia: Plan: continue 20 mEq daily standing replacement, add second 20 mill equivalent dose today because of Lasix mild hypomagnesemiaordered 2 g IV mag to help with arrhythmia, recheck BMP and mag in a.m. (8) Anemia: Plan: 2nd to chronic blood loss (hematuria) Fe level undetectable Ferritin not low but likely is 77 due to acute phase reactant B12 level low --> replace Vitamin B12 1000mcg daily Folate wnl Transfused 1 unit RBC 03/22 for symptomatic anemia 300 mg IV venofer 03/24 Oral replacement q48h after that (9) Hypertension: Plan: metoprolo, diltiazem as above resume GUILLAUME once rate control meds titrated (10) CHF (congestive heart failure): Plan: chronic diastolic heart failure - TTE normal EF 55-60%, abnormal septal wall motion, mild LVH, mild TR, normal RV and valves -continue b-jonel and antihypertensives - restarted Lasix because of increasing lower extremity edema (11) Diabetes mellitus: Plan: A1c 5.4 cont novolog SSI hold metformin excellent glycemic control on 03/26 (12) Anxiety and depression: Plan: cont all home meds EXCEPT topamax (relative contraindicated due to kidney stone) (13) Morbid obesity with BMI of 40.0-44.9, adult: Plan: BMI 40 Plan mildly elevated AST, ALT 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 and some effect from rapid AF -resumed statin PT OT recommend rehab stay - clinical care manager has made SNF referrals, discussed with care coordination Admission and Anticipated Discharge Date Admission Date: March 22, 2024 Arabella Clark is having rapid A-fib this morning, heart rate in the [id number]. She is relatively asymptomatic from this not lightheaded no chest pain does feel mildly short of breath. Bladder spasm symptoms seem improved after addition of oxybutynin though still present. legs are getting more edematous, she usually uses furosemide as needed at home In the afternoon nursing staff was boosting her upward in bed and she used her legs to help boost but overshot and hit her head on the headboard Physical Exam 2 Physical Exam: PHYSICAL EXAMINATION Last 24h vital signs reviewed, see documentation in flowsheet General: lying flat on bed awake and alert HEENT: Normocephalic, atraumatic, pupils round and equal, sclerae anicteric, no conjunctival injection, moist mucus membranes Lungs: Normal respiratory effort. Clear to auscultation bilaterally. No RRW Heart: tachycardic and irregularly irregular, no murmurs. No JVD Abdomen: Soft, nontender, nondistended. Bowel sounds present. Extremities: Warm, dry, well-perfused. 1+ extremity edema. Neuro: Alert and oriented x 4, face symmetric, moves 4 extremities well Psych: Normal affect and behavior Results & Data Results & Data Vital Signs (Past 12 Hours) Vital Signs Temp Pulse Pulse Resp BP Pulse Ox O2 Del Method 03/26/24 15:05 93 H 18 121/73 98 Nasal Cannula 03/26/24 14:42 104 H 03/26/24 11:21 115 H 20 03/26/24 11:13 36.6 C 104 H 16 150/100 H 93 Room Air 03/26/24 10:54 115 H 03/26/24 08:15 Nasal Cannula 03/26/24 08:00 36.7 C 77 18 162/76 H 98 Nasal Cannula 03/26/24 06:53 68 O2 Flow Rate 03/26/24 15:05 2 03/26/24 14:42 03/26/24 11:21 03/26/24 11:13 03/26/24 10:54 03/26/24 08:15 2 03/26/24 08:00 2 03/26/24 06:53 Laboratory Results 03/25/24 06:15 03/26/24 11:11 PG Care Time/CCT Total # of Minutes Spent Total Time Spent with Patient: I personally spent: 50 minutes today on clinical care activities including: reviewing chart notes and vital signs reviewing labs discussion with hop strainer and bedside nurses discussion with clinical care manager examining and counseling the patient writing orders, transfer orders documentation Coding Level of Care Code 25838 SUB INP/OBS CARE 3/50MIN Diagnoses Obstruction of left ureteropelvic junction (UPJ) due to stone N20.1 Atrial fibrillation with RVR I48.91 Hydronephrosis of left kidney N13.30 UTI (urinary tract infection) N30.01 Hematuria presence: with hematuria Urinary tract infection type: acute cystitis Sepsis A41.9 Sepsis acute organ dysfunction status: unspecified Sepsis type: sepsis due to unspecified organism Acute kidney injury N17.9 Hypokalemia E87.6 Anemia, unspecified type D64.9 Anemia type: unspecified type Hypertension, unspecified type I10 Hypertension type: unspecified CHF (congestive heart failure) I50.9 Diabetes mellitus E11.9 Anxiety and depression F41.9; F32.A Morbid obesity with BMI of 40.0-44.9, adult E66.01; Z68.41 (4) UTI (urinary tract infection) Hematuria presence: with hematuria Urinary tract infection type: acute cystitis Qualified Code(s): N30.01 - Acute cystitis with hematuria (5) Sepsis Sepsis acute organ dysfunction status: unspecified Sepsis type: sepsis due to unspecified organism Qualified Code(s): A41.9 - Sepsis, unspecified organism (8) Anemia Anemia type: unspecified type Qualified Code(s): D64.9 - Anemia, unspecified (9) Hypertension Hypertension type: unspecified Qualified Code(s): I10 - Essential (primary) hypertension
--- NOTE | 2024-03-26 18:19 | XRay Report ---
INDICATION: Chest pain. TECHNIQUE: Frontal radiograph of the chest. COMPARISON: 03/21/2024. FINDINGS: Cardiopulmonary. Mild pulmonary vascular congestion. No infiltrate, pleural effusion or pneumothorax. No acute osseous abnormality evident. IMPRESSION: Mild pulmonary vascular congestion. Electronically signed by Kunal Arthur 03-26-2024 6:19 PM
--- NOTE | 2024-03-26 18:50 | Communication Note ---
Date of Service: March 26, 2024 RN contacted me Amber barbosa feels poorly and short of breath. HR still elevated in 130s Obtained CXR - some pulmonary edema -dilt 10 mg IV x 1, until increased dose of oral metoprolol takes effect (next dose due soon) -lasix 40 mg IV x 1
[2024-03-26] MEDS: FUROSEMIDE 40 MG/4 ML VIAL IV ONE (19:48)
[2024-03-26 20:27] LABS: Component 2 DNR; Source URFIL
[2024-03-27 06:12] LABS: BUN Creatinine Ratio 21.2 (10-20); Creatinine Clr Calc Pharmacy 55.7 ml/min; Magnesium 1.7 mg/dl (1.7-2.4); Potassium 3.3 mmol/L (3.5-5.1)
--- NOTE | 2024-03-27 07:51 | Hospitalist Progress Note ---
Date of Service March 27, 2024 Assessment & Plan (1) Obstruction of left ureteropelvic junction (UPJ) due to stone: Plan: 68 y/o admitted with obstructing L UPJ stone, atrial fibrilation with rapid ventricular rate large, >10mm, obstructing kidney stone at [facility]J on CT imaging ureteral stent placed 03/22 hematuria resolved presently topamax is contraindicated with kidney stones thus it has been stopped -pyridium and flomax PRN stent pain. improved still needing oxycodone. added oxybutynin -follow up with Dr. Goldsmith (2) Atrial fibrillation with RVR: Plan: based on history of palpitations and tachycardias has been ongoing several months -reviewed TTE, normal EF, mild TR -TSH low at 0.192 but fT4 normal consistent with euthyroid sick - repeat TSH in 6 weeks -at risk for BRANDEE -carotid duplex 50-69% LICA stenosis - outpatient follow up -[id number] = 7. ideally should be on ASA + DOAC with history of stroke and ASCVD -started apixaban evening of 03/24, no hematuria thus far -metoprolol and diltiazem increased 03/26 for rapid afib, needed a few doses IV diltiazem, electrolytes replaced and diuresed -in NSR this morning. discussed with Dr. Segura, started dronedarone for rhythm control, stopped diltiazem, continue metoprolol -monitor serial EKG for QTC and reduce dose of trazodone Acute on chronic diastolic heart failure -diuresed 03/26 with 20 mg lasix IV x 2 doses -resumed lasix 20 mg po daily today -resumed lisinopril -replace mild hypokalemia K 3.3 - increase scheduled potassium to 40 meq daily -replace borderline / low normal magnesium of 1.7 with 1g IV -AM BMP (3) Hydronephrosis of left kidney: Plan: 2nd to large obstructing stone on left see #1 above (4) UTI (urinary tract infection): Plan: complicated, in the setting of obstructing kidney stone multiple organisms on urine culture initially treated with ceftriaxone antibiotics start date 03/22 - continue cefuroxime total 7-10 days (5) Sepsis: Plan: 2nd to complicated UTI, resolved (6) Acute kidney injury: Plan: presenting Cr 1.78 2nd to sepsis and obstruction from her left sided kidney stone Cr now 1 - possibly at baseline, if so, CKD-3 -GUILLAUME resumed (7) Hypokalemia: Plan: replacing, see above (8) Anemia: Plan: 2nd to chronic blood loss (hematuria) Fe level undetectable Ferritin not low but likely is 77 due to acute phase reactant B12 level low --> replace Vitamin B12 1000mcg daily Folate wnl Transfused 1 unit RBC 03/22 for symptomatic anemia 300 mg IV venofer 03/24 Oral replacement q48h ordered (9) Hypertension: Plan: metoprolol, diltiazem as above resume GUILLAUME once rate control meds titrated BP better after diuresis (10) CHF (congestive heart failure): Plan: chronic diastolic heart failure present on admission, acute on chronic diastolic HF developed 03/26- TTE normal EF 55-60%, abnormal septal wall motion, mild LVH, mild TR, normal RV and valves -see above (11) Diabetes mellitus: Plan: A1c 5.4 cont novolog SSI hold metformin BG well controlled 03/26 (12) Anxiety and depression: Plan: cont all home meds EXCEPT topamax (relative contraindicated due to kidney stone) (13) Morbid obesity with BMI of 40.0-44.9, adult: Plan: BMI 40 Plan mildly elevated AST, ALT 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 and some effect from rapid AF -resumed statin PT OT recommend rehab stay - SNF referrals made Admission and Anticipated Discharge Date Admission Date: March 22, 2024 Subjective Converted to NSR at 4am Prior to that afib 115 bpm in the night Diuresed -2L and weight down 4kg she does feel better today, no longer short of breath no chest pain hasn't been OOB much due to heart rate leg edema much improved continues to have bladder pain and L flank pain Physical Exam 2 Physical Exam: PHYSICAL EXAMINATION Last 24h vital signs reviewed, see documentation in flowsheet General: awake alert in bed lying flat HEENT: Normocephalic, atraumatic, pupils round and equal, sclerae anicteric, no conjunctival injection, moist mucus membranes Lungs: Normal respiratory effort. Clear to auscultation bilaterally. No RRW Heart: reg, no murmurs. No JVD Abdomen: Soft, nontender, nondistended. Bowel sounds present. Extremities: Warm, dry, well-perfused. mild extremity edema - much improved. Neuro: Alert and oriented x 4, face symmetric, moves 4 extremities well Psych: Normal affect and behavior Results & Data Results & Data Vital Signs (Past 12 Hours) Vital Signs Temp Pulse Pulse Resp BP Pulse Ox O2 Del Method 03/27/24 02:51 36.6 C 102 H 16 135/87 97 Nasal Cannula 03/26/24 23:01 36.7 C 118 H 18 123/78 96 Nasal Cannula 03/26/24 22:00 114 H 03/26/24 21:16 118 H 150/97 H 03/26/24 20:00 Room Air O2 Flow Rate 03/27/24 02:51 2.0 03/26/24 23:01 2.0 03/26/24 22:00 03/26/24 21:16 03/26/24 20:00 Laboratory Results 03/25/24 06:15 03/27/24 05:25 PG Care Time/CCT Total # of Minutes Spent Total Time Spent with Patient: Total time spent is greater than 50% in coordination of care (as documented) at patient's floor/unit and/or counseling patient: Coding Level of Care Code 32921 SUB INP/OBS CARE 2/35MIN Diagnoses Obstruction of left ureteropelvic junction (UPJ) due to stone N20.1 Atrial fibrillation with RVR I48.91 Hydronephrosis of left kidney N13.30 UTI (urinary tract infection) N30.01 Hematuria presence: with hematuria Urinary tract infection type: acute cystitis Sepsis A41.9 Sepsis acute organ dysfunction status: unspecified Sepsis type: sepsis due to unspecified organism Acute kidney injury N17.9 Hypokalemia E87.6 Anemia, unspecified type D64.9 Anemia type: unspecified type Hypertension, unspecified type I10 Hypertension type: unspecified CHF (congestive heart failure) I50.9 Diabetes mellitus E11.9 Anxiety and depression F41.9; F32.A Morbid obesity with BMI of 40.0-44.9, adult E66.01; Z68.41 (4) UTI (urinary tract infection) Hematuria presence: with hematuria Urinary tract infection type: acute cystitis Qualified Code(s): N30.01 - Acute cystitis with hematuria (5) Sepsis Sepsis acute organ dysfunction status: unspecified Sepsis type: sepsis due to unspecified organism Qualified Code(s): A41.9 - Sepsis, unspecified organism (8) Anemia Anemia type: unspecified type Qualified Code(s): D64.9 - Anemia, unspecified (9) Hypertension Hypertension type: unspecified Qualified Code(s): I10 - Essential (primary) hypertension
[2024-03-27] MEDS: POTASSIUM CHLORIDE CRTAB 20 MEQ TABCR PO SCH (08:09)
[2024-03-27] MEDS: MAGNESIUM SULFATE / D5W 1 GM/100 ML BAG IV ONE (08:09)
[2024-03-27] MEDS: FUROSEMIDE 20 MG TAB PO SCH (08:19)
--- NOTE | 2024-03-27 09:49 | Cardiology Progress Note ---
Date of Service March 27, 2024 Assessment & Plan (1) Paroxysmal atrial fibrillation: (2) Hypertension: (3) Anticoagulant long-term use: (4) Anemia: Plan ASSESSMENT/PLAN: 1. Paroxysmal atrial fibrillation: Symptomatic and tends to be with elevated heart rate. Given that she has had recurrent episodes while hospitalized, recommend antiarrhythmic therapy. Given her younger age, we will try to avoid amiodarone. Given her risk factors for CAD, we will try to avoid Class Ic meds. Start Multaq 400 mg twice daily. Discontinue diltiazem. Reduce metoprolol to 50 mg twice daily. Continue anticoagulation for stroke risk reduction. Can follow-up with electrophysiology on discharge. Consider reducing trazodone while on Multaq, if deemed necessary by primary hospitalist service. 2. Anemia: Has had issues with hematuria which has since resolved. Monitor CBC, especially while on anticoagulation therapy. 3. Anticoagulation therapy: Elevated [id number] with history of strokes. Continue anticoagulation if no contraindication. 4. Hypertension: Blood pressure has been normotensive to mildly hypertensive the past couple of days. Reducing rate control medications while initiating Multaq for concerns of bradycardia while on Multaq. Beta-jonel was held by nursing staff this morning due to bradycardia. Can resume GUILLAUME inhibitor, which she takes as an outpatient. 5. Disposition: Cardiology will continue to follow intermittently. On discharge, can follow-up with electrophysiology, Dr. Lee, who saw her earlier this hospital stay. Plan of care discussed with Dr. Vivar of the primary hospitalist service. Admission and Anticipated Discharge Date Admission Date: March 22, 2024 Subjective Patient seen this morning. She was unaccompanied in her hospital room. She feels "so-so." She is currently on room air. She states that she typically uses 2.5 to 3 L of supplemental oxygen via nasal cannula at home for COPD. She denies orthopnea. She denies syncope, near syncope. She has not had any further hematuria and denies other bleeding. She has chronic right lower extremity edema which she believes is at baseline. She denies chest pain. She has not had any further palpitations. Physical Exam Physical Exam: Gen.: No acute distress. Alert. HEENT: Anicteric sclera. Neck: No JVD. Cardiac: Regular. Normal S1-S2. 1/6 systolic murmur. Pulmonary: Clear to auscultation bilaterally without wheezes, rales, or rhonchi. Abdomen: Soft, nontender, nondistended, with normoactive bowel sounds. No bruits noted. Extremities: 2+ radial pulses bilaterally. 2+ posterior tibialis pulses bilaterally. Trace right lower extremity edema. No cyanosis. Results & Data Vital Signs (Past 12 Hours) Vital Signs Temp Pulse Pulse Resp BP Pulse Ox O2 Del Method 03/27/24 07:54 36.7 C 78 17 151/84 H 97 Nasal Cannula 03/27/24 02:51 36.6 C 102 H 16 135/87 97 Nasal Cannula 03/26/24 23:01 36.7 C 118 H 18 123/78 96 Nasal Cannula 03/26/24 22:00 114 H O2 Flow Rate 03/27/24 07:54 2 03/27/24 02:51 2.0 03/26/24 23:01 2.0 03/26/24 22:00 Intake & Output 03/25/24 03/26/24 03/27/24 03/28/24 06:59 06:59 06:59 06:59 Intake Total 1210 / 1210 1110 / 1110 510 / 510 Output Total 1653 / 1653 2 / 2 2650 / 2650 100 / 100 Balance -443 / -443 1108 / 1108 -2140 / -2140 -100 / -100 Weight 215 lb 2.738 oz 204 lb 12.951 oz 196 lb 6.91 oz Laboratory Results Laboratory Results - last 24 hr 03/22/24 03/26/24 03/26/24 Unknown 11:10 11:11 Sodium 143 Potassium 3.6 Chloride 109 H Carbon Dioxide 27 Anion Gap 7 BUN 17 Creatinine 0.82 Est Cr Clr Drug Dosing 70.6 eGFR 78.35 BUN/Creatinine Ratio 20.7 H Glucose 130 H POC Glucose 135 H Calcium 8.9 Magnesium 1.6 L Stone Source URFIL Stone Weight 0.001 Stone Composition SEE NOTE Stone Composition 2 DNR 03/26/24 03/26/24 03/27/24 15:58 20:31 05:25 Sodium 142 Potassium 3.3 L Chloride 104 Carbon Dioxide 29 Anion Gap 9 BUN 22 Creatinine 1.04 Est Cr Clr Drug Dosing 55.7 eGFR 58.91 BUN/Creatinine Ratio 21.2 H Glucose 109 H POC Glucose 140 H 122 H Calcium 9.0 Magnesium 1.7 Stone Source Stone Weight Stone Composition Stone Composition 2 03/27/24 07:09 Sodium Potassium Chloride Carbon Dioxide Anion Gap BUN Creatinine Est Cr Clr Drug Dosing eGFR BUN/Creatinine Ratio Glucose POC Glucose 114 H Calcium Magnesium Stone Source Stone Weight Stone Composition Stone Composition 2 Diagnostic Findings Telemetry personally reviewed: Sinus rhythm. She was in atrial fibrillation which converted to sinus rhythm at 4:21 AM on 03/27/2024. Labs reviewed and notable for mild hypokalemia, stable renal function, normal magnesium, mildly elevated transaminase levels, suppressed TSH, anemia which has been ongoing throughout this hospital stay. Chart reviewed. Echo report reviewed 03/23/2024: LV systolic function normal. EF 55 to 60%. Normal RV size and systolic function. No significant valvular abnormality. Medications Administered Current Inpatient Medications Acetaminophen (Acetaminophen 325 Mg Tab) 650 mg PO Q6H IVAN Stop: 04/22/24 15:59 Last Admin: 03/27/24 03:29 Dose: 650 mg Al Hydrox/Mg Hydrox/Simethicone (Aluminum/Magnesium Susp 30 Ml Udc) 30 ml PO Q6H PRN PRN Reason: Heartburn Stop: 04/24/24 17:10 Last Admin: 03/25/24 17:42 Dose: 30 ml Apixaban (Apixaban 5 Mg Tablet) 5 mg PO BID IVAN Stop: 04/23/24 12:44 Last Admin: 03/27/24 08:18 Dose: 5 mg Aripiprazole (Aripiprazole 10 Mg Tab) 20 mg PO HS IVAN Stop: 04/21/24 20:59 Last Admin: 03/26/24 21:35 Dose: 20 mg Calamine/Phenol (Menthol-Zinc Oxide 360 Appln/120 Gm Tube) 1 appln EXT TID PRN PRN Reason: perineal irritation Stop: 04/24/24 13:59 Last Admin: 03/26/24 08:20 Dose: 1 appln Cefuroxime Axetil (Cefuroxime Axetil 250 Mg Tablet) 250 mg PO BID IVAN Stop: 04/02/24 23:55 Last Admin: 03/26/24 21:36 Dose: 250 mg Cyanocobalamin (Cyanocobalamin (B-12) 500 Mcg Tablet) 1,000 mcg PO QAM IVAN Stop: 04/22/24 08:59 Last Admin: 03/27/24 08:19 Dose: 1,000 mcg Cyclobenzaprine HCl (Cyclobenzaprine Hcl 5 Mg Tab) 5 mg PO HS PRN PRN Reason: Muscle Spasm Stop: 04/21/24 01:33 Last Admin: 03/26/24 00:30 Dose: 5 mg Dextrose (Dextrose 50% 50 Ml Syringe) 25 - 50 ml IV UD PRN; Protocol PRN Reason: Hypoglycemia Protocol Stop: 04/21/24 03:08 Diltiazem HCl (Diltiazem Hcl 180 Mg Capcr) 180 mg PO BID IVAN Stop: 04/22/24 11:29 Last Admin: 03/27/24 08:19 Dose: 180 mg Ezetimibe (Ezetimibe 10 Mg Tab) 10 mg PO HS [facility] Stop: 04/21/24 20:59 Last Admin: 03/26/24 21:37 Dose: 10 mg Ferrous Sulfate (Ferrous Sulfate 325 Mg Tab) 325 mg PO Q48H IVAN Stop: 04/26/24 07:59 Fluticasone Furoate (Fluticasone Furoate 200mcg 14 Puffs/Inhaler) 1 puffs INH QAM IVAN Stop: 04/21/24 08:59 Last Admin: 03/27/24 08:19 Dose: 1 puffs Furosemide (Furosemide 20 Mg Tab) 20 mg PO DAILY IVAN Stop: 04/26/24 08:59 Last Admin: 03/27/24 08:19 Dose: 20 mg Glucagon (Glucagon For Inj 1 Mg Vial) 1 mg SQ UD PRN; Protocol PRN Reason: Hypoglycemia Protocol Stop: 04/21/24 03:08 Glucose (Glucose 40% Gel 15 Gm Tube) 15 - 30 gm PO UD PRN; Protocol PRN Reason: Hypoglycemia Protocol Stop: 04/21/24 03:08 Glucose (Glucose 10 Tab/Tube) 4 - 8 tab PO UD PRN; Protocol PRN Reason: Hypoglycemia Protocol Stop: 04/21/24 03:08 Insulin Aspart (Insulin Aspart Per Unit Charge) 0 units SC ACHS IVAN Stop: 04/21/24 07:29 Last Admin: 03/27/24 08:08 Dose: 2 units Ketoconazole (Ketoconazole 2% Cr 15 Gm Tube) 1 appln EXT BID PRN PRN Reason: candidiasis Stop: 04/04/24 13:16 Last Admin: 03/26/24 08:20 Dose: 1 appln Lactobacillus Acidophilus (Advanced Probiotic 625 Mg Capsule) 1,250 mg PO DAILY IVAN Stop: 04/24/24 13:29 Last Admin: 03/27/24 08:19 Dose: 1,250 mg Melatonin (Melatonin 3 Mg Tab) 3 mg PO HS PRN PRN Reason: Sleep Stop: 04/22/24 01:51 Last Admin: 03/26/24 21:43 Dose: 3 mg Metoprolol Tartrate (Metoprolol Tartrate 50 Mg Tab) 50 mg PO Q6 IVAN Stop: 04/25/24 11:59 Last Admin: 03/27/24 06:37 Dose: Not Given Miscellaneous (Carbohydrates For Hypoglycemia ) 15 - 30 gm PO UD PRN PRN Reason: Hypoglycemia Protocol Stop: 04/21/24 03:08 Nystatin (Nystatin Powder 15gm Btl) 1 appln EXT BID PRN PRN Reason: Affected Skin Folds Stop: 04/23/24 14:19 Last Admin: 03/26/24 08:22 Dose: 1 appln Ondansetron HCl (Ondansetron Inj 2 Mg/Ml 2 Ml Vial) 4 mg IV Q6H PRN PRN Reason: Nausea Stop: 04/21/24 01:33 Oxybutynin Chloride (Oxybutynin Chloride 5 Mg Tab) 5 mg PO BID IVAN Stop: 04/24/24 13:24 Last Admin: 03/26/24 21:36 Dose: 5 mg Oxycodone HCl (Oxycodone Hcl Ir 5 Mg Tab (Immediate Release)) 5 mg PO Q4H PRN PRN Reason: Pain Stop: 04/06/24 15:37 Last Admin: 03/27/24 06:44 Dose: 5 mg Phenazopyridine HCl (Phenazopyridine Hcl 100 Mg Tab) 100 mg PO TID PRN PRN Reason: Dysuria Stop: 04/22/24 15:37 Last Admin: 03/24/24 21:31 Dose: 100 mg Potassium Chloride (Potassium Chloride Crtab 20 Meq Tabcr) 40 meq PO QAM IVAN Stop: 04/26/24 08:59 Last Admin: 03/27/24 08:09 Dose: 40 meq Tamsulosin HCl (Tamsulosin Hcl 0.4 Mg Cap) 0.4 mg PO QAM IVAN Stop: 04/22/24 15:44 Last Admin: 03/27/24 08:20 Dose: 0.4 mg Trazodone HCl (Trazodone Hcl 100 Mg Tab) 300 mg PO HS IVAN Stop: 04/21/24 20:59 Last Admin: 03/26/24 21:36 Dose: 300 mg Umeclidinium/Vilanterol (Umeclidinium/Vilanterol 62.5/25mcg 7 Puffs/Inhaler) 1 puffs INH DAILY IVAN Stop: 04/21/24 08:59 Last Admin: 03/27/24 08:20 Dose: 1 puffs PG Care Time/CCT Total # of Minutes Spent Total Time Spent with Patient: Total time spent is greater than 50% in coordination of care (as documented) at patient's floor/unit and/or counseling patient: Coding Level of Care Code 32325 SUB INP/OBS CARE 3/50MIN Diagnoses Paroxysmal atrial fibrillation I48.0 Hypertension, unspecified type I10 Hypertension type: unspecified Anticoagulant long-term use Z79.01 Anemia, unspecified type D64.9 Anemia type: unspecified type (2) Hypertension Hypertension type: unspecified Qualified Code(s): I10 - Essential (primary) hypertension (4) Anemia Anemia type: unspecified type Qualified Code(s): D64.9 - Anemia, unspecified
[2024-03-27] MEDS: DRONEDARONE HCL 400 MG TAB PO SCH (11:21)
[2024-03-27] MEDS: FERROUS SULFATE 325 MG TAB PO SCH (11:29)
[2024-03-27] MEDS: lisinopril 20 MG TAB PO SCH (20:30)
[2024-03-27] MEDS: METOPROLOL TARTRATE 50 MG TAB PO SCH (20:30)
[2024-03-27] MEDS: traZODone HCL 50 MG TAB PO SCH (20:44)
--- NOTE | 2024-03-28 12:38 | Hospitalist Progress Note ---
Date of Service March 28, 2024 Assessment & Plan (1) Obstruction of left ureteropelvic junction (UPJ) due to stone: Plan: 68 y/o admitted with obstructing L UPJ stone, atrial fibrilation with rapid ventricular rate large, >10mm, obstructing kidney stone at UPJ on CT imaging ureteral stent placed 03/22 hematuria resolved topamax is contraindicated with kidney stones thus it has been stopped -pyridium and flomax PRN stent pain. improved still needing oxycodone. added oxybutynin -follow up with Dr. Goldsmith (2) Atrial fibrillation with RVR: Plan: based on history of palpitations and tachycardias has been ongoing several months -reviewed TTE, normal EF, mild TR -TSH low at 0.192 but fT4 normal consistent with euthyroid sick - repeat TSH in 6 weeks -at risk for BRANDEE -carotid duplex 50-69% LICA stenosis - outpatient follow up -[id number] = 7. ideally should be on ASA + DOAC with history of stroke and ASCVD -started apixaban evening of 03/24, no hematuria thus far -metoprolol and diltiazem increased 03/26 for rapid afib, needed a few doses IV diltiazem, electrolytes replaced and diuresed -03/27 started dronedarone for rhythm control, stopped diltiazem, continue metoprolol -monitor serial EKG for QTC and reduced dose of trazodone. reviewed EKG tracing today QTc [id number] overnight - remains in normal sinus rhythm continue same meds for today Acute on chronic diastolic heart failure -diuresed 03/26 with 20 mg lasix IV x 2 doses -resumed lasix 20 mg po daily 03/27 -resumed lisinopril - we have been replacing hypokalemia and hypomagnesemia - check AM BMP, mag (3) Hydronephrosis of left kidney: Plan: 2nd to large obstructing stone on left see #1 above (4) UTI (urinary tract infection): Plan: complicated, in the setting of obstructing kidney stone multiple organisms on urine culture initially treated with ceftriaxone antibiotics start date 03/22 - continue cefuroxime total 7-10 days (5) Sepsis: Plan: 2nd to complicated UTI, resolved (6) Acute kidney injury: Plan: presenting Cr 1.78 2nd to sepsis and obstruction from her left sided kidney stone Cr now 1 - possibly at baseline, if so, CKD-3 -GUILLAUME resumed (7) Hypokalemia: Plan: replacing, see above (8) Anemia: Plan: 2nd to chronic blood loss (hematuria) Fe level undetectable Ferritin not low but likely is 77 due to acute phase reactant B12 level low --> replace Vitamin B12 1000mcg daily Folate wnl Transfused 1 unit RBC 03/22 for symptomatic anemia 300 mg IV venofer 03/24 Oral replacement q48h ordered - a.m. CBC (9) Hypertension: Plan: metoprolol, lisinopril (10) CHF (congestive heart failure): Plan: chronic diastolic heart failure present on admission, acute on chronic diastolic HF developed 03/26- diuresis, now euvolemic TTE normal EF 55-60%, abnormal septal wall motion, mild LVH, mild TR, normal RV and valves -see above - continue furosemide metoprolol lisinopril (11) Diabetes mellitus: Plan: A1c 5.4 cont novolog SSI hold metformin blood glucose at goal today (12) Anxiety and depression: Plan: cont all home meds EXCEPT topamax (relative contraindicated due to kidney stone) (13) Morbid obesity with BMI of 40.0-44.9, adult: Plan: BMI 40 Plan mildly elevated AST, ALT 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 and some effect from rapid AF -resumed statin PT OT recommend rehab stay - SNF referrals made Admission and Anticipated Discharge Date Admission Date: March 22, 2024 Subjective Feels better, not short of breath was lightheaded when up and about but that was when she was in A-fib has not had PT OT at in normal sinus rhythm past 24 hours continues to have bladder pain and left flank pain related to urinary stent no hematuria Physical Exam 2 Physical Exam: PHYSICAL EXAMINATION Last 24h vital signs reviewed, see documentation in flowsheet General: awake and alert lying in bed HEENT: Normocephalic, atraumatic, pupils round and equal, sclerae anicteric, no conjunctival injection, moist mucus membranes Lungs: Normal respiratory effort. Clear to auscultation bilaterally. No RRW Heart: reg, no murmurs. No JVD Abdomen: Soft, nontender, nondistended. Bowel sounds present. Extremities: Warm, dry, well-perfused. no lower extremity edema Neuro: Alert and oriented x 4, face symmetric, moves 4 extremities well Psych: Normal affect and behavior Results & Data Results & Data Vital Signs (Past 12 Hours) Vital Signs Temp Pulse Pulse Resp BP Pulse Ox O2 Del Method 03/28/24 10:19 36.8 C 63 18 143/75 H 90 Room Air 03/28/24 08:34 Room Air 03/28/24 08:33 56 L 03/28/24 07:30 36.4 C L 68 17 147/84 H 99 Nasal Cannula 03/28/24 03:54 36.6 C 52 L 17 132/71 98 Nasal Cannula O2 Flow Rate 03/28/24 10:19 03/28/24 08:34 03/28/24 08:33 03/28/24 07:30 2 03/28/24 03:54 2 Laboratory Results 03/25/24 06:15 03/27/24 05:25 PG Care Time/CCT Total # of Minutes Spent Total Time Spent with Patient: Total time spent is greater than 50% in coordination of care (as documented) at patient's floor/unit and/or counseling patient: Coding Level of Care Code 60727 SUB INP/OBS CARE 2/35MIN Diagnoses Obstruction of left ureteropelvic junction (UPJ) due to stone N20.1 Atrial fibrillation with RVR I48.91 Hydronephrosis of left kidney N13.30 UTI (urinary tract infection) N30.01 Hematuria presence: with hematuria Urinary tract infection type: acute cystitis Sepsis A41.9 Sepsis acute organ dysfunction status: unspecified Sepsis type: sepsis due to unspecified organism Acute kidney injury N17.9 Hypokalemia E87.6 Anemia, unspecified type D64.9 Anemia type: unspecified type Hypertension, unspecified type I10 Hypertension type: unspecified CHF (congestive heart failure) I50.9 Diabetes mellitus E11.9 Anxiety and depression F41.9; F32.A Morbid obesity with BMI of 40.0-44.9, adult E66.01; Z68.41 (4) UTI (urinary tract infection) Hematuria presence: with hematuria Urinary tract infection type: acute cystitis Qualified Code(s): N30.01 - Acute cystitis with hematuria (5) Sepsis Sepsis acute organ dysfunction status: unspecified Sepsis type: sepsis due to unspecified organism Qualified Code(s): A41.9 - Sepsis, unspecified organism (8) Anemia Anemia type: unspecified type Qualified Code(s): D64.9 - Anemia, unspecified (9) Hypertension Hypertension type: unspecified Qualified Code(s): I10 - Essential (primary) hypertension
--- NOTE | 2024-03-28 14:35 | Cardiology Progress Note ---
Date of Service March 28, 2024 Assessment & Plan (1) Paroxysmal atrial fibrillation: (2) Hypertension: (3) Anticoagulant long-term use: (4) Anemia: Plan ASSESSMENT/PLAN: 1. Paroxysmal atrial fibrillation: Symptomatic and tends to be with elevated heart rate. Given that she has had recurrent episodes while hospitalized, Multaq initiated on 03/27/2024. No further atrial fibrillation thus far. Given her risk factors for CAD, trying avoid Class Ic meds; given young age trying to avoid amiodarone. Can continue beta-jonel. Continue anticoagulation for stroke risk reduction. Can follow-up with electrophysiology on discharge. 2. Anemia: Has had issues with hematuria which has since resolved. Monitor CBC, especially while on anticoagulation therapy. 3. Anticoagulation therapy: Elevated [id number] with history of strokes. Continue anticoagulation if no contraindication. 4. Hypertension: Blood pressure has been normotensive to mildly hypertensive. Continue beta-jonel and GUILLAUME inhibitor. 5. Disposition: Cardiology will sign off at this time. Call with any further questions or concerns. On discharge, can follow-up with electrophysiology, Dr. Lee, who saw her earlier this hospital stay. Plan of care discussed with Dr. Vivar of the primary hospitalist service. Admission and Anticipated Discharge Date Admission Date: March 22, 2024 Subjective Patient seen earlier today. Her was present at the bedside. She denies any further palpitations. She had an episode of right sided chest pain while l aying in bed today but no angina. She has occasional shortness of breath without exertion. She denies syncope, near syncope, edema, or bleeding. Physical Exam Physical Exam: Gen.: No acute distress. Alert. HEENT: Anicteric sclera. Neck: No JVD. Cardiac: Regular. Normal S1-S2. 1/6 systolic murmur. Pulmonary: Clear to auscultation bilaterally without wheezes, rales, or rhonchi. Abdomen: Soft, nontender, nondistended, with normoactive bowel sounds. No bruits noted. Extremities: 2+ radial pulses bilaterally. 2+ posterior tibialis pulses bilaterally. Trace right lower extremity edema. No cyanosis. Results & Data Vital Signs (Past 12 Hours) Vital Signs Temp Pulse Pulse Resp BP Pulse Ox O2 Del Method 03/28/24 13:34 72 03/28/24 10:19 36.8 C 63 18 143/75 H 90 Room Air 03/28/24 08:34 Room Air 03/28/24 08:33 56 L 03/28/24 07:30 36.4 C L 68 17 147/84 H 99 Nasal Cannula 03/28/24 03:54 36.6 C 52 L 17 132/71 98 Nasal Cannula O2 Flow Rate 03/28/24 13:34 03/28/24 10:19 03/28/24 08:34 03/28/24 08:33 03/28/24 07:30 2 03/28/24 03:54 2 Intake & Output 03/26/24 03/27/24 03/28/24 03/29/24 06:59 06:59 06:59 06:59 Intake Total 1110 / 1110 510 / 510 340 / 340 300 / 300 Output Total / 2650 / 2650 1750 / 1750 850 / 850 Balance 1108 / 1108 -2140 / -2140 -1410 / -1410 -550 / -550 Weight 204 lb 12.951 oz 196 lb 6.91 oz 207 lb 14.405 oz Laboratory Results Laboratory Results - last 24 hr 03/27/24 03/27/24 03/28/24 16:04 21:12 06:58 POC Glucose 120 H 118 H 97 03/28/24 11:00 POC Glucose 111 H Diagnostic Findings Telemetry personally reviewed: Sinus rhythm. No recurrent atrial fibrillation. ECG personally reviewed 03/28/2024 at 5:59 AM: Sinus bradycardia 58 bpm. Medications Administered Current Inpatient Medications Acetaminophen (Acetaminophen 325 Mg Tab) 650 mg PO Q6H IVAN Stop: 04/22/24 15:59 Last Admin: 03/28/24 11:11 Dose: Not Given Al Hydrox/Mg Hydrox/Simethicone (Aluminum/Magnesium Susp 30 Ml Udc) 30 ml PO Q6H PRN PRN Reason: Heartburn Stop: 04/24/24 17:10 Last Admin: 03/25/24 17:42 Dose: 30 ml Apixaban (Apixaban 5 Mg Tablet) 5 mg PO BID IVAN Stop: 04/23/24 12:44 Last Admin: 03/28/24 08:08 Dose: 5 mg Aripiprazole (Aripiprazole 10 Mg Tab) 20 mg PO HS IVAN Stop: 04/21/24 20:59 Last Admin: 03/27/24 20:29 Dose: 20 mg Calamine/Phenol (Menthol-Zinc Oxide 360 Appln/120 Gm Tube) 1 appln EXT TID PRN PRN Reason: perineal irritation Stop: 04/24/24 13:59 Last Admin: 03/26/24 08:20 Dose: 1 appln Cefuroxime Axetil (Cefuroxime Axetil 250 Mg Tablet) 250 mg PO BID IVAN Stop: 04/02/24 23:55 Last Admin: 03/28/24 08:06 Dose: 250 mg Cyanocobalamin (Cyanocobalamin (B-12) 500 Mcg Tablet) 1,000 mcg PO QAM IVAN Stop: 04/22/24 08:59 Last Admin: 03/28/24 08:07 Dose: 1,000 mcg Cyclobenzaprine HCl (Cyclobenzaprine Hcl 5 Mg Tab) 5 mg PO HS PRN PRN Reason: Muscle Spasm Stop: 04/21/24 01:33 Last Admin: 03/26/24 00:30 Dose: 5 mg Dextrose (Dextrose 50% 50 Ml Syringe) 25 - 50 ml IV UD PRN; Protocol PRN Reason: Hypoglycemia Protocol Stop: 04/21/24 03:08 Dronedarone (Dronedarone Hcl 400 Mg Tab) 400 mg PO BIDM IVAN Stop: 04/26/24 10:29 Last Admin: 03/28/24 07:27 Dose: 400 mg Ezetimibe (Ezetimibe 10 Mg Tab) 10 mg PO HS IVAN Stop: 04/21/24 20:59 Last Admin: 03/27/24 20:31 Dose: 10 mg Ferrous Sulfate (Ferrous Sulfate 325 Mg Tab) 325 mg PO Q48H IVAN Stop: 04/26/24 07:59 Last Admin: 03/27/24 11:29 Dose: 325 mg Fluticasone Furoate (Fluticasone Furoate 200mcg 14 Puffs/Inhaler) 1 puffs INH QAM IVAN Stop: 04/21/24 08:59 Last Admin: 03/28/24 08:09 Dose: 1 puffs Furosemide (Furosemide 20 Mg Tab) 20 mg PO DAILY IVAN Stop: 04/26/24 08:59 Last Admin: 03/28/24 08:08 Dose: 20 mg Glucagon (Glucagon For Inj 1 Mg Vial) 1 mg SQ UD PRN; Protocol PRN Reason: Hypoglycemia Protocol Stop: 04/21/24 03:08 Glucose (Glucose 40% Gel 15 Gm Tube) 15 - 30 gm PO UD PRN; Protocol PRN Reason: Hypoglycemia Protocol Stop: 04/21/24 03:08 Glucose (Glucose 10 Tab/Tube) 4 - 8 tab PO UD PRN; Protocol PRN Reason: Hypoglycemia Protocol Stop: 04/21/24 03:08 Insulin Aspart (Insulin Aspart Per Unit Charge) 0 units SC ACHS IVAN Stop: 04/21/24 07:29 Last Admin: 03/28/24 11:47 Dose: Not Given Ketoconazole (Ketoconazole 2% Cr 15 Gm Tube) 1 appln EXT BID PRN PRN Reason: candidiasis Stop: 04/04/24 13:16 Last Admin: 03/26/24 08:20 Dose: 1 appln Lactobacillus Acidophilus (Advanced Probiotic 625 Mg Capsule) 1,250 mg PO DAILY IVAN Stop: 04/24/24 13:29 Last Admin: 03/28/24 08:07 Dose: 1,250 mg Lisinopril (Lisinopril 20 Mg Tab) 20 mg PO BID IVAN Stop: 04/26/24 20:59 Last Admin: 03/28/24 08:08 Dose: 20 mg Melatonin (Melatonin 3 Mg Tab) 3 mg PO HS PRN PRN Reason: Sleep Stop: 04/22/24 01:51 Last Admin: 03/27/24 21:36 Dose: 3 mg Metoprolol Tartrate (Metoprolol Tartrate 50 Mg Tab) 50 mg PO BID [facility] Stop: 04/26/24 20:59 Last Admin: 03/28/24 08:06 Dose: 50 mg Miscellaneous (Carbohydrates For Hypoglycemia ) 15 - 30 gm PO UD PRN PRN Reason: Hypoglycemia Protocol Stop: 04/21/24 03:08 Nystatin (Nystatin Powder 15gm Btl) 1 appln EXT BID PRN PRN Reason: Affected Skin Folds Stop: 04/23/24 14:19 Last Admin: 03/26/24 08:22 Dose: 1 appln Ondansetron HCl (Ondansetron Inj 2 Mg/Ml 2 Ml Vial) 4 mg IV Q6H PRN PRN Reason: Nausea Stop: 04/21/24 01:33 Oxybutynin Chloride (Oxybutynin Chloride 5 Mg Tab) 5 mg PO BID IVAN Stop: 04/24/24 13:24 Last Admin: 03/28/24 08:08 Dose: 5 mg Oxycodone HCl (Oxycodone Hcl Ir 5 Mg Tab (Immediate Release)) 5 mg PO Q4H PRN PRN Reason: Pain Stop: 04/06/24 15:37 Last Admin: 03/28/24 07:27 Dose: 5 mg Phenazopyridine HCl (Phenazopyridine Hcl 100 Mg Tab) 100 mg PO TID PRN PRN Reason: Dysuria Stop: 04/22/24 15:37 Last Admin: 03/24/24 21:31 Dose: 100 mg Potassium Chloride (Potassium Chloride Crtab 20 Meq Tabcr) 40 meq PO QAM IVAN Stop: 04/26/24 08:59 Last Admin: 03/28/24 08:12 Dose: 40 meq Tamsulosin HCl (Tamsulosin Hcl 0.4 Mg Cap) 0.4 mg PO QAM IVAN Stop: 04/22/24 15:44 Last Admin: 03/28/24 08:07 Dose: 0.4 mg Trazodone HCl (Trazodone Hcl 50 Mg Tab) 150 mg PO HS IVAN Stop: 04/26/24 20:59 Last Admin: 03/27/24 20:44 Dose: 150 mg Umeclidinium/Vilanterol (Umeclidinium/Vilanterol 62.5/25mcg 7 Puffs/Inhaler) 1 puffs INH DAILY IVAN Stop: 04/21/24 08:59 Last Admin: 03/28/24 08:09 Dose: 1 puffs PG Care Time/CCT Total # of Minutes Spent Total Time Spent with Patient: Total time spent is greater than 50% in coordination of care (as documented) at patient's floor/unit and/or counseling patient: Coding Level of Care Code 96640 SUB INP/OBS CARE 3/50MIN Diagnoses Paroxysmal atrial fibrillation I48.0 Hypertension, unspecified type I10 Hypertension type: unspecified Anticoagulant long-term use Z79.01 Anemia, unspecified type D64.9 Anemia type: unspecified type (2) Hypertension Hypertension type: unspecified Qualified Code(s): I10 - Essential (primary) hypertension (4) Anemia Anemia type: unspecified type Qualified Code(s): D64.9 - Anemia, unspecified
--- NOTE | 2024-03-28 17:59 | Communication Note ---
Date of Service: March 28, 2024 Chest pain, now resolved and has some abdominal pain. Had just eaten dinner. EKG no ischemic changes - personally reviewed EKG tracing Possibly indigestion - ordered maalox and pepcid IV Check HS-trop and repeat in 2h if >20
[2024-03-28] MEDS: MoRPHine SULFATE 2 MG/ML CARP IV STA (18:03)
[2024-03-28] MEDS: ALUMINUM/MAGNESIUM/SIMETH (MAALOX MAX) 30 ML UDC PO STA (18:04)
[2024-03-28] MEDS: FAMOTIDINE 20MG IV PUSH 20 MG/5 ML SYR IV STA (18:35)
[2024-03-29 06:12] LABS: Hematocrit (blood only) 31.6 % (37.0-47.0); Mean Corpuscular Hemoglobin 27.1 pg (25.0-34.0); Mean Corpuscular Hgb Conc 31.6 g/dL (32.0-36.0); Mean Corpuscular Volume 85.6 fL (80.0-100.0); Mean Platelet Volume 8.9 fL (9.4-12.4); Platelet Count 519 K/uL (130-400); RDW Coefficient of Variation 17.3 % (11.5-14.5); RDW Standard Deviation 53.1 fL (36.4-46.3); Red Blood Count 3.69 M/uL (4.20-5.40); White Blood Count 5.81 K/ul (4.8-10.8)
[2024-03-29 06:28] LABS: BUN Creatinine Ratio 23.5 (10-20); Calcium 9.7 mg/dl (8.6-10.3); Creatinine Clr Calc Pharmacy 49.1 ml/min; Magnesium 1.9 mg/dl (1.7-2.4)
[2024-03-29] MEDS ORDERED: oxyBUTYnin chloride 5 MG TAB PO PRN (10:05)
[2024-03-29] MEDS: lamoTRIgine 25 MG TAB PO SCH (11:09)
[2024-03-29] MEDS: SERTRALINE HCL 100 MG TABLET PO SCH (11:09)
[2024-03-29] MEDS: oxyBUTYnin chloride 5 MG TAB PO SCH (13:08)
--- NOTE | 2024-03-29 14:09 | Hospitalist Progress Note ---
Date of Service March 29, 2024 Assessment & Plan (1) Obstruction of left ureteropelvic junction (UPJ) due to stone: Plan: 68 y/o admitted with obstructing L UPJ stone, new onset atrial fibrillation with rapid ventricular rate large, >10mm, obstructing kidney stone at UPJ on CT imaging ureteral stent placed 03/22 hematuria resolved topamax is contraindicated with kidney stones thus it has been stopped - continue Flomax, increased oxybutynin to 3 times daily for pain from bladder spasms, added 5 mg as needed -follow up with Dr. Goldsmith (2) Atrial fibrillation with RVR: Plan: based on history of palpitations and tachycardias has been ongoing several months during this admission she had several episodes of atrial fibrillation with rapid rate, when she is in A-fib her rate is very difficult to control even with high doses of AV casey blockers she had developed some volume overload and I diuresed her, she reverted back to normal sinus rhythm and tie maker recommended dronedarone for rhythm control -reviewed TTE, normal EF, mild TR -TSH low at 0.192 but fT4 normal consistent with euthyroid sick - repeat TSH in 6 weeks -at risk for BRANDEE -carotid duplex 50-69% LICA stenosis - outpatient follow up -[id number] = 7. ideally should be on ASA + DOAC with history of stroke and ASCVD -started apixaban evening of 03/24, no hematuria thus far - continue metoprolol -03/27 started dronedarone for rhythm control, has been in normal sinus rhythm last several days -monitor serial EKG for QTC - increased trazodone from 150 at bedtime back to her usual dose of 300 at bedtime today because she is unable to sleep, every morning EKG to monitor QTc Acute on chronic diastolic heart failure -diuresed 03/26 with 20 mg lasix IV x 2 doses -resumed lasix 20 mg po daily 03/27 -resumed lisinopril - euvolemic at this time. potassium and magnesium are normal today. no longer having diarrhea so we will start oral magnesium replacement, continue oral potassium replacement scheduled (3) Hydronephrosis of left kidney: Plan: 2nd to large obstructing stone on left see #1 above (4) UTI (urinary tract infection): Plan: complicated, in the setting of obstructing kidney stone multiple organisms on urine culture initially treated with ceftriaxone antibiotics start date 03/22 - continue cefuroxime total 7-10 days (5) Sepsis: Plan: 2nd to complicated UTI, resolved (6) Acute kidney injury: Plan: ARELY on CKD 3 presenting Cr 1.78, eventually came down as low as 0.8-0.9 2nd to sepsis and obstruction from her left sided kidney stone -GUILLAUME resumed, creatinine has increased a little bit to 1.19 with GUILLAUME as expected (7) Hypokalemia: Plan: replacing, see above (8) Anemia: Plan: 2nd to chronic blood loss (hematuria) Fe level undetectable Ferritin not low but likely is 77 due to acute phase reactant B12 level low --> replace Vitamin B12 1000mcg daily Folate wnl Transfused 1 unit RBC 03/22 for symptomatic anemia 300 mg IV venofer 03/24 Oral replacement q48h ordered - hemoglobin has improved to 10.0 (9) Hypertension: Plan: metoprolol, lisinopril (10) CHF (congestive heart failure): Plan: chronic diastolic heart failure present on admission, acute on chronic diastolic HF developed 03/26- diuresis, now euvolemic TTE normal EF 55-60%, abnormal septal wall motion, mild LVH, mild TR, normal RV and valves -see above - continue furosemide metoprolol lisinopril (11) Diabetes mellitus: Plan: A1c 5.4 cont novolog SSI hold metformin blood glucose at goal (12) Anxiety and depression: Plan: continue Abilify, resumed sertraline and Lamictal increased trazodone back to baseline dose of 300 mg at bedtime monitor QTc stopped topamax (relatively contraindicated due to kidney stone) (13) Morbid obesity with BMI of 40.0-44.9, adult: Plan: BMI 40 Plan mildly elevated AST, ALT 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 and some effect from rapid AF -resumed statin PT OT recommend rehab stay - SNF referrals made transfer to [facility] telemetry unit Admission and Anticipated Discharge Date Admission Date: March 22, 2024 Arabella Clark had a hard time sleeping last night and the nurses reported she was crying no shortness of breath no chest pain no longer in atrial fibrillation still having suprapubic crampy bladder pain seems worse last night and today, generally it has been worse in the evenings Physical Exam 2 Physical Exam: PHYSICAL EXAMINATION Last 24h vital signs reviewed, see documentation in flowsheet General: awake, seen early HEENT: Normocephalic, atraumatic, pupils round and equal, sclerae anicteric, no conjunctival injection, moist mucus membranes Lungs: Normal respiratory effort. Clear to auscultation bilaterally. No RRW Heart: reg, no murmurs. No JVD Abdomen: Soft, nontender, nondistended. Bowel sounds present. no suprapubic tenderness Extremities: Warm, dry, well-perfused. no lower extremity edema Neuro: Alert and oriented x 4, face symmetric, moves 4 extremities well Psych: Normal affect and behavior Results & Data Results & Data Vital Signs (Past 12 Hours) Vital Signs Temp Pulse Pulse Resp BP Pulse Ox O2 Del Method 03/29/24 13:32 73 03/29/24 12:08 37 C 77 18 158/92 H 92 Room Air 03/29/24 12:05 Room Air 03/29/24 11:16 37.2 C 69 18 152/87 H 92 Room Air 03/29/24 08:00 36.7 C 79 18 147/81 H 91 Nasal Cannula 03/29/24 07:15 63 03/29/24 03:55 36.7 C 59 L 17 154/83 H 98 Nasal Cannula O2 Flow Rate 03/29/24 13:32 03/29/24 12:08 03/29/24 12:05 03/29/24 11:16 03/29/24 08:00 2.0 03/29/24 07:15 03/29/24 03:55 2 Laboratory Results 03/29/24 05:34 03/29/24 05:34 PG Care Time/CCT Total # of Minutes Spent Total Time Spent with Patient: Total time spent is greater than 50% in coordination of care (as documented) at patient's floor/unit and/or counseling patient: Coding Level of Care Code 29969 SUB INP/OBS CARE 2/35MIN Diagnoses Obstruction of left ureteropelvic junction (UPJ) due to stone N20.1 Atrial fibrillation with RVR I48.91 Hydronephrosis of left kidney N13.30 UTI (urinary tract infection) N30.01 Hematuria presence: with hematuria Urinary tract infection type: acute cystitis Sepsis A41.9 Sepsis acute organ dysfunction status: unspecified Sepsis type: sepsis due to unspecified organism Acute kidney injury N17.9 Hypokalemia E87.6 Anemia, unspecified type D64.9 Anemia type: unspecified type Hypertension, unspecified type I10 Hypertension type: unspecified CHF (congestive heart failure) I50.9 Diabetes mellitus E11.9 Anxiety and depression F41.9; F32.A Morbid obesity with BMI of 40.0-44.9, adult E66.01; Z68.41 (4) UTI (urinary tract infection) Hematuria presence: with hematuria Urinary tract infection type: acute cystitis Qualified Code(s): N30.01 - Acute cystitis with hematuria (5) Sepsis Sepsis acute organ dysfunction status: unspecified Sepsis type: sepsis due to unspecified organism Qualified Code(s): A41.9 - Sepsis, unspecified organism (8) Anemia Anemia type: unspecified type Qualified Code(s): D64.9 - Anemia, unspecified (9) Hypertension Hypertension type: unspecified Qualified Code(s): I10 - Essential (primary) hypertension
[2024-03-29] MEDS: MAGNESIUM SULFATE / D5W 1 GM/100 ML BAG IV ONE (18:05)
[2024-03-29] MEDS: METOPROLOL TARTRATE 50 MG TAB PO STA (18:08)
--- NOTE | 2024-03-29 18:31 | Communication Note ---
Date of Service: March 29, 2024 Converted from NSR back to Afib with RVR Not hypotensive Does have some chest pressure and lightheadedness stat EKG - reviewed tracing - afib with RVR rate 120s PAF - has been in and out several times this admission, rate when in Afib has never been well controlled On dronedarone and apixaban Ordered metoprolol po 50 mg x 1 and increase oral metoprolol to 75 mg bid. Earlier this admission had tolerated dilt 360 mg daily as well as metoprolol at the same time (no longer on dilt) Transfer back to PCU because in past she has been very difficult to rate control (though generally has tolerated well), may need IV diltiazem. K 4.0 this AM and mag also normal 1.9 - ordered 1g mag IV Discuss with cardiology in am
--- NOTE | 2024-03-29 19:06 | Electrocardiogram Report ---
Test Reason : Blood Pressure : */* mmHG Vent. Rate : 71 BPM Atrial Rate : 71 BPM P-R Int : 164 ms QRS Dur : 70 ms QT Int : 440 ms P-R-T Axes : 50 12 59 degrees QTcB Int : 478 ms Normal sinus rhythm Normal ECG When compared with ECG of 22-Mar-2024 04:20, Sinus rhythm has replaced Atrial fibrillation Confirmed by Atilio Segura ([id number]) on 03/29/2024 7:06:04 PM Referred By: REFERRED SELF Confirmed By: Atilio Segura
--- NOTE | 2024-03-29 19:06 | Electrocardiogram Report ---
Test Reason : Blood Pressure : */* mmHG Vent. Rate : 58 BPM Atrial Rate : 58 BPM P-R Int : 192 ms QRS Dur : 76 ms QT Int : 472 ms P-R-T Axes : 29 3 47 degrees QTcB Int : 463 ms Sinus bradycardia Otherwise normal ECG When compared with ECG of 27-Mar-2024 10:50, No significant change was found Confirmed by Atilio Segura ([id number]) on 03/29/2024 7:06:14 PM Referred By: REFERRED SELF Confirmed By: Atilio Segura
--- NOTE | 2024-03-29 19:07 | Electrocardiogram Report ---
Test Reason : Blood Pressure : */* mmHG Vent. Rate : 68 BPM Atrial Rate : 68 BPM P-R Int : 168 ms QRS Dur : 72 ms QT Int : 414 ms P-R-T Axes : 51 16 57 degrees QTcB Int : 440 ms Sinus rhythm with Premature atrial complexes Otherwise normal ECG When compared with ECG of 28-Mar-2024 05:59, Premature atrial complexes are now Present Confirmed by Atilio Segura ([id number]) on 03/29/2024 7:06:31 PM Referred By: REFERRED SELF Confirmed By: Atilio Segura
--- NOTE | 2024-03-29 19:07 | Electrocardiogram Report ---
Test Reason : Blood Pressure : */* mmHG Vent. Rate : 64 BPM Atrial Rate : 64 BPM P-R Int : 180 ms QRS Dur : 76 ms QT Int : 452 ms P-R-T Axes : 39 9 51 degrees QTcB Int : 466 ms Normal sinus rhythm Normal ECG When compared with ECG of 28-Mar-2024 17:34, Premature atrial complexes are no longer Present Confirmed by Atilio Segura ([id number]) on 03/29/2024 7:06:46 PM Referred By: REFERRED SELF Confirmed By: Atilio Segura
[2024-03-29] MEDS: traZODone HCL 100 MG TAB PO SCH (21:31)
[2024-03-29] MEDS: METOPROLOL TARTRATE 25 MG TAB PO SCH (22:26)
[2024-03-30 06:40] LABS: BUN Creatinine Ratio 27.6 (10-20); Calcium 9.7 mg/dl (8.6-10.3); Magnesium 2.2 mg/dl (1.7-2.4)
[2024-03-30 06:58] LABS: T4 Free Thyroxine 1.1 ng/dl (0.61-1.60)
--- NOTE | 2024-03-30 08:37 | Electrocardiogram Report ---
Test Reason : Blood Pressure : */* mmHG Vent. Rate : 56 BPM Atrial Rate : 56 BPM P-R Int : 184 ms QRS Dur : 76 ms QT Int : 466 ms P-R-T Axes : 4 35 -1 degrees QTcB Int : 449 ms Sinus bradycardia Otherwise normal ECG When compared with ECG of 29-Mar-2024 18:16, Sinus rhythm has replaced Atrial fibrillation Vent. rate has decreased by 67 bpm T wave inversion now evident in Inferior leads Confirmed by Atilio Segura ([id number]) on 03/30/2024 8:37:43 AM Referred By: REFERRED SELF Confirmed By: Atilio Segura
--- NOTE | 2024-03-30 08:37 | Electrocardiogram Report ---
Test Reason : Blood Pressure : */* mmHG Vent. Rate : 123 BPM Atrial Rate : 133 BPM P-R Int : * ms QRS Dur : 72 ms QT Int : 330 ms P-R-T Axes : * 22 90 degrees QTcB Int : 472 ms Atrial fibrillation with rapid ventricular response Abnormal ECG When compared with ECG of 29-Mar-2024 06:17, Atrial fibrillation has replaced Sinus rhythm Confirmed by Atilio Segura ([id number]) on 03/30/2024 8:37:09 AM Referred By: REFERRED SELF Confirmed By: Atilio Segura
[2024-03-30] MEDS: MAGNESIUM CHLORIDE W/CALCIUM 64MG DELAYED REL TAB PO SCH (08:51)
[2024-03-30] MEDS: FAMOTIDINE 20 MG TAB PO PRN (10:37)
--- NOTE | 2024-03-30 11:22 | Hospitalist Progress Note ---
Date of Service March 30, 2024 Assessment & Plan (1) Obstruction of left ureteropelvic junction (UPJ) due to stone: Plan: 68 y/o admitted with obstructing L UPJ stone, new onset atrial fibrillation with rapid ventricular rate large, >10mm, obstructing kidney stone at UPJ on CT imaging ureteral stent placed 03/22 hematuria resolved topamax is contraindicated with kidney stones thus it has been stopped - continue Flomax, increased oxybutynin to 3 times daily for pain from bladder spasms, added 5 mg as needed -follow up with Dr. Goldsmith (2) Atrial fibrillation with RVR: Plan: based on history of palpitations and tachycardias has been ongoing several months during this admission she has had three sustained episodes of atrial fibrillation with rapid rate, when she is in A-fib her rate has not been controlled even with high doses of AV casey blockers she had developed some volume overload and I diuresed her, currently euvolemic -reviewed TTE, normal EF, mild TR -TSH low at 0.192 but fT4 normal consistent with euthyroid sick, repeat T4 still normal this AM - repeat TSH in 6 weeks -at risk for BRANDEE - ordered overnight oximetry 03/29 -carotid duplex 50-69% LICA stenosis - outpatient follow up -[id number] = 7. ideally should be on ASA + DOAC with history of stroke and ASCVD -started apixaban evening of 03/24, no hematuria thus far - continue metoprolol - increased to 75 bid on 03/29 pm -03/27 started dronedarone for rhythm control -monitor serial EKG for QTC - increased trazodone from 150 at bedtime back to her usual dose of 300 at bedtime today because she is unable to sleep, every morning EKG to monitor QTc. Rev EKG - QTC ok 449 today -sent message to discuss with Dr. Lee Acute on chronic diastolic heart failure -diuresed 03/26 with 20 mg lasix IV x 2 doses -resumed lasix 20 mg po daily 03/27, on dry side and BUN/Cr increased a bit to 35/1.27. skip dose today and changed to q48h starting in AM. Usually takes PRN at home -continue lisinopril -continue oral potassium and magnesium replacement. K/mag normal today (3) Hydronephrosis of left kidney: Plan: 2nd to large obstructing stone on left see #1 above (4) UTI (urinary tract infection): Plan: complicated, in the setting of obstructing kidney stone multiple organisms on urine culture initially treated with ceftriaxone antibiotics start date 03/22 - continue cefuroxime 10 days (5) Sepsis: Plan: 2nd to complicated UTI, resolved (6) Acute kidney injury: Plan: ARELY on CKD 3 presenting Cr 1.78, eventually came down as low as 0.8-0.9 2nd to sepsis and obstruction from her left sided kidney stone -GUILLAUME resumed, creatinine has increased a little bit to 1.25, partly related to resuming GUILLAUME also may be dry held lasix today (7) Hypokalemia: Plan: replacing, see above (8) Anemia: Plan: 2nd to chronic blood loss (hematuria) Fe level undetectable Ferritin not low but likely is 77 due to acute phase reactant B12 level low --> replace Vitamin B12 1000mcg daily Folate wnl Transfused 1 unit RBC 03/22 for symptomatic anemia 300 mg IV venofer 03/24 Oral replacement q48h ordered - hemoglobin has improved to 10.0 (9) Hypertension: Plan: metoprolol, lisinopril (10) CHF (congestive heart failure): Plan: chronic diastolic heart failure present on admission, acute on chronic diastolic HF developed 03/26- diuresis, now euvolemic TTE normal EF 55-60%, abnormal septal wall motion, mild LVH, mild TR, normal RV and valves -see above - continue furosemide metoprolol lisinopril (11) Diabetes mellitus: Plan: A1c 5.4 cont novolog SSI hold metformin blood glucose at goal (12) Anxiety and depression: Plan: continue Abilify, resumed sertraline and Lamictal increased trazodone back to baseline dose of 300 mg at bedtime monitor QTc stopped topamax (relatively contraindicated due to kidney stone) (13) Morbid obesity with BMI of 40.0-44.9, adult: Plan: BMI 40 Plan mildly elevated AST, ALT 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 I discussed with her today concerns that she could fall and may not be able to handle her stairs safely thus recommended SNF rehab. She feels like she is at her baseline physical status now and prefers home with HH says her ex is around most of the time to help her. She is also in process of getting stair lift. Plan to stay on PCU because she keeps getting transferred in/out/in for rapid AF Admission and Anticipated Discharge Date Admission Date: March 22, 2024 Subjective Feeling well this am. Was in rapid AF yesterday evening and had lightheadedness and chest pressure during that time. Physically she feels like she is back at her baseline Physical Exam 2 Physical Exam: PHYSICAL EXAMINATION Last 24h vital signs reviewed, see documentation in flowsheet General: awake and alert Exam unchanged 03/30 HEENT: Normocephalic, atraumatic, pupils round and equal, sclerae anicteric, no conjunctival injection, moist mucus membranes Lungs: Normal respiratory effort. Clear to auscultation bilaterally. No RRW Heart: reg, no murmurs. No JVD Abdomen: Soft, nontender, nondistended. Bowel sounds present. no suprapubic tenderness Extremities: Warm, dry, well-perfused. no lower extremity edema Neuro: Alert and oriented x 4, face symmetric, moves 4 extremities well Psych: Normal affect and behavior Results & Data Results & Data Vital Signs (Past 12 Hours) Vital Signs Temp Pulse Pulse Resp BP BP Pulse Ox 03/30/24 10:43 36.5 C 67 18 138/81 94 03/30/24 07:43 36.5 C 59 L 18 155/82 H 98 03/30/24 07:00 69 03/30/24 04:30 36.7 C 62 18 118/75 92 03/30/24 01:00 O2 Del Method O2 Del Method O2 Flow Rate O2 Flow Rate 03/30/24 10:43 Room Air 03/30/24 07:43 Nasal Cannula 2 03/30/24 07:00 03/30/24 04:30 Room Air 03/30/24 01:00 Nasal Cannula 2 Laboratory Results 03/29/24 05:34 03/30/24 05:55 PG Care Time/CCT Total # of Minutes Spent Total Time Spent with Patient: Total time spent is greater than 50% in coordination of care (as documented) at patient's floor/unit and/or counseling patient: Coding Level of Care Code 93879 SUB INP/OBS CARE 2/35MIN Diagnoses Obstruction of left ureteropelvic junction (UPJ) due to stone N20.1 Atrial fibrillation with RVR I48.91 Hydronephrosis of left kidney N13.30 UTI (urinary tract infection) N30.01 Hematuria presence: with hematuria Urinary tract infection type: acute cystitis Sepsis A41.9 Sepsis acute organ dysfunction status: unspecified Sepsis type: sepsis due to unspecified organism Acute kidney injury N17.9 Hypokalemia E87.6 Anemia, unspecified type D64.9 Anemia type: unspecified type Hypertension, unspecified type I10 Hypertension type: unspecified CHF (congestive heart failure) I50.9 Diabetes mellitus E11.9 Anxiety and depression F41.9; F32.A Morbid obesity with BMI of 40.0-44.9, adult E66.01; Z68.41 (4) UTI (urinary tract infection) Hematuria presence: with hematuria Urinary tract infection type: acute cystitis Qualified Code(s): N30.01 - Acute cystitis with hematuria (5) Sepsis Sepsis acute organ dysfunction status: unspecified Sepsis type: sepsis due to unspecified organism Qualified Code(s): A41.9 - Sepsis, unspecified organism (8) Anemia Anemia type: unspecified type Qualified Code(s): D64.9 - Anemia, unspecified (9) Hypertension Hypertension type: unspecified Qualified Code(s): I10 - Essential (primary) hypertension
[2024-03-30] MEDS ORDERED: bisacodyL 10 MG SUPP PR PRN (14:51)
--- NOTE | 2024-03-30 15:51 | Cardiology Progress Note ---
Date of Service March 30, 2024 Assessment & Plan (1) New onset atrial fibrillation: (2) Anemia: (3) History of stroke: (4) Hypertension: (5) Diastolic congestive heart failure: (6) Inadequate anticoagulation: Plan 1. Atrial fibrillation: It had appeared that her atrial fibrillation was of a relatively recent onset, however she now appears to have paroxysmal atrial fibrillation. On Multaq her atrial fibrillation burden is quite low, although her heart rate is somewhat fast during the arrhythmia. Trying to suppress the arrhythmia further might be difficult, we could use amiodarone but I would prefer to continue our current approach of Multaq with better rate control. I have therefore going to increase her metoprolol to 200 mg daily, I will give her metoprolol tartrate 100 mg tonight and metoprolol succinate 200 mg daily starting tomorrow. I would not go up higher than this but I do not think this will be too much and we can watch her on telemetry overnight. Even if she has brief episodes of atrial fibrillation that may be preferable to other options s uch as amiodarone, ablation or other antiarrhythmics. 2. Anemia: She has iron deficiency anemia, presumably due to blood loss, possibly urinary. Now with a stent in place she may be at less risk of further bleeding. 3. Stroke: She has a history of stroke, it is possible these were embolic from atrial fibrillation as I do not believe any other cause was clearly identified, although she does have left internal carotid artery stenosis so this is also a possible cause. She should probably be on platelet inhibitors and anticoagulants for the long run if possible. 4. Hypertension:. Her blood pressure has also been high, beta-blockade seems to be helping and I think her blood pressure can tolerate the higher dose. 5. Congestive heart failure: She has a history of congestive heart failure which based on her echocardiogram is presumably diastolic in nature. That is currently not an issue and beta-blockade may be helpful. 6. Anticoagulation: She seems to be doing well on Eliquis with no evidence of bleeding despite her urinary issues. She does not seem to be on a platelet inhibitor, given her history of stroke and her carotid disease it may be worth keeping her on that along with her anticoagulation. Admission and Anticipated Discharge Date Admission Date: March 22, 2024 Subjective Since I last saw her she had resumed sinus rhythm, but has had recurrent atrial fibrillation. Multaq was started on March 27, 2024 and may have had some benefit but she has now had recurrence of atrial fibrillation for about 4 hours in the evening of March 29, 2024. The heart rate was a little better controlled than prior, but still somewhat fast and she tells me she could feel her heart pounding. She would prefer not to have this sensation. She seems to be doing well on anticoagulation with no evidence of bleeding. She is tolerating 150 mg daily of metoprolol, she is on tartrate in divided doses. Physical Exam Physical Exam: Constitutional: Alert, cooperative and in no distress. HEENT: Unremarkable Neck: No jugular venous distention, carotid pulses are normal and equal bilaterally without bruits. Pulmonary: Clear to auscultation bilaterally. Cardiac: Regular rhythm with no murmur, gallop or rub. Abdomen: Soft, nontender with normal bowel sounds. Extremities: No edema. Distal pulses intact. Neurologic: No focal findings. Skin: No rash, ecchymoses or petechiae. Results & Data Vital Signs (Past 12 Hours) Vital Signs Temp Pulse Pulse Resp BP BP Pulse Ox 03/30/24 14:55 36.8 C 60 18 137/75 94 03/30/24 10:43 36.5 C 67 18 138/81 94 03/30/24 09:00 03/30/24 07:43 36.5 C 59 L 18 155/82 H 98 03/30/24 07:00 69 03/30/24 04:30 36.7 C 62 18 118/75 92 O2 Del Method O2 Flow Rate 03/30/24 14:55 Room Air 03/30/24 10:43 Room Air 03/30/24 09:00 Room Air 03/30/24 07:43 Nasal Cannula 2 03/30/24 07:00 03/30/24 04:30 Room Air Laboratory Results Comprehensive Metabolic Panel 03/30/24 Range/Units 05:55 Sodium 141 (136-145) mmol/L Potassium 4.0 (3.5-5.1) mmol/L Chloride 102 (98-107) mmol/L Carbon Dioxide 30 (21-32) mmol/L BUN 35 H (6-23) mg/dl Creatinine 1.27 H (0.6-1.2) mg/dl Glucose 126 H (70-99(Fasting)) mg/dl Calcium 9.7 (8.6-10.3) mg/dl Intake and Output 03/30/24 03/30/24 03/30/24 06:59 14:59 22:59 Intake Total 150 / 1080 480 / 480 Output Total 100 / 300 270 / 270 Balance 50 / 780 210 / 210 Intake: Oral 150 / 980 480 / 480 Output: Urine 100 / 300 270 / 270 Other: Weight 90.8 kg Weight Measurement Method Standing Scale Diagnostic Findings Telemetry: Predominantly sinus rhythm for the last 3 to 4 days, one 4-hour episode of atrial fibrillation with a somewhat rapid heart rate on the evening of March 29, 2024. At night her heart rate drops to about 50 bpm but that appears to be during sleep, does not go lower than that and that is for relatively brief periods of time. PG Care Time/CCT Total # of Minutes Spent Total Time Spent with Patient: Total time spent is greater than 50% in coordination of care (as documented) at patient's floor/unit and/or counseling patient: Coding Level of Care Code 94473 SUB INP/OBS CARE 3/50MIN Diagnoses New onset atrial fibrillation I48.91 Anemia, unspecified type D64.9 Anemia type: unspecified type History of stroke Z86.73 Hypertension, unspecified type I10 Hypertension type: unspecified Chronic diastolic congestive heart failure I50.32 Heart failure chronicity: chronic Inadequate anticoagulation Z51.81; Z79.01 (2) Anemia Anemia type: unspecified type Qualified Code(s): D64.9 - Anemia, unspecified (4) Hypertension Hypertension type: unspecified Qualified Code(s): I10 - Essential (primary) hypertension (5) Diastolic congestive heart failure Heart failure chronicity: chronic Qualified Code(s): I50.32 - Chronic diastolic (congestive) heart failure
[2024-03-30] MEDS: FAMOTIDINE 20MG IV PUSH 20 MG/5 ML SYR IV STA (16:23)
[2024-03-30] MEDS: SENNA 8.6 MG TAB PO PRN (16:24)
[2024-03-30] MEDS: METOPROLOL TARTRATE 100 MG TAB PO ONE (20:47)
[2024-03-31] MEDS: FUROSEMIDE 20 MG TAB PO SCH (09:09)
[2024-03-31] MEDS: METOPROLOL SUCC 50MG EXT REL TAB PO SCH (09:38)
[2024-03-31] MEDS: POLYETHYLENE (MIRALAX) 17 GM PACK PO PRN (13:19)
[2024-03-31] MEDS: LIDOCAINE 5% 1 PATCH TD STA (14:25)
[2024-03-31] MEDS: BACLOFEN 10 MG TAB PO ONE (14:25)
--- NOTE | 2024-03-31 20:41 | Hospitalist Progress Note ---
Date of Service March 31, 2024 Assessment & Plan (1) Obstruction of left ureteropelvic junction (UPJ) due to stone: Plan: large, >10mm, obstructing kidney stone at UPJ s/p ureteral stent placement by [facility] [place] [facility] - Dr Salazar - 03/22/24 urine flowing from left kidney was purulent at that time suggestive of left- sided pyelonephritis urine cx did not grow a specific pathogen but there was presumed infection previously on rocephin IV then changed to PO cefuroxime 03/26/24 would Rx for 2 weeks in total due to probable kidney involvement of infection today is day #10 of abx appreciate [facility] [place] Urology assistance topamax is contraindicated with kidney stones thus it has been stopped cont flomax daily (2) Hydronephrosis of left kidney: Plan: 2nd to large obstructing stone on left see #1 above (3) UTI (urinary tract infection): Plan: complicated, in the setting of obstructing kidney stone see above #1 (4) Sepsis: Plan: 2nd to complicated UTI resolved (5) Acute kidney injury: Plan: presenting Cr 1.78 2nd to sepsis and obstruction from her left sided kidney stone resolved repeat BMP am for stability cont lisinopril cont lasix no NSAIDs due to Eliquis use (6) Hypokalemia: Plan: replaced resolved (7) Anemia: Plan: 2nd to chronic blood loss (hematuria) Fe level undetectable Ferritin not low (77) - level likely as such due to acute phase reactant from UTI B12 level low --> replace Vitamin B12 1000mcg daily Folate wnl s/p 1 unit PRBCs while here repeat CBC am (8) Hypertension: Plan: Cont meto succ - increased to 200mg qam today by Dr Lee Cont lisinopril Cont flomax Is also on lasix, but would use such prn at discharge rather than standing (9) CHF (congestive heart failure): Plan: had mild acute diastolic CHF earlier in the stay now euvolemic likely due to rapid a.fib, IV fluids/blood, etc (10) Diabetes mellitus: Plan: a1c 5.4% could be artificially low due to chronic blood loss either way cont novolog SSI hold metformin (11) Anxiety and depression: Plan: cont all home meds EXCEPT topamax (relative contraindicated due to kidney stone) (12) Atrial fibrillation with RVR: Plan: presented to [facility] in such no prior history of a.fib has converted to NSR multiple times recently, but upon conversion back to a.fib her rate control is poor thus, currently on combination of meto succ 200mg daily + dronedarone 400mg BID currently on Eliquis 5mg BID for anticoagulation & tolerating such without hematuria will need to do zamorano check on the Eliquis (13) Morbid obesity with BMI of 40.0-44.9, adult: Plan: BMI 40 earlier this admission BMI fell to <40 following diuresis (14) Musculoskeletal chest pain: Plan: pain is reproducible on exam the pain that reproduces is the same pain she has had the last couple of days will try baclofen 5mg x 1 now lidoderm patches heating pad poor candidate for NSAIDs due to kidney issues and her Eliquis Plan abnormal LFTs- statin? other? hold stain repeat ast/alt in am tomorrow updated at bedside today dispo - home with HH/PT/OT tomorrow for d/c?? will discuss care with Dr Lee Admission and Anticipated Discharge Date Admission Date: March 22, 2024 Subjective tele overnight - no a.fib NSR pt overall feeling well eating decently no nausea or emesis does c/o pain over the chest - near the junction of the left sternal-costal margin eating and drinking doesn't bother it hurts to take a deep breath no dyspnea some of the pain is reproduced with moving/twisting and she feels a little discomfort in the mid back (about the same level) despite GERD meds she continues with the discomfort it has been continuous for about 2 days Review of Systems Review of Systems: gen - no fevers or chills CV - no orthopnea, no PND, no edema pulm - no cough GI - had BM on 03/29 Physical Exam Physical Exam: gen - sitting in chair, looks well neck - no JVD mouth - MMM heart - RRR, s1 s2, no obvious murmur lungs - CTA b/l, no rales or wheeze chest - reproducible chest wall discomfort - mid-sternal border on left at junction of sternum/ribs abd - soft ND BS+ ext - pulses 2+ b/l, no edema psych - a/o x 3 Results & Data Results & Data Vital Signs (Past 12 Hours) Vital Signs Temp Pulse Pulse Resp BP BP Pulse Ox 03/31/24 20:09 36.8 C 66 18 115/73 97 03/31/24 17:24 54 L 03/31/24 15:23 36.7 C 57 L 17 134/82 97 03/31/24 10:39 36.4 C L 64 17 158/81 H 91 O2 Del Method O2 Flow Rate 03/31/24 20:09 Nasal Cannula 2 03/31/24 17:24 03/31/24 15:23 Nasal Cannula 2 03/31/24 10:39 Room Air Laboratory Results Laboratory Results - last 24 hr 11:46 16:06 20:01 WBC RBC Hgb Hct MCV MCH MCHC RDW Std Deviation RDW Coeff of Nicolas Plt Count MPV Sodium Potassium Chloride Carbon Dioxide Anion Gap BUN Creatinine Est Cr Clr Drug Dosing eGFR BUN/Creatinine Ratio Glucose POC Glucose 103 H 110 H 127 H Calcium PG Care Time/CCT Total # of Minutes Spent Total Time Spent with Patient: Total time spent is greater than 50% in coordination of care (as documented) at patient's floor/unit and/or counseling patient: Coding Level of Care Code 98673 SUB INP/OBS CARE 2/35MIN Diagnoses Obstruction of left ureteropelvic junction (UPJ) due to stone N20.1 Hydronephrosis of left kidney N13.30 UTI (urinary tract infection) N30.01 Hematuria presence: with hematuria Urinary tract infection type: acute cystitis Sepsis A41.9 Sepsis acute organ dysfunction status: unspecified Sepsis type: sepsis due to unspecified organism Acute kidney injury N17.9 Hypokalemia E87.6 Anemia, unspecified type D64.9 Anemia type: unspecified type Hypertension, unspecified type I10 Hypertension type: unspecified CHF (congestive heart failure) I50.9 Diabetes mellitus E11.9 Anxiety and depression F41.9; F32.A Atrial fibrillation with RVR I48.91 Morbid obesity with BMI of 40.0-44.9, adult E66.01; Z68.41 Musculoskeletal chest pain R07.89 (3) UTI (urinary tract infection) Hematuria presence: with hematuria Urinary tract infection type: acute cystitis Qualified Code(s): N30.01 - Acute cystitis with hematuria (4) Sepsis Sepsis acute organ dysfunction status: unspecified Sepsis type: sepsis due to unspecified organism Qualified Code(s): A41.9 - Sepsis, unspecified organism (7) Anemia Anemia type: unspecified type Qualified Code(s): D64.9 - Anemia, unspecified (8) Hypertension Hypertension type: unspecified Qualified Code(s): I10 - Essential (primary) hypertension
--- NOTE | 2024-04-01 05:59 | Electrocardiogram Report ---
Test Reason : Blood Pressure : */* mmHG Vent. Rate : 56 BPM Atrial Rate : 56 BPM P-R Int : 180 ms QRS Dur : 72 ms QT Int : 466 ms P-R-T Axes : 50 12 61 degrees QTcB Int : 449 ms Sinus bradycardia Possible Anterior infarct , age undetermined Abnormal ECG When compared with ECG of 30-Mar-2024 04:58, T wave inversion no longer evident in Inferior leads Confirmed by Atilio Segura ([id number]) on 04/01/2024 5:58:52 AM Referred By: REFERRED SELF Confirmed By: Atilio Segura
[2024-04-01 06:45] LABS: Hematocrit (blood only) 32.7 % (37.0-47.0); Hemoglobin 10.1 g/dl (12.0-16.0); Mean Corpuscular Hemoglobin 26.9 pg (25.0-34.0); Mean Corpuscular Hgb Conc 30.9 g/dL (32.0-36.0); Mean Corpuscular Volume 87.2 fL (80.0-100.0); Mean Platelet Volume 9.2 fL (9.4-12.4); Platelet Count 409 K/uL (130-400); RDW Coefficient of Variation 17.6 % (11.5-14.5); RDW Standard Deviation 56.1 fL (36.4-46.3); Red Blood Count 3.75 M/uL (4.20-5.40); White Blood Count 4.88 K/ul (4.8-10.8)
[2024-04-01 06:47] LABS: BUN Creatinine Ratio 28.1 (10-20); Calcium 9.5 mg/dl (8.6-10.3); Creatinine Clr Calc Pharmacy 42.8 ml/min; Potassium 4.2 mmol/L (3.5-5.1)
[2024-04-01 10:28] LABS: Albumin Level 3.5 gm/dl (3.4-5.0); Bilirubin Direct 0.1 mg/dl (0-0.2); Bilirubin,Total 0.4 mg/dl (0.2-1.0); Total Protein 6.7 gm/dl (6.0-8.3)
--- NOTE | 2024-04-01 11:58 | Discharge Summary ---
Discharge Summary Date of Service date of admission - March 22, 2024 date of discharge - April 01, 2024 Principal Dx & Hospital Course #1 = Principal Diagnosis (1) Obstruction of left ureteropelvic junction (UPJ) due to stone: large, >10mm, obstructing kidney stone at UPJ seen by [facility], Dr Corey Salazar underwent cystoscopy with left ureteral stent placement on 03/22/24 urine flowing from left kidney was purulent at that time suggestive of left- sided pyelonephritis urine cx did not grow a specific pathogen but there was presumed infection was treated with rocephin IV then changed to PO cefuroxime on 03/26/24 she will take cefuroxime 250mg BID x 4 additional days at discharge she will see [facility] within 1-2 weeks of discharge to discuss definitive stone management with ultimate retrieval of the stent she will continue flomax daily of note - patient had been on topamax chronically prior to admission topamax is contraindicated with kidney stones thus it has been stopped (2) Hydronephrosis of left kidney: 2nd to large obstructing stone on left see #1 above (3) UTI (urinary tract infection): complicated, in the setting of obstructing kidney stone see above #1 (4) Atrial fibrillation with RVR: presented to the hospital in rapid a.fib no prior history of a.fib to her knowledge during the stay she converted to NSR multiple times, but upon conversion back to a.fib her rate control was very poor seen by [facility] combination of metoprolol succinate 200mg daily + dronedarone 400mg BID advised for the a.fib started on Eliquis 5mg BID for anticoagulation & tolerated such without hematuria for about 48 hours prior to discharge home she did NOT have any runs of a.fib patient will f/u with Dr Gabriel Lee, [facility], in about 3 weeks post-discharge (5) Sepsis: 2nd to complicated UTI resolved (6) Acute kidney injury: presenting Cr 1.78 2nd to sepsis and obstruction from her left sided kidney stone resolved creatinine at discharge was 1.3 lisinopril has been resumed at 20mg BID lasix can be used prn edema (7) Hypokalemia: replaced resolved (8) Anemia: 2nd to chronic blood loss (hematuria) Fe level undetectable Ferritin not low (77) - level likely as such due to acute phase reactant from UTI B12 level low at 219 Folate wnl s/p 1 unit PRBCs while hospitalized discharge hemoglobin was 10.1 she will take ferrous sulfate 325mg daily she will also take vitamin B12 1000mcg daily (9) Hypertension: Cont meto succinate 200mg qam Cont lisinopril Cont flomax (this is mainly for her ureteral stent/stone) (10) CHF (congestive heart failure): had mild acute diastolic CHF while here, likely due to rapid a.fib, IV Fluids, sepsis, etc. euvolemic at time of discharge cont metoprolol succinate cont lasix prn (11) Diabetes mellitus: Hba1c 5.4% could be artificially low due to chronic blood loss cont metformin 1000mg BID (12) Anxiety and depression: cont all home meds EXCEPT topamax (relative contraindicated due to kidney stone) (13) Morbid obesity with BMI of 40.0-44.9, adult: BMI 40 earlier this admission BMI fell to <40 following diuresis (14) Musculoskeletal chest pain: complained of central, reproducible chest wall pain troponin was negative used muscle relaxers, lidoderm patches, and a heating pad while here poor candidate for NSAIDs due to her current kidney issues and her Eliquis pain improved with the above Plan abnormal LFTs - 2nd statin? other? statin was held early in the stay her ast/alt ultimately normalized her atorvastatin was resumed at discharge patient is returning home with her at discharge she will have home health nursing as well as home PT/OT Notes For Next Care Provider f/u [facility] for stone/stent management Medication Changes From Visit 1. Multaq (dronedarone) 400mg BID 2. Metoprolol succinate 200mg daily 3. Hydrocodone-acetaminophen - 1 tab q8h prn pain 4. Lidoderm patches prn 5. Cefuroxime 250mg BID x 4 days 6. Resume methenamine 1gm BID once #5 is finished 7. Flomax 0.4mg daily 8. Ferrous sulfate 325mg daily 9. Vitamin B12 1000mcg daily 10. Eliquis 5mg BID STOP atenolol STOP prazosin STOP topamax Admission HPI Per Admitting Provider The patient is a 68-year-old female with a past medical history including hypertension, hyperlipidemia, muscle spasm, COPD, CHF, peripheral neuropathy, diabetes mellitus, anxiety with depression. She presents to the emergency department symptoms as noted above. Workup in the emergency department included CT scan of the abdomen pelvis which showed left hydronephrosis secondary to a 11 x 8 x 16 mm left UPJ stone. Patient was seen by urology while in the emergency department, and plan is to patient to have procedure in the a.m. tomorrow. Discharge Exam gen - sitting in chair, looks well neck - no JVD mouth - MMM heart - RRR, s1 s2, no obvious murmur lungs - CTA b/l, no rales or wheeze chest - reproducible chest wall discomfort - mid-sternal border on left at junction of sternum/ribs - resolved on discharge exam abd - soft ND BS+ NT; no HSM ext - pulses 2+ b/l, no edema psych - a/o x 3 Discharge Plan Discharge Items Patient Disposition: Home - Home Health Services Reason For Visit: SEPSIS DUE TO UTI,UPJ STONE,L HYDRONEPHROSIS Discharge Diagnosis: 1. sepsis due to urinary tract infection 2. left-sided kidney stone with placement of ureteral stent 3. atrial fibrillation 4. anemia - due to low iron and low vitamin B12 - discharge hemoglobin 10.1 5. hematuria (blood in urine) - due to #2 6. recurrent urinary tract infections 7. diabetes Activity: As commented below Activity Comment: light activities only; avoid strenuous activity Lifting: No more than 10 pounds Exercise/Sports: Wait until after follow-up appointment Non-emergency contact: Primary Care Provider, Drug Worker and Urologist Call non-emergency contact if: you have any medication questions, your symptoms worsen and you have a fever Follow-up/Referrals: Gabriel Lee MD [Physician] - 04/20/24 12:00 pm (cardiology / afib follow-up ) Yamileth Chen CFidelR.N.P [Primary Care Provider] - 04/05/24 2:00 pm (Hospital follow up scheduled April 05 at 2:00 with Niko Oreilly) Corey Salazar MD [Physician] - 04/06/24 9:00 am (Hospital follow up scheduled April 06 at 9:00. Office asked us to remind Pt that [facility] [place] [facility] [place] [facility] at [place] location on the 3rd floor. ) Diet: Carb Consistent or DM2 and Heart Healthy Addtl Attending Provider Instructions: Ms Lynam, You were treated for a left sided kidney stone. This stone was blocking the proper flow of urine from the left kidney down to the bladder. Stent was placed to stabilize the stone and let your urine drain. The kidney stone is likely a main reason why you have been getting urinary tract infections over the last few months. You were treated for UTI with IV then oral antibiotics. You were found to have a heart arrhythmia called atrial fibrillation (see handouts). Sometimes this type of heart beat goes too fast, so medication is needed to control it. You are now on a combination of dronedarone and metoprolol succinate to control the a.fib. These medicines are working well. A.fib can increase the risk of stroke so blood thinner is recommended. You are now on a blood thinner called "Eliquis." We discussed the risks and benefits of anticoagulation (blood thinner), including the risks of gastrointestinal bleeding - seek medical attention if you have black/tarry or bloody stool There is also a very small but real risk of intracranial hemorrhage - related to head trauma or bleeding-type stroke, that can be life threatening. Call 911 if you have altered mental status or symptoms of stroke (weakness or numbness of face/arm/leg, trouble speaking or understanding, trouble with walking/balance. We recommended longterm stay for rehab to increase your mobility and safety with your stairs, however, you preferred home and home health PT and OT have been ordered for you. Recommendations - 1. for your atrial fibrillation take - * dronedarone 400mg twice daily with meals * metoprolol succinate 200mg once daily each morning * Eliquis 5mg twice daily 2. for your anemia (low red blood cells) take - * weho-xod-nhswioy vitamin B12 - 1000mcg (1mg) once daily x 6 months; your vitamin B12 level was 219 * nrpb-adb-rukntad ferrous sulfate (iron) - 325mg once daily x 3 months 3. STOP your atenolol 4. STOP your topamax (topiramate) - this medicine is not recommended when someone has kidney stones 5. STOP your prazosin 6. HOLD your methanamine for 5 days; you can resume this at that time 7. antibiotics for your urinary infection - * cefuroxime - 250mg twice daily x 4 days, first dose later today 8. start tamsulosin 0.4mg once daily; this is for your urinary stent as well as your high blood pressure 9. may use lidoderm patches - up to 2 at a time on your skin - for 12 hours, remove for 12 hours; these can be used for aches/pains (over joints, back, neck, chest wall, etc) 10. since you are now taking Eliquis blood thinner do not take the following xtpu-ffw-rfrvlyw anti-inflammatory pills - * no aspirin * no motrin * no ibuprofen * no aleve * no naprosyn * also please STOP your meloxicam (this is a prescription strength anti- inflammatory that you may have been taking in the past) Gqnx-fmj-jrgnmbi tylenol IS OK to take with Eliquis. Tylenol does not cause or contribute to bleeding. 11. Lastly, please check your weight every morning. If your weight rises more than 2-3 pounds over a 1-2 day period this may be a sign of fluid/water build-up from heart issues. If you have fluid weight gain you can take your furosemide 20mg as needed. You can also take your furosemide water pill as needed for swelling/edema of your legs & feet. It was a pleasure taking care of you in the hospital! -Dr Mccollum Addtl Machine Bobbin Winder Provider Instructions: Anticoagulant (Blood Thinner) Medication Instructions: Your atrial fibrillation condition is typically treated with an anticoagulant. Anticoagulants will thin your blood to help prevent blood clot formation in your heart. Your blood thinner is Eliquis. * You should take your medication exactly as directed. * Never skip a dose. * Never take a double dose. If you miss a dose, take it as soon as you remember. Call your Primary Care doctor if you experience any of the following: * Chest Pain * Sudden Shortness of Breath * Rapid or pounding heart beat * Fainting * Dizziness * Cough with blood or bloody sputum * Sweating more than normal * Bruises * Heavy or uncontrolled bleeding * Blood in your urine, stool or vomit * Black or tarry stools * Heavy nose bleeding Pending Studies at Discharge: No Stand-Alone Forms: My [employer], Smoking Cessation Medications and DC Order Prescriptions: New Eliquis 5 mg tablet 5 mg PO BID Qty: 60 5RF tamsulosin 0.4 mg Capsule 0.4 mg PO QAM Qty: 30 2RF ferrous sulfate 325 mg (65 mg iron) Tablet,Delayed Release (Dr/Ec) 325 mg PO DAILY Qty: 1 0RF Rx Instructions: purchase ibvh-ijc-xakkqwa Multaq 400 mg Tablet 400 mg PO BIDM Qty: 60 5RF Rx Instructions: for atrial fibrillation lidocaine [Lidoderm] 5 % adhesive patch,medicated 2 patch topical DAILY Qty: 30 0RF Rx Instructions: leave on most painful area for up to 12 hrs; remove for 12 hours. cyanocobalamin (vitamin B-12) 1,000 mcg tablet 1,000 mcg PO DAILY Qty: 90 1RF Rx Instructions: purchase boyy-tul-ymqmfcs metoprolol succinate 200 mg tablet extended release 24 hr 200 mg PO DAILY Qty: 30 2RF Rx Instructions: for high blood pressure & atrial fibrillation hydrocodone-acetaminophen 5-325 mg tablet 1 tab PO Q8H PRN (Reason: pain) Qty: 14 0RF Continued sertraline 100 mg tablet 100 mg PO BID lamotrigine 25 mg tablet 50 mg PO QAM trazodone 150 mg tablet 300 mg PO HS hydrocodone-acetaminophen 10-325 mg tablet 1 tab PO Q12 PRN (Reason: Pain) aripiprazole 20 mg tablet 20 mg PO HS atorvastatin 80 mg tablet 80 mg PO QAM ondansetron HCl 4 mg tablet 4 mg PO Q8 PRN (Reason: Nausea) metformin 500 mg tablet extended release 24 hr 1,000 mg PO BID cyclobenzaprine 5 mg tablet 5 mg PO HS PRN (Reason: Muscle Spasm) lisinopril 20 mg tablet 20 mg PO BID ezetimibe 10 mg tablet 10 mg PO HS Trelegy Ellipta 200-62.5-25 mcg blister with device 1 ea INHALATION QAM furosemide 20 mg tablet 20 mg PO DAILY PRN (Reason: swelling) Qty: 0 0RF Rx Instructions: for weight gain of more than 2-3 pounds over 1-2 days OR swelling of legs Held methenamine hippurate 1 gram tablet 1 g PO AMHS Hold Instructions: HOLD while taking antibiotics (cefuroxime); may resume in 5 days Discontinued furosemide 40 mg tablet 40 mg PO QAM meloxicam 15 mg tablet 15 mg PO QAM amlodipine 5 mg tablet 10 mg PO QAM Rx Instructions: 2 tablet dose prazosin 2 mg capsule 2 mg PO HS topiramate 50 mg tablet 50 mg PO AMHS hydralazine 25 mg tablet 25 mg PO AMHS atenolol 25 mg tablet 25 mg PO BID Discharge Orders: Discharge Order (Routine); Ordered 04/01/24 Ordered By: Iban Monroy/Other Patient Handouts: Having a Ureteral Stent, Understanding Kidney Stones, Preventing Kidney Stones, AFib Preventing Stroke, AFib Admission Data Admit Date/Time: 03/22/24 00:18 Attending Provider: Iban Mccollum Admit Provider: Raheel Mckeon Primary Care Provider: Yamileth Chen Other Providers: EVIIVO; Sunny Goldsmith; Corey Salazar; Talon Ferreira V.; Gabriel Lee; Vince Peterson; Meir Turcios; Atilio Segura Other Interventions: Discharge Summary Assessment (RN) Last Done: 04/01/24 12:10 Hospital Stay Data Consultations [facility] PT, OT Procedures Performed Operation Date: 03/22/24 12:00 Actual Procedures Cystoscopy, Left: Retrograde Pyelogram, LEFT Stent Placement - Corey Salazar MD Diagnostic Imagining Performed Abdomen/Pelvis CT 03/21/24 21:40 Exam(s): CT ABDOMEN + PELVIS Without Contrast EXAM: CT Abdomen and Pelvis Without Intravenous Contrast CLINICAL HISTORY: abd pain. TECHNIQUE: Axial computed tomography images of the abdomen and pelvis without intravenous contrast. CTDI is 27.94 mGy and DLP is 1314.45 mGy-cm. Automated exposure control was utilized for the study. A dose lowering technique was utilized adhering to the principles of ALARA. COMPARISON: No relevant prior studies available. FINDINGS: Lung bases: Mild left basilar atelectasis. Mild cardiomegaly. ABDOMEN: Liver: Large 24 cm length. Gallbladder and bile ducts: Unremarkable. No calcified stones. No ductal dilation. Pancreas: Unremarkable. No ductal dilation. Spleen: Unremarkable. No splenomegaly. Adrenals: Unremarkable. No mass. Kidneys and ureters: Bilateral renal scarring. Multiple bilateral nonobstructing renal calculi, left greater than right. No right hydronephrosis or hydroureter. Mild left hydronephrosis with obstructing calculus at the left ureteral pelvic junction 11 x 8 x 16 mm. Stomach and bowel: Fat-containing periumbilical hernia. No obstruction or ileus. No evidence for diverticulitis. PELVIS: Appendix: Appendix not identified. No secondary evidence for appendicitis. Bladder: Partially contracted. No stones. Reproductive: Uterus and ovaries are grossly unremarkable. ABDOMEN and PELVIS: Intraperitoneal space: No free air. No free fluid. Bones/joints: No acute fracture. Degenerative changes of the spine. Soft tissues: Unremarkable. Vasculature: Atherosclerotic vascular calcifications. No abdominal aortic aneurysm. Lymph nodes: Unremarkable. No enlarged lymph nodes. IMPRESSION: Left hydronephrosis with obstructing calculus at ureteropelvic junction. Multiple additional bilateral renal calculi. Renal scarring. Collapsed urinary bladder. Hepatomegaly. Senescent changes. Electronically signed by: Jomar Brothers M.D. 03/21/24 23:21 PM Chest X-Ray 03/21/24 21:41 Exam(s): XR CXR 1 VIEW EXAM: XR Chest, 1 View CLINICAL HISTORY: fevers. TECHNIQUE: Frontal view of the chest. COMPARISON: No relevant prior studies available. FINDINGS: Moderate cardiomegaly. Atherosclerotic calcifications of the aortic arch. Mild pulmonary vascular congestion. No focal of which appeared no pleural effusion or pneumothorax. Bones are unremarkable. IMPRESSION: Cardiomegaly. CHF. Electronically signed by: Jomar Brothers M.D. 03/21/24 23:23 PM Retrograde Pyelogram 03/22/24 00:00 FL retrograde includes kub CLINICAL HISTORY: ADD ON STENT PLACEMENT LEFTleft-sided cystourethrogram COMPARISON STUDY: CT 03/21/2024 FLUOROSCOPY TIME: 12.1 seconds FLUOROSCOPY IMAGES: 1 EXPOSURE DOSE: 6.50 mGy FINDINGS: Proximal portion of a left ureteral stent is in satisfactory position. The distal portion of the stent was not imaged. IMPRESSION: Fluoroscopic assistance as above. ACT 112: Negative or not required by law. Electronically signed by: Jayden Hwang M.D. 03/22/2024 11:27 AM Carotid Doppler Study 03/22/24 13:59 Exam(s): US CAROTID EXAM: US Duplex Bilateral Extracranial Arteries CLINICAL HISTORY: Reason for exam: history of stroke 5 and 10 years ago. TECHNIQUE: Real-time duplex ultrasound scan of the extracranial arteries integrating B-mode two-dimensional vascular structure, Doppler spectral analysis and color flow Doppler imaging. COMPARISON: None FINDINGS: Right common carotid artery: Unremarkable. No occlusion or significant stenosis on color flow and spectral Doppler imaging. Right internal carotid artery: Peak systolic velocity in the right ICA measures 82.1 cm/s. No occlusion or significant stenosis on color flow and spectral Doppler imaging. Right external carotid artery: Unremarkable. No occlusion or significant stenosis on color flow and spectral Doppler imaging. Right vertebral artery: Unremarkable. Antegrade flow. Right ICA/CCA ratio: Unremarkable. Within normal limits. Left common carotid artery: Unremarkable. No occlusion or significant stenosis on color flow and spectral Doppler imaging. Left internal carotid artery: Peak systolic velocity in the left ICA measures 184.2 cm/s. No occlusion or significant stenosis on color flow and spectral Doppler imaging. Left external carotid artery: Unremarkable. No occlusion or significant stenosis on color flow and spectral Doppler imaging. Left vertebral artery: Unremarkable. Antegrade flow. Left ICA/CCA ratio: Unremarkable. Within normal limits. Lymph nodes: Unremarkable. No lymphadenopathy. CAROTID STENOSIS REFERENCE USING SRU CRITERIA: Mild - <50% stenosis. ICA PSV is less than 125 cm/second and plaque or intimal thickening is visible. Moderate - 50-69% stenosis. ICA PSV is 125 to 230 cm/second and plaque is visible. Severe - 70-94% stenosis. ICA PSV is more than 230 cm/second and visible plaque with lumen narrowing is seen. Near occlusion - 95-99% stenosis. ICA PSV is variable and significant plaque with luminal narrowing is seen. Occluded - 100% stenosis. No flow identified. IMPRESSION: 1. No hemodynamically significant stenosis in the right ICA. 2. 50-69% stenosis in the left ICA. 3. Normal antegrade flow in bilateral vertebral arteries. Electronically signed by: Yung Solorzano M.D. 03/23/24 01:[address] 03/26/24 14:26 CT head/brain wo con CLINICAL HISTORY: 68 years-old Female with hit head, anticoagulated. Acute head trauma TECHNIQUE: Multiple axial CT images of the head were obtained without contrast. A dose lowering technique was utilized adhering to the principles of ALARA. CT DOSE: 625.8 mGy.cm COMPARISON: None. FINDINGS: No acute intracranial hemorrhage, midline shift, intracranial mass, hydrocephalus, territorial ischemia or abnormal extra-axial collection. Involutional changes with probable chronic microvascular ischemic disease. Cerebrovascular calcifications. The calvarium is intact. The paranasal sinuses, mastoid air cells, and middle ear cavities are clear. IMPRESSION: No acute intracranial abnormality or calvarial fracture. ACT 112: Negative or not required by law. The above report was generated using voice recognition software. It may contain grammatical, syntax or spelling errors. Electronically signed by: Jayden Hwang M.D. 03/26/2024 3:30 PM Chest X-Ray 03/26/24 17:36 INDICATION: Chest pain. TECHNIQUE: Frontal radiograph of the chest. COMPARISON: 03/21/2024. FINDINGS: Cardiopulmonary. Mild pulmonary vascular congestion. No infiltrate, pleural effusion or pneumothorax. No acute osseous abnormality evident. IMPRESSION: Mild pulmonary vascular congestion. Electronically signed by Kunal Arthur 03-26-2024 6:19 PM Pending Results Patient Have Any Pending Studies at Discharge: No Discharge Instructions Given to Patient (Per Discharging Provider) Fredy Medrano were treated for a left sided kidney stone. This stone was blocking the proper flow of urine from the left kidney down to the bladder. Stent was placed to stabilize the stone and let your urine drain. The kidney stone is likely a main reason why you have been getting urinary tract infections over the last few months. You were treated for UTI with IV then oral antibiotics. You were found to have a heart arrhythmia called atrial fibrillation (see handouts). Sometimes this type of heart beat goes too fast, so medication is needed to cont rol it. You are now on a combination of dronedarone and metoprolol succinate to control the a.fib. These medicines are working well. A.fib can increase the risk of stroke so blood thinner is recommended. You are now on a blood thinner called "Eliquis." We discussed the risks and benefits of anticoagulation (blood thinner), including the risks of gastrointestinal bleeding - seek medical attention if you have black/tarry or bloody stool There is also a very small but real risk of intracranial hemorrhage - related to head trauma or bleeding-type stroke, that can be life threatening. Call 911 if you have altered mental status or symptoms of stroke (weakness or numbness of face/arm/leg, trouble speaking or understanding, trouble with walking/balance. We recommended longterm stay for rehab to increase your mobility and safety with your stairs, however, you preferred home and home health PT and OT have been ordered for you. Recommendations - 1. for your atrial fibrillation take - * dronedarone 400mg twice daily with meals * metoprolol succinate 200mg once daily each morning * Eliquis 5mg twice daily 2. for your anemia (low red blood cells) take - * leai-nug-qmywtea vitamin B12 - 1000mcg (1mg) once daily x 6 months; your vitamin B12 level was 219 * zicp-cfw-xnmdodj ferrous sulfate (iron) - 325mg once daily x 3 months 3. STOP your atenolol 4. STOP your topamax (topiramate) - this medicine is not recommended when someone has kidney stones 5. STOP your prazosin 6. HOLD your methanamine for 5 days; you can resume this at that time 7. antibiotics for your urinary infection - * cefuroxime - 250mg twice daily x 4 days, first dose later today 8. start tamsulosin 0.4mg once daily; this is for your urinary stent as well as your high blood pressure 9. may use lidoderm patches - up to 2 at a time on your skin - for 12 hours, remove for 12 hours; these can be used for aches/pains (over joints, back, neck, chest wall, etc) 10. since you are now taking Eliquis blood thinner do not take the following qcdq-rvy-rymgdbp anti-inflammatory pills - * no aspirin * no motrin * no ibuprofen * no aleve * no naprosyn * also please STOP your meloxicam (this is a prescription strength anti- inflammatory that you may have been taking in the past) Zobp-oyt-nngnvei tylenol IS OK to take with Eliquis. Tylenol does not cause or contribute to bleeding. 11. Lastly, please check your weight every morning. If your weight rises more than 2-3 pounds over a 1-2 day period this may be a sign of fluid/water build-up from heart issues. If you have fluid weight gain you can take your furosemide 20mg as needed. You can also take your furosemide water pill as needed for swelling/edema of your legs & feet. It was a pleasure taking care of you in the hospital! -Dr Mccollum Total Time Total Time Spent Total Time Spent (In Minutes): 45 Coding Level of Care Code 14480 INP/OBS DISCH >30 MIN Diagnoses Obstruction of left ureteropelvic junction (UPJ) due to stone N20.1 Hydronephrosis of left kidney N13.30 UTI (urinary tract infection) N30.01 Hematuria presence: with hematuria Urinary tract infection type: acute cystitis Atrial fibrillation with RVR I48.91 Sepsis A41.9 Sepsis acute organ dysfunction status: unspecified Sepsis type: sepsis due to unspecified organism Acute kidney injury N17.9 Hypokalemia E87.6 Anemia, unspecified type D64.9 Anemia type: unspecified type Hypertension, unspecified type I10 Hypertension type: unspecified CHF (congestive heart failure) I50.9 Diabetes mellitus E11.9 Anxiety and depression F41.9; F32.A Morbid obesity with BMI of 40.0-44.9, adult E66.01; Z68.41 Musculoskeletal chest pain R07.89 Home Health Attestation I certify that this patient is under my care and that I, or a physicians assistant service manager working with me, had a face to-face encounter that meets the home health [id number] encounter requirements with this patient. The encounter with the patient was in whole, or in part, for the following medical condition, which is the primary reason for home health care (list medical condition): sepsis- hydronephrosis I certify that, based on my findings, the following services are medically necessary home health services: My clinical findings support the need for the above services because: OT Assess ADL Status and Restore Function w ADLs PT Assessment for Endurance / Balance / Strength PT Eval for Safety and Mobility PT Eval for Safety, Gait Training, Assistive Devices PT Gait and Balance Training, Strengthening and Safety Skilled Nsg Assessment Further, I certify that my clinical findings support that this patient is homebound (i.e. absences from home require considerable and taxing effort and are for medical reasons or scientologist services or infrequently or of short duration when for other reasons) because: Supportive Aid - Walker Transportation Assistance/Unable to Leave Home Unassisted Certification for Home Health Services: Based on the above findings, I certify that this patient is confined to the home and needs intermittent longterm care, physical therapy and/or speech therapy or continues to need occupational therapy. The patient is under my care, and I have initiated the establishment of the plan of care. This patient will be followed by a physician who will periodically review the plan of care.
[2024-04-01 11:59] VITALS: PULSE 52; RESP 19; TEMP 97.9; O2SAT 92
[2024-04-01 12:12] VITALS: BP 147/84
== END 2024-04-01 13:50 | disposition home health service (06) | DRG 853 ==
LOC: ED 20:24 → 2E 03-22 00:18 → SUATTDRO 03-22 00:18 → 2E 03-22 01:50 → 2N 03-25 15:47 → 2E 03-26 10:52 → 2W 03-29 12:00 → 4W 03-29 20:00

== ENCOUNTER 2024-05-30 18:48 | Inpatient (IN) ==
--- NOTE | 2024-05-30 19:37 | Emergency Department Note ---
Impression & Plan Acute UTI Admission ED Provider Note HPI: History obtained from patient. The patient is a 68-year-old female who presents the emergency department chief complaint of left flank pain. Patient states that she recently had a ureteral stent exchange performed on 05/[address] Salazar. Patient states today she was unable to urinate and she had some worsening pain in the area of her left flank. On arrival here to the ED the patient is hemodynamically stable, she is in mild distress secondary to left flank pain but otherwise is saturating well on room air. Patient denies any vomiting, denies any chest pain or shortness of breath. ROS: - Per HPI Differential Diagnosis: Urinary tract infection, hydronephrosis with obstructed stent, pyelonephritis, kidney stone, amongst other potential pathologies. *Outpatient medications and allergy history reviewed. 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 Lab work shows a leukocytosis of 15.7, hemoglobin is stable 11.2, platelet count is normal, CMP does not show any evidence of any critical findings, creatinine is mildly elevated at 1.26, there is no transaminitis, lipase is normal, troponin is negative, EKG per my interpretation shows normal sinus rhythm with a rate of 70. Urinalysis is concerning for infection, urine nitrite is positive, there is trace leukocyte esterase, no pyuria, there is 3+ blood. Will send for culture. Patient did have urinary retention here in the ED and therefore So catheter was placed with greater than 900 cc of blood colored urine drained into the bag. CT imaging of the abdomen pelvis was obtained and is concerning for cystitis, urinary stent does appear to be in place without obstruction. There is thickening of the bladder concerning for possible ascending infection. Patient was covered with IV ceftriaxone here in the ED and blood cultures were drawn. Patient states she did recently restart her Eliquis and this is likely the source of the hematuria which likely was the source of the urinary retention. I discussed the above findings with the on-call midlevel provider for the urology service, Sixto Curtis PA-C, and urology consultation was placed. [facility] hospitalist service was consulted for admission. Patient was placed for admission in stable condition. Consultants/Discussions held with other healthcare providers: -Urology, Dr. Goldsmith -Hospitalist, Dr. Mckeon Disposition discussion held by myself with: -Patient and patient spouse at the bedside Diagnosis: 1. Urinary tract infection, acute 2. Status post ureteral stent exchange, acute 3. Left-sided flank pain, acute 4. Hematuria with urinary retention/obstruction, acute Disposition: Admission Zaki Randle DO Emergency Medicine Past Med/Surg History Problem List (Updated 05/31/24 @ 00:05 by Zaki Randle DO) Acute UTI (Acute) Abnormal CT scan, gallbladder Abdominal pain On home oxygen therapy 2.5-3L HS and PRN daytime COPD (chronic obstructive pulmonary disease) on home O2 Acute kidney injury Hepatomegaly Cholecystitis without cholelithiasis Leukocytosis Urinary tract infection Encounter for pre-operative examination Dizziness Anticoagulant long-term use Paroxysmal atrial fibrillation Hypomagnesemia Morbid obesity with BMI of 40.0-44.9, adult History of stroke Diastolic congestive heart failure Diabetes mellitus Anemia Obstruction of left ureteropelvic junction (UPJ) due to stone Hydronephrosis of left kidney Medical History On home oxygen therapy 2.5-3L HS and PRN daytime Obesity Carotid stenosis Per 03/22/24 carotid doppler - 50-69% stenosis in the left ICA. Hx: UTI (urinary tract infection) (03/2024) Treated as inpatient with abxs Anemia (03/2024) - per records - iron deficiency anemia, presumably due to blood loss, possibly urinary (did have urinary stent placed) - 1 unit of PRBC given during 03/2024 hospitalization - on PO iron and Vit B12 Hydronephrosis of left kidney Sleep apnea can't tolerate cpap; she does use 2.5-3L O2 at night COPD (chronic obstructive pulmonary disease) on home O2 Hx of sepsis (03/2024) due to kidney stone, admit to [facility] x 10 days Hx of migraines Diabetes mellitus Diastolic congestive heart failure History of stroke (2019) x 2, ~ 5 years ago, reports "trouble walking and left side weaker" - uses a cane History of postoperative nausea and vomiting Paroxysmal atrial fibrillation (03/2024) - recent diagnosis 03/2024, no cardioversion, started on eliquis; saw [facility] [place] 04/26/24 - started on Eliquis, Multaq and metoprolol by cardio while inpatient; per Cardio visit 04/26/24, remain on current regimen Anxiety and depression Hypertension Surgical History Hx of colonoscopy S/P cystoscopy with ureteral stent placement (03/2024) multiple; most recent 04/19/24: GA: LMA#4 History of lithotripsy 2-3 x Hx of partial thyroidectomy "thought it was cancerous but it wasn't" Social History Smoking Status: Former smoker Tobacco Type: Cigarettes Cigarettes Per Day: quit 17 years ago; Second Hand Exposure: No; Do You Dip or Chew Tobacco: No; Hx Alcohol Use: No Hx Substance Use: Yes Substance Use Type Other:: marijuana use few times weekly Preferred Language: Italian Communication Ability: Effective Visual Impairment: No Limitations Inside Parts Sales Required: No Beliefs That Will Affect Care: None Current Living Situation: Alone Current Living Situation Comment: lives at home either alone or with () Feels Safe at Home: Yes Assistive Devices: Cane, Denture - Upper, Denture - Lower, Oxygen - at Night and Oxygen - Continuous Allergies Allergies Allergy/AdvReac Type Severity Reaction Status Date / Time No Known Allergies Allergy Verified 05/26/24 07:12 Home Meds Home Medications Medication Instructions Recorded Confirmed aripiprazole 20 mg tablet (Abilify) 20 mg PO HS 03/21/24 05/26/24 atorvastatin 80 mg tablet (Lipitor) 80 mg PO QAM 03/21/24 05/26/24 cyclobenzaprine 5 mg tablet 5 mg PO HS PRN Muscle Spasm 03/21/24 05/26/24 ezetimibe 10 mg tablet (Zetia) 10 mg PO HS 03/21/24 05/26/24 fluticasone fur. 200 mcg-umeclid 1 ea inhalation QAM 03/21/24 05/26/24 62.5 mcg-vilant 25 mcg inhalat.powder (Trelegy Ellipta) lamotrigine 25 mg tablet (Lamictal) 50 mg PO QAM 03/21/24 05/26/24 lisinopril 20 mg tablet 20 mg PO BID 03/21/24 05/26/24 metformin 500 mg tablet,extended 1,000 mg PO BID 03/21/24 05/26/24 release 24 hr methenamine hippurate 1 gram tablet 1 g PO AMHS 03/21/24 05/26/24 ondansetron HCl 4 mg tablet 4 mg PO Q8 PRN Nausea/Vomiting 03/21/24 05/26/24 sertraline 100 mg tablet 100 mg PO BID 03/21/24 05/26/24 trazodone 150 mg tablet 300 mg PO HS 03/21/24 05/26/24 cyanocobalamin (vitamin B-12) 1,000 mcg PO QAM 04/13/24 05/26/24 1,000 mcg tablet ferrous sulfate 325 mg (65 mg 325 mg PO QAM 04/13/24 05/26/24 iron) tablet,delayed release furosemide 20 mg tablet (Lasix) 20 mg PO DAILY PRN swelling 04/13/24 05/26/24 tamsulosin 0.4 mg capsule (Flomax) 0.4 mg PO QAM 04/13/24 05/26/24 dronedarone 400 mg tablet (Multaq) 400 mg PO BID 04/30/24 05/26/24 Previous Rx's Medication Instructions Recorded apixaban 5 mg tablet (Eliquis) 5 mg PO BID #60 tabs 03/31/24 lidocaine 5 % topical patch 2 patch topical DAILY #30 ea 04/01/24 (Lidoderm) metoprolol succinate 200 mg 200 mg PO DAILY #30 tabs 04/26/24 tablet,extended release 24 hr sulfamethoxazole 800 1 tab PO BID #14 tabs 05/30/24 mg-trimethoprim 160 mg tablet (Bactrim DS) Results & Data (ED) Vital Signs Vital Signs - 24 hr 05/30/24 19:01 05/30/24 20:30 05/30/24 20:36 Temperature 36.5 C Temperature Source Temporal Artery Scan Pulse Rate 73 62 Pulse Rate [Apical] 64 Respiratory Rate 16 18 Blood Pressure 160/78 H Blood Pressure [Right Arm] 133/59 L Blood Pressure Mean 105 Blood Pressure Mean [Right Arm] 83 Pulse Oximetry 93 95 Oxygen Delivery Method Room Air Nasal Cannula Oxygen Flow Rate 2 Sepsis Recent Fever Within 48 Hours No Sepsis New/Unexplained Change in Mental Status No Sepsis Action Taken by Nursing No Action Required 05/30/24 22:00 Temperature Temperature Source Pulse Rate Pulse Rate [Apical] 69 Respiratory Rate 18 Blood Pressure Blood Pressure [Right Arm] 161/81 H Blood Pressure Mean Blood Pressure Mean [Right Arm] 107 Pulse Oximetry 95 Oxygen Delivery Method Nasal Cannula Oxygen Flow Rate 2 Sepsis Recent Fever Within 48 Hours Sepsis New/Unexplained Change in Mental Status Sepsis Action Taken by Nursing Laboratory Data 05/30/24 19:18 05/30/24 19:18 Lab Results 05/30/24 05/30/24 Range/Units 19:18 Unknown WBC 15.71 H (4.8-10.8) K/ul RBC 4.23 (4.20-5.40) M/uL Hgb 11.2 L (12.0-16.0) g/dl Hct 35.9 L (37.0-47.0) % MCV 84.9 (80.0-100.0) fL MCH 26.5 (25.0-34.0) pg MCHC 31.2 L (32.0-36.0) g/dL RDW Std Deviation 51.8 H (36.4-46.3) fL RDW Coeff of Nicolas 16.9 H (11.5-14.5) % Plt Count 361 (130-400) K/uL MPV 9.6 (9.4-12.4) fL Immature Gran % (Auto) 0.6 % Neut % (Auto) 87.5 % Lymph % (Auto) 8.0 % Foard % (Auto) 3.4 % Eos % (Auto) 0.2 % Baso % (Auto) 0.3 % Neut # (Auto) 13.75 H (1.40-6.50) K/uL Lymph # (Auto) 1.26 (1.20-3.40) K/uL Foard # (Auto) 0.53 (0.11-0.59) K/uL Eos # (Auto) 0.03 (0.00-0.50) K/uL Baso # (Auto) 0.05 (0.00-0.20) K/uL Immature Gran # (Auto) 0.09 (0.01-0.20) K/uL PT 11.3 (9.0-12.0) Seconds INR 1.0 (0.9-1.1) Sodium 141 (136-145) mmol/L Potassium 4.0 (3.5-5.1) mmol/L Chloride 102 (98-107) mmol/L Carbon Dioxide 29 (21-32) mmol/L Anion Gap 10 (3-11) BUN 17 (6-23) mg/dl Creatinine 1.26 H (0.6-1.2) mg/dl Est Cr Clr Drug Dosing Not Reportable eGFR 46.79 BUN/Creatinine Ratio 13.5 (10-20) Glucose 129 H (70-99(Fasting)) mg/dl Calcium 9.6 (8.6-10.3) mg/dl Total Bilirubin 0.4 (0.2-1.0) mg/dl AST 15 (13-39) U/L ALT 13 (7-52) U/L Alkaline Phosphatase 61 (34-104) U/L Troponin I High Sens 7.1 (0-14) pg/ml Total Protein 7.1 (6.0-8.3) gm/dl Albumin 4.3 (3.4-5.0) gm/dl Globulin 2.8 (2.5-4.0) gm/dl Albumin/Globulin Ratio 1.5 (0.9-2) Lipase 15 (11-82) U/L Urine Color Red Urine Appearance Cloudy A (Clear) Urine pH 7.0 (4.5-7.5) Ur Specific [place] 1.025 (1.000-1.030) Urine Protein 3+ H (Negative) Urine Glucose (UA) Negative (Negative) Urine Ketones Negative (Negative) Urine Blood 3+ H (Negative) Urine Nitrite Positive A (Negative) Urine Bilirubin Negative (Negative) Urine Urobilinogen Negative (Negative) Ur Leukocyte Esterase Trace H (Negative) Urine RBC >20 H (0-2) /hpf Urine WBC 0-5 (0-5) /hpf Ur Epithelial Cells 0-2 (0-2) /hpf Urine Bacteria None Seen (None Seen) Administered Medications Discontinued Medications Ceftriaxone Sodium (Rocephin) 2,000 mg in 50 mls @ 100 mls/hr IV NOW STA Stop: 05/30/24 21:05 Last Infusion: 05/30/24 21:58 Dose: Infused Documented By: Admin: 05/30/24 21:31 Dose: 100 mls/hr Documented By: NNEKA Morphine Sulfate (Morphine Sulfate 4 Mg/Ml 1 Ml Carp\\Vial) 4 mg IV NOW STA Stop: 05/30/24 19:36 Last Admin: 05/30/24 19:40 Dose: 4 mg Documented By: NNEKA Morphine Sulfate (Morphine Sulfate 4 Mg/Ml 1 Ml Carp\\Vial) 4 mg IV NOW STA Stop: 05/30/24 22:03 Last Admin: 05/30/24 22:05 Dose: 4 mg Documented By: NNEKA Ondansetron HCl (Ondansetron Inj 2 Mg/Ml 2 Ml Vial) 4 mg IV NOW STA Stop: 05/30/24 19:36 Last Admin: 05/30/24 19:40 Dose: 4 mg Documented By: NNEKA Ondansetron HCl (Ondansetron Inj 2 Mg/Ml 2 Ml Vial) 4 mg IV NOW STA Stop: 05/30/24 22:45 Last Admin: 05/30/24 22:51 Dose: 4 mg Documented By: NNEKA Imaging Data Radiologist's Impression: Abdomen/Pelvis CT 05/30/24 19:34 Exam(s): CT ABDOMEN + PELVIS Without Contrast EXAM: CT Abdomen and Pelvis Without Intravenous Contrast CLINICAL HISTORY: Left flank Pain. TECHNIQUE: Axial computed tomography images of the abdomen and pelvis without intravenous contrast. CTDI is 27.81 mGy and DLP is 1204.12 mGy-cm. Automated exposure control was utilized for the study. A dose lowering technique was utilized adhering to the principles of ALARA. COMPARISON: No relevant prior studies available. FINDINGS: Lung bases: Unremarkable. No mass. No consolidation. ABDOMEN: Liver: The liver measures 18.8 cm. No visualized suspicious mass. No specific hepatomegaly. Gallbladder and bile ducts: Mildly distended gallbladder is nonspecific. No calcified stones. No ductal dilation. Pancreas: Unremarkable. No ductal dilation. Spleen: Unremarkable. No splenomegaly. Adrenals: Unremarkable. No mass. Kidneys and ureters: Moderate left hydronephrosis with a ureteral stent in good position. No visualized obstructing nephrolithiasis. Nonobstructing bilateral renal calculi. No right hydronephrosis. Stomach and bowel: Unremarkable. No obstruction. No mucosal thickening. PELVIS: Appendix: Normal appendix. Bladder: Thickening of the urinary bladder wall could relate to nondistention or cystitis. No stones. Reproductive: Unremarkable as visualized. ABDOMEN and PELVIS: Intraperitoneal space: Unremarkable. No free air. No significant fluid collection. Bones/joints: There are degenerative changes of the spine. No acute fracture. No dislocation. Soft tissues: Unremarkable. Vasculature: Mild atherosclerotic disease. No abdominal aortic aneurysm. Lymph nodes: Unremarkable. No enlarged lymph nodes. IMPRESSION: 1. Moderate left hydronephrosis with a ureteral stent in good position. No visualized obstructing nephrolithiasis. This could represent ascending infection as there is thickening of the bladder wall. 2. Thickening of the urinary bladder wall could relate to nondistention or cystitis. 3. Mildly distended gallbladder is nonspecific. 4. Nonobstructing bilateral renal calculi. No right hydronephrosis. 5. Nonspecific hepatomegaly. Electronically signed by: Lady Knowles MD 05/30/24 22:18 PM Discharge Plan Visit Data Chief Complaint: Flank Pain Stated Complaint: KIDNEY PAIN, ABD PAIN, NAUSEA ED Provider: Zaki Randle Discharge Problem: Acute UTI Forms Stand Alone Forms: [facility] Prescriptions Prescriptions: No Action sulfamethoxazole-trimethoprim [Bactrim DS] 800-160 mg tablet 1 tab PO BID Qty: 14 0RF Multaq 400 mg tablet 400 mg PO BID Rx Instructions: must administer with a meal/food metoprolol succinate 200 mg tablet extended release 24 hr 200 mg PO DAILY Qty: 30 11RF sertraline 100 mg tablet 100 mg PO BID lamotrigine [Lamictal] 25 mg tablet 50 mg PO QAM trazodone 150 mg tablet 300 mg PO HS methenamine hippurate 1 gram tablet 1 g PO AMHS Hold Instructions: HOLD while taking antibiotics (cefuroxime); may resume in 5 days aripiprazole [Abilify] 20 mg tablet 20 mg PO HS atorvastatin [Lipitor] 80 mg tablet 80 mg PO QAM ondansetron HCl 4 mg tablet 4 mg PO Q8 PRN (Reason: Nausea/Vomiting) metformin 500 mg tablet extended release 24 hr 1,000 mg PO BID cyclobenzaprine 5 mg tablet 5 mg PO HS PRN (Reason: Muscle Spasm) lisinopril 20 mg tablet 20 mg PO BID ezetimibe [Zetia] 10 mg tablet 10 mg PO HS Trelegy Ellipta 200-62.5-25 mcg blister with device 1 ea INHALATION QAM Eliquis 5 mg tablet 5 mg PO BID Qty: 60 5RF lidocaine [Lidoderm] 5 % adhesive patch,medicated 2 patch topical DAILY Qty: 30 0RF Rx Instructions: leave on most painful area for up to 12 hrs; remove for 12 hours. cyanocobalamin (vitamin B-12) 1,000 mcg tablet 1,000 mcg PO QAM Rx Instructions: purchase [id number] tamsulosin [Flomax] 0.4 mg capsule 0.4 mg PO QAM furosemide [Lasix] 20 mg tablet 20 mg PO DAILY PRN (Reason: swelling) Rx Instructions: for weight gain of more than 2-3 pounds over 1-2 days OR swelling of legs ferrous sulfate 325 mg (65 mg iron) tablet,delayed release (DR/EC) 325 mg PO QAM Rx Instructions: purchase [id number] Referrals Referrals: Yamileth Chen [email or web address] [Primary Care Provider] -
[2024-05-30 19:40] LABS: Basophils # (auto) 0.05 K/uL (0.00-0.20); Basophils % (auto) 0.3 %; Eosinophils # (auto) 0.03 K/uL (0.00-0.50); Eosinophils % (auto) 0.2 %; Hematocrit (blood only) 35.9 % (37.0-47.0); Hemoglobin 11.2 g/dl (12.0-16.0); Immature Granulocytes # (auto) 0.09 K/uL (0.01-0.20); Immature Granulocytes % (auto) 0.6 %; Lymphocytes # (auto) 1.26 K/uL (1.20-3.40); Mean Corpuscular Hemoglobin 26.5 pg (25.0-34.0); Mean Corpuscular Hgb Conc 31.2 g/dL (32.0-36.0); Mean Corpuscular Volume 84.9 fL (80.0-100.0); Mean Platelet Volume 9.6 fL (9.4-12.4); Monocytes # (auto) 0.53 K/uL (0.11-0.59); Monocytes % (auto) 3.4 %; Neutrophils # (auto) 13.75 K/uL (1.40-6.50); Neutrophils % (auto) 87.5 %; Platelet Count 361 K/uL (130-400); RDW Coefficient of Variation 16.9 % (11.5-14.5); RDW Standard Deviation 51.8 fL (36.4-46.3); Red Blood Count 4.23 M/uL (4.20-5.40); White Blood Count 15.71 K/ul (4.8-10.8)
[2024-05-30] MEDS: MoRPHine SULFATE 4 MG/ML 1 ML CARP\\VIAL IV STA ×2 (19:40→22:05)
[2024-05-30] MEDS: ONDANSETRON INJ 2 MG/ML 2 ML VIAL IV STA ×2 (19:40→22:51)
[2024-05-30 20:00] LABS: Alanine Aminotransferase 13 U/L (7-52); Albumin Globulin Ratio 1.5 (0.9-2); Albumin Level 4.3 gm/dl (3.4-5.0); Alkaline Phosphatase 61 U/L (34-104); Anion Gap 10 (3-11); Aspartate Aminotransferase 15 U/L (13-39); BUN Creatinine Ratio 13.5 (10-20); Bilirubin,Total 0.4 mg/dl (0.2-1.0); Blood Urea Nitrogen 17 mg/dl (6-23); Calcium 9.6 mg/dl (8.6-10.3); Carbon Dioxide 29 mmol/L (21-32); Chloride 102 mmol/L (98-107); Globulin 2.8 gm/dl (2.5-4.0); Glucose 129 mg/dl (70-99(Fasting)); Lipase 15 U/L (11-82); Sodium 141 mmol/L (136-145); Total Protein 7.1 gm/dl (6.0-8.3)
[2024-05-30 20:03] LABS: Prothrombin Time 11.3 Seconds (9.0-12.0)
[2024-05-30 20:06] LABS: Troponin I High Sensitivity 7.1 pg/ml (0-14)
[2024-05-30 20:23] LABS: Appearance Urine Cloudy (Clear); Bilirubin Urine Negative (Negative); Blood Urine 3+ (Negative); Color Urine Red; Glucose Urine UA Negative (Negative); Ketones Urine Negative (Negative); Leukocyte Esterase Urine Trace (Negative); Nitrite Urine Positive (Negative); Protein Urine 3+ (Negative); Specific Gravity Urine 1.025 (1.000-1.030); Urobilinogen Urine Negative (Negative)
[2024-05-30 20:28] LABS: Bacteria Urine None Seen (None Seen); Epithelial Cell Urine 0-2 /hpf (0-2); RBC Urine >20 /hpf (0-2); WBC Urine 0-5 /hpf (0-5)
[2024-05-30] MEDS: cefTRIAXone SODIUM 2,000 MG/50 ML BAG IV STA (21:31)
--- NOTE | 2024-05-30 22:19 | CT Scan Report ---
Exam(s): CT ABDOMEN + PELVIS Without Contrast EXAM: CT Abdomen and Pelvis Without Intravenous Contrast CLINICAL HISTORY: Left flank Pain. TECHNIQUE: Axial computed tomography images of the abdomen and pelvis without intravenous contrast. CTDI is 27.81 mGy and DLP is 1204.12 mGy-cm. Automated exposure control was utilized for the study. A dose lowering technique was utilized adhering to the principles of ALARA. COMPARISON: No relevant prior studies available. FINDINGS: Lung bases: Unremarkable. No mass. No consolidation. ABDOMEN: Liver: The liver measures 18.8 cm. No visualized suspicious mass. No specific hepatomegaly. Gallbladder and bile ducts: Mildly distended gallbladder is nonspecific. No calcified stones. No ductal dilation. Pancreas: Unremarkable. No ductal dilation. Spleen: Unremarkable. No splenomegaly. Adrenals: Unremarkable. No mass. Kidneys and ureters: Moderate left hydronephrosis with a ureteral stent in good position. No visualized obstructing nephrolithiasis. Nonobstructing bilateral renal calculi. No right hydronephrosis. Stomach and bowel: Unremarkable. No obstruction. No mucosal thickening. PELVIS: Appendix: Normal appendix. Bladder: Thickening of the urinary bladder wall could relate to nondistention or cystitis. No stones. Reproductive: Unremarkable as visualized. ABDOMEN and PELVIS: Intraperitoneal space: Unremarkable. No free air. No significant fluid collection. Bones/joints: There are degenerative changes of the spine. No acute fracture. No dislocation. Soft tissues: Unremarkable. Vasculature: Mild atherosclerotic disease. No abdominal aortic aneurysm. Lymph nodes: Unremarkable. No enlarged lymph nodes. IMPRESSION: 1. Moderate left hydronephrosis with a ureteral stent in good position. No visualized obstructing nephrolithiasis. This could represent ascending infection as there is thickening of the bladder wall. 2. Thickening of the urinary bladder wall could relate to nondistention or cystitis. 3. Mildly distended gallbladder is nonspecific. 4. Nonobstructing bilateral renal calculi. No right hydronephrosis. 5. Nonspecific hepatomegaly. Electronically signed by: Lady Knowles MD 05/30/24 22:18 PM
--- NOTE | 2024-05-30 23:03 | History & Physical Report ---
Date of Service May 30, 2024 Assessment & Plan (1) Urinary tract infection: (2) Hydronephrosis of left kidney: (3) Acute kidney injury: (4) Leukocytosis: (5) Abdominal pain: (6) Abnormal CT scan, gallbladder: (7) Hepatomegaly: (8) COPD (chronic obstructive pulmonary disease): (9) On home oxygen therapy: (10) Diastolic congestive heart failure: (11) Morbid obesity with BMI of 40.0-44.9, adult: (12) Diabetes mellitus: Plan Patient is a 68-year-old female with a past medical history of A-fib, HFpEF, T2DM, hypertension, COPD on chronic oxygen 2 L, peripheral neuropathy. and left ureteral stents placed 05/26 due to nephrolithiasis. She presents today due to diffuse pain. She is being admitted for suspected UTI with ARELY and leukocytosis. Patient to receive IV antibiotics, urology consulted, n.p.o. after midnight. #UTI/hydronephrosis S/p left stent placement 05/26 CT showing moderate left hydronephrosis with stent in good position, no obstructing nephrolithiasis, could represent ascending infection as there is thickening in urinary bladder consistent with cystitis UA showed hematuria, positive nitrites and trace leukocyte esterase, no WBC or bacteria Urine and blood cultures ordered Anticipate there is still urinary infection given CT findings, leukocytosis, and significant pain Will cover with Rocephin IV Tylenol prn, Dilaudid as needed for pain unrelieved by IV Tylenol - became nauseous with morphine chase placed Will hold Eliquis with hematuria Urology consulted - if catheter becomes clogged minimal flushing with irrigation can be employed by nursing staff, follow serial labs - was to have stent removed tomorrow 05/[address] Salazar #ARELY suspect 2/2 to infection above Cr 1.26 on admission BUN WNL 17 no electrolyte abnormalities FENa =1.9% - indeterminate hold lisinopril, lasix, metformin caution with IVF given hx of CHF - gentle hydration with NSS at 80 ml/hr x 1 bag overnight trend BMP #leukocytosis WBC 15.7 with neutrophil predominance on admission suspect 2/2 to UTI Not septic at this time, VSS Blood and urine cultures ordered as above COVID, flu, RSV swab ordered cover with Rocephin Trend CBC #Abd pain/gallbladder abnormality/hepatomegaly diffuse abd pain suspect 2/[address] AP showed mildly distended gallbladder (nonspecific, no stones) and nonspecific hepatomegaly LFTs WNL trend CMP - could consider GI consult if abd pain unrelieved with treatment above or LFT abnormality arises Zofran PRN and IV pantoprazole daily #COPD/ on home oxygen therapy stable, no exacerbation on admission continue home oxygen 2-3L NC continue home inhalers #HFpEF not in acute exacerbation on admission echo 03/2024 showed EF 55 to 60% abnormal septal wall motion consistent with conduction abnormality caution with IVF for ARELY - monitor for signs of overload Strict I's and O's daily weights hold Lasix prn #T2DM hold metformin loose SSI Chronic stable diagnoses: A fib - dx recent admission 03/2024 -continue metoprolol and dronedarone; holding Eliquis HTN - continue metoprolol, holding lisinopril HLD - continue statin and Zetia anemia - continue iron supplement VTE ppx: SCDs, hold Eliquis Diet: heart healthy, Low Na , T2DM Dispo: med/tele Admission and Anticipated Discharge Date Admission Date: 05/30/24 History of Present Illness Chief Complaint: flank pain Primary Care Provider: Yamileth Chen Patient is a 68-year-old female with a past medical history of A-fib, HFpEF, T2DM, hypertension, COPD on chronic oxygen 2 L, peripheral neuropathy. and left ureteral stents placed 05/26 due to nephrolithiasis. She presents today due to diffuse pain. She is being admitted for suspected UTI with ARELY and leukocytosis. Patient to receive IV antibiotics, urology consulted, n.p.o. after midnight. Patient seen at bedside. She stated that this morning she had diffuse pain all over her stomach and back. She also endorses fevers, chills, nausea, and decreased urination. She states she has not peed all day. She also endorses hematuria, however chronic. Her abdominal pain is relieved with 4 Mg morphine however now has developed nausea. She still has bilateral back pain. states she has been unable to eat or drink all day due to the pain. She endorses a sore throat for the past few days. Patient denies rhinorrhea, cough, sputum production, dyspnea, dyspnea on exertion, chest pain, diarrhea, constipation,melena, blood in stool. She does not use nicotine products or drink alcohol. She denies past history of cancer. She uses 2 to 3 L of oxygen at baseline for COPD. She did take her a.m. medications but she does not remember if she took her evening medications. She wishes to be full code at this time. Allergies Allergy/AdvReac Type Severity Reaction Status Date / Time No Known Allergies Allergy Verified 05/26/24 07:12 Home Medications Medication Instructions Recorded Confirmed Type aripiprazole 20 mg tablet (Abilify) 20 mg PO HS 03/21/24 05/31/24 History atorvastatin 80 mg tablet (Lipitor) 80 mg PO QAM 03/21/24 05/31/24 History cyclobenzaprine 5 mg tablet 5 mg PO HS PRN Muscle Spasm 03/21/24 05/31/24 History ezetimibe 10 mg tablet (Zetia) 10 mg PO HS 03/21/24 05/31/24 History fluticasone fur. 200 mcg-umeclid 1 ea inhalation QAM 03/21/24 05/31/24 History 62.5 mcg-vilant 25 mcg inhalat.powder (Trelegy Ellipta) lamotrigine 25 mg tablet (Lamictal) 50 mg PO QAM 03/21/24 05/31/24 History lisinopril 20 mg tablet 20 mg PO BID 03/21/24 05/31/24 History metformin 500 mg tablet,extended 1,000 mg PO BID 03/21/24 05/31/24 History release 24 hr methenamine hippurate 1 gram tablet 1 g PO AMHS 03/21/24 05/31/24 History ondansetron HCl 4 mg tablet 4 mg PO Q8 PRN Nausea/Vomiting 03/21/24 05/31/24 History sertraline 100 mg tablet 100 mg PO BID 03/21/24 05/31/24 History trazodone 150 mg tablet 300 mg PO HS 03/21/24 05/31/24 History apixaban 5 mg tablet (Eliquis) 5 mg PO BID #60 tabs 03/31/24 05/31/24 Rx lidocaine 5 % topical patch 2 patch topical DAILY #30 ea 04/01/24 05/31/24 Rx (Lidoderm) cyanocobalamin (vitamin B-12) 1,000 mcg PO QAM 04/13/24 05/31/24 History 1,000 mcg tablet ferrous sulfate 325 mg (65 mg 325 mg PO QAM 04/13/24 05/31/24 History iron) tablet,delayed release furosemide 20 mg tablet (Lasix) 20 mg PO DAILY PRN swelling 04/13/24 05/26/24 History tamsulosin 0.4 mg capsule (Flomax) 0.4 mg PO QAM 04/13/24 05/31/24 History metoprolol succinate 200 mg 200 mg PO DAILY #30 tabs 04/26/24 05/31/24 Rx tablet,extended release 24 hr dronedarone 400 mg tablet (Multaq) 400 mg PO BID 04/30/24 05/31/24 History sulfamethoxazole 800 1 tab PO BID #14 tabs 05/30/24 05/31/24 Rx mg-trimethoprim 160 mg tablet (Bactrim DS) Past Med/Surg History Problem List (Updated 05/31/24 @ 02:51 by Nohemi Daemkeyshawn) Acute UTI (Acute) Abnormal CT scan, gallbladder Abdominal pain On home oxygen therapy 2.5-3L HS and PRN daytime COPD (chronic obstructive pulmonary disease) on home O2 Acute kidney injury Hepatomegaly Cholecystitis without cholelithiasis Leukocytosis Urinary tract infection Encounter for pre-operative examination Dizziness Anticoagulant long-term use Paroxysmal atrial fibrillation Hypomagnesemia Morbid obesity with BMI of 40.0-44.9, adult History of stroke Diastolic congestive heart failure Diabetes mellitus Anemia Obstruction of left ureteropelvic junction (UPJ) due to stone Hydronephrosis of left kidney Medical History On home oxygen therapy 2.5-3L HS and PRN daytime Obesity Carotid stenosis Per 03/22/24 carotid doppler - 50-69% stenosis in the left ICA. Hx: UTI (urinary tract infection) (03/2024) Treated as inpatient with abxs Anemia (03/2024) - per records - iron deficiency anemia, presumably due to blood loss, possibly urinary (did have urinary stent placed) - 1 unit of PRBC given during 03/2024 hospitalization - on PO iron and Vit B12 Hydronephrosis of left kidney Sleep apnea can't tolerate cpap; she does use 2.5-3L O2 at night COPD (chronic obstructive pulmonary disease) on home O2 Hx of sepsis (03/2024) due to kidney stone, admit to [facility] x 10 days Hx of migraines Diabetes mellitus Diastolic congestive heart failure History of stroke (2019) x 2, ~ 5 years ago, reports "trouble walking and left side weaker" - uses a cane History of postoperative nausea and vomiting Paroxysmal atrial fibrillation (03/2024) - recent diagnosis 03/2024, no cardioversion, started on eliquis; saw [facility] [place] [facility] 04/26/24 - started on Eliquis, Multaq and metoprolol by cardio while inpatient; per Cardio visit 04/26/24, remain on current regimen Anxiety and depression Hypertension Surgical History Hx of colonoscopy S/P cystoscopy with ureteral stent placement (03/2024) multiple; most recent 04/19/24: [place]: LMA#4 History of lithotripsy 2-3 x Hx of partial thyroidectomy "thought it was cancerous but it wasn't" Social History Smoking Status: Former smoker Tobacco Type: Cigarettes Cigarettes Per Day: quit 17 years ago; Second Hand Exposure: No; Do You Dip or Chew Tobacco: No; Hx Alcohol Use: No Hx Substance Use: Yes Last Used Substance: Days (ago) Substance Use Type Other:: marijuana use few times weekly Preferred Language: Sinhala Communication Ability: Effective Visual Impairment: No Limitations 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 Non-toxic appearing. HEENT- EOMI, mucous membranes moist. Hearing grossly intact. Heart-normal S1 and S2. No murmurs, rubs or gallops. Lungs-decreased bilaterally, no respiratory distress, no accessory muscle use. 2L O2. Abdomen-normal bowel sounds and soft. No ascites noted. diffuse tenderness with deep palpation. Extremities- no clubbing, cyanosis, or edema. Rheumatologic-normal range of motion. Psychiatric-normal affect. Results & Data Results & Data Vital Signs (Past 12 Hours) Vital Signs Temp Pulse Pulse Resp BP BP Pulse Ox 05/30/24 22:00 69 18 161/81 H 95 05/30/24 20:36 62 05/30/24 20:30 64 18 133/59 L 95 05/30/24 19:01 36.5 C 73 16 160/78 H 93 O2 Del Method O2 Flow Rate 05/30/24 22:00 Nasal Cannula 2 05/30/24 20:36 05/30/24 20:30 Nasal Cannula 2 05/30/24 19:01 Room Air ECG Additional Comments: ordered Code Status & VTE Plan Code Status full code VTE Prophylaxis Plan VTE Prophylaxis will be ordered: Yes Supervising Physician Co-Signing Physician Notes Attending addendum: I have physically seen this patient, have supervised the CRISTINE's activities, and agree with the H&P unless as otherwise noted. Assessment and Plan: The patient is a 68-year-old female with a past medical history including atrial fibrillation, HFpEF, diabetes mellitus type 2, hypertension, COPD 2 L oxygen dependent, peripheral neuropathy and left ureteral stents placed 05/26 due to nephrolithiasis. She presented to the emergency department with diffuse abdominal pain, urinary tract infection, ARELY leukocytosis, was given ceftriaxone 2 g IV, morphine milligrams IV and Zofran 4 mg IV, and [facility] for [facility] #UTI/moderate left hydronephrosis- Status post left ureteral stent placement 05/26 CT showing moderate left hydronephrosis with stent in good position, no obstructing nephrolithiasis, could represent a ascending infection as there is thickening in the urinary bladder consistent with cystitis Urinalysis with hematuria, positive nitrites and trace leukocyte esterase, no WBC or bacteria Follow urine and blood cultures and sensitivities Empiric ceftriaxone 2 g IV daily Acetaminophen 1 g IV every 8 hours as needed for mild pain or fever Dilaudid as needed moderate to severe pain Chase catheter placed Hold Eliquis due to hematuria Consult urology Acute kidney injury- Creatinine 1.26, with base 0.82 Holding lisinopril, furosemide NSS at 80 mL/h x 1 L Diabetes mellitus-Holding metformin PG Care Time/CCT Total # of Minutes Spent Total Time Spent with Patient: Total time spent is greater than 50% in coordination of care (as documented) at patient's floor/unit and/or counseling patient: Coding Level of Care Code 67210 INT INP/OBS CARE MIN Diagnoses Urinary tract infection N39.0 Hydronephrosis of left kidney N13.30 Acute kidney injury N17.9 Leukocytosis D72.829 Abdominal pain R10.[address] scan, gallbladder R93.2 Hepatomegaly R16.0 COPD (chronic obstructive pulmonary disease) J44.9 On home oxygen therapy Z99.81 Chronic diastolic congestive heart failure I50.32 Heart failure chronicity: chronic Morbid obesity with BMI of 40.0-44.9, adult E66.01; Z68.41 Diabetes mellitus E11.9 (10) Diastolic congestive heart failure Heart failure chronicity: chronic Qualified Code(s): I50.32 - Chronic diastolic (congestive) heart failure
--- NOTE | 2024-05-30 23:15 | Urology Consultation ---
<Statement entered by Sunny Goldsmith MD - 05/31/24 07:50> I agree with the above documentation. 68-year-old female s/p recent ureteroscopy procedure. Urinalysis suggestive of infection, would treat with broad-spectrum antibiotics and narrow coverage as culture data becomes available. I reviewed her CT scan which demonstrates her stent to be in good position. It looks to me like her right upper tract may be full of clot given the slightly hyperdense material. I will defer to Dr. Salazar regarding stent management, but I suspect we will keep it in place to allow urine to drain as the clot breaks down. Bladder appears to be decompressed around So catheter. If catheter becomes obstructed, could hand irrigate to remove any clots. -Sunny Goldsmith MD. Date of Consultation May 30, 2024 Assessment & Plan (1) Hydronephrosis of left kidney: I discussed with the treating emergency room physician the patient is being admitted on the hospitalist service. From a urologic perspective we recommend the following: It appears that the patient has urinary tract infection and appropriate cultures have been sent She has been placed on antibiotics in the form of Rocephin, culture should be followed and antibiotics be tailored based on these results The patient did have symptoms of urinary retention upon presentation to the emergency department which may have been related to underlying hematuria. The nurses in the emergency department did place a So catheter with excess of 1000 cc of bloody urine and the patient noted symptomatic relief after this modality. If the patient's catheter does become clogged manual flushing irrigation can be employed by the nursing staff Would recommend following serial labs Patient for me that she did have an appointment with Dr. Salazar on 05/31/2024 (this is tomorrow) at which time consideration will be given to removing her stent. I have notified the office staff via the messaging system on [employer] of her admission to the hospital Additional recommendations with forthcoming based on her clinical course as it unfolds History of Present Illness Reason for Consultation: Hematuria Left flank pain with recent ureteral stent exchange History of Present Illness This is a 68-year-old female who presented to the emergency department secondary to back/flank pain and hematuria along with difficulty urinating. She is a patient of [facility] urology and most recently underwent a urologic procedure on 05/26/[address] Corey Salazaron this date he performed a cystoscopy with exchange of a left ureteral stent. During this procedure there is some stone debris noted in her kidney. It is also noteworthy to mention that on 04/19/2024 Dr. Salazar performed a cystoscopy with laser lithotripsy and exchange of a left ureteral stent. The patient does note that she takes Eliquis and held this medication 2 days prior to procedure and resumed her Eliquis 2 days following the procedure. Today when she presented to the emergency department she says that she has been having some severe left flank pain. She feels nauseated but does not have any vomiting and has had a poor appetite throughout the day. She says she felt feverish but admits she did not take her temperature. Patient says that since she began resuming her Eliquis she was having some gross hematuria and then had the inability to urinate. Since arrival to the emergency department the patient has had labs and imaging which I independent reviewed. A CT scan of the abdomen pelvis was performed isamar t showed moderate left-sided hydronephrosis. Her left ureteral stent was noted to be in good position and there is no obstructing nephrolithiasis noted. There was concern the patient did have an ascending infection as there is thickening of the bladder wall. Labs included CBC white blood cell count was elevated 15.7. Hemoglobin and hematocrit are 11.2 and 35.9. Platelet count was noted to be normal. Chemistry profile showed sodium and potassium are normal. Her BUN and creatinine were 17 and 1.2. (This level of hemoglobin and hematocrit did not represent a significant drop from previous values, and her level of creatinine did not represent a significant increase from previous values). Urinalysis today did show cloudy urine which had 3+ blood and was positive for nitrites. She had trace leukocyte Estrace and no pyuria. There is no bacteria noted on the study. At the time of my interview the patient was resting comfortably in bed and she was no distress. Allergies Allergy/AdvReac Type Severity Reaction Status Date / Time No Known Allergies Allergy Verified 05/26/24 07:12 Home Medications Medication Instructions Recorded Confirmed Type aripiprazole 20 mg tablet (Abilify) 20 mg PO HS 03/21/24 05/26/24 History atorvastatin 80 mg tablet (Lipitor) 80 mg PO QAM 03/21/24 05/26/24 History cyclobenzaprine 5 mg tablet 5 mg PO HS PRN Muscle Spasm 03/21/24 05/26/24 History ezetimibe 10 mg tablet (Zetia) 10 mg PO HS 03/21/24 05/26/24 History fluticasone fur. 200 mcg-umeclid 1 ea inhalation QAM 03/21/24 05/26/24 History 62.5 mcg-vilant 25 mcg inhalat.powder (Trelegy Ellipta) lamotrigine 25 mg tablet (Lamictal) 50 mg PO QAM 03/21/24 05/26/24 History lisinopril 20 mg tablet 20 mg PO BID 03/21/24 05/26/24 History metformin 500 mg tablet,extended 1,000 mg PO BID 03/21/24 05/26/24 History release 24 hr methenamine hippurate 1 gram tablet 1 g PO AMHS 03/21/24 05/26/24 History ondansetron HCl 4 mg tablet 4 mg PO Q8 PRN Nausea/Vomiting 03/21/24 05/26/24 History sertraline 100 mg tablet 100 mg PO BID 03/21/24 05/26/24 History trazodone 150 mg tablet 300 mg PO HS 03/21/24 05/26/24 History apixaban 5 mg tablet (Eliquis) 5 mg PO BID #60 tabs 03/31/24 05/26/24 Rx lidocaine 5 % topical patch 2 patch topical DAILY #30 ea 04/01/24 05/26/24 Rx (Lidoderm) cyanocobalamin (vitamin B-12) 1,000 mcg PO QAM 04/13/24 05/26/24 History 1,000 mcg tablet ferrous sulfate 325 mg (65 mg 325 mg PO QAM 04/13/24 05/26/24 History iron) tablet,delayed release furosemide 20 mg tablet (Lasix) 20 mg PO DAILY PRN swelling 04/13/24 05/26/24 History tamsulosin 0.4 mg capsule (Flomax) 0.4 mg PO QAM 04/13/24 05/26/24 History metoprolol succinate 200 mg 200 mg PO DAILY #30 tabs 04/26/24 05/26/24 Rx tablet,extended release 24 hr dronedarone 400 mg tablet (Multaq) 400 mg PO BID 04/30/24 05/26/24 History sulfamethoxazole 800 1 tab PO BID #14 tabs 05/30/24 Rx mg-trimethoprim 160 mg tablet (Bactrim DS) Patient History Medical History On home oxygen therapy 2.5-3L HS and PRN daytime Obesity Carotid stenosis Per 03/22/24 carotid doppler - 50-69% stenosis in the left ICA. Hx: UTI (urinary tract infection) (03/2024) Treated as inpatient with abxs Anemia (03/2024) - per records - iron deficiency anemia, presumably due to blood loss, possibly urinary (did have urinary stent placed) - 1 unit of PRBC given during 03/2024 hospitalization - on PO iron and Vit B12 Hydronephrosis of left kidney Sleep apnea can't tolerate cpap; she does use 2.5-3L O2 at night COPD (chronic obstructive pulmonary disease) on home O2 Hx of sepsis (03/2024) due to kidney stone, admit to [facility] x 10 days Hx of migraines Diabetes mellitus Diastolic congestive heart failure History of stroke (2018) x 2, ~ 5 years ago, reports "trouble walking and left side weaker" - uses a cane History of postoperative nausea and vomiting Paroxysmal atrial fibrillation (03/2024) - recent diagnosis 03/2024, no cardioversion, started on eliquis; saw [facility] [place] [facility] 04/26/24 - started on Eliquis, Multaq and metoprolol by cardio while inpatient; per Cardio visit 04/26/24, remain on current regimen Anxiety and depression Hypertension Surgical History Hx of colonoscopy S/P cystoscopy with ureteral stent placement (03/2024) multiple; most recent 04/19/24: [place]: LMA#4 History of lithotripsy 2-3 x Hx of partial thyroidectomy "thought it was cancerous but it wasn't" Social History Smoking Status: Former smoker Tobacco Type: Cigarettes Cigarettes Per Day: quit 17 years ago; Second Hand Exposure: No; Do You Dip or Chew Tobacco: No; Hx Alcohol Use: No Hx Substance Use: Yes Substance Use Type Other:: marijuana use few times weekly Preferred Language: Mohawk Communication Ability: Effective Visual Impairment: No Limitations 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: No Beliefs That Will Affect Care: None Current Living Situation: Alone Current Living Situation Comment: lives at home either alone or with () Feels Safe at Home: Yes Assistive Devices: Cane, Denture - Upper, Denture - Lower, Oxygen - at Night and Oxygen - Continuous Review of Systems Review of Systems: All systems reviewed & are unremarkable except as noted in HPI & below Physical Exam Constitutional: WD/WN, vitals as above Eyes: no conjunctival abnormality ENMT: Ears: no hearing impairment and no external ear abnormality Mouth: no oropharynx abnormality Neck: trachea midline Respiratory: normal respiratory effort; no respiratory distress and no labored breathing Cardiovascular: Rate/Rhythm: regular rate and regular rhythm Gastrointestinal (Abdomen): Soft and nontender to palpation Musculoskeletal: No calf tenderness Skin: no rashes Neurologic: moves all extremities Psychiatric: A+Ox3, euthymic affect CVA tenderness noted with percussion bilaterally which. Be greater on the left. Patient had a So catheter in place that was draining grossly bloody urine but it did appear to be pain Results & Data Vital Signs (Past 12 Hours) Vital Signs Temp Pulse Pulse Resp BP BP Pulse Ox 05/30/24 22:00 69 18 161/81 H 95 05/30/24 20:36 62 05/30/24 20:30 64 18 133/59 L 95 05/30/24 19:01 36.5 C 73 16 160/78 H 93 O2 Del Method O2 Flow Rate 05/30/24 22:00 Nasal Cannula 2 05/30/24 20:36 05/30/24 20:30 Nasal Cannula 2 05/30/24 19:01 Room Air PG Care Time/CCT Total # of Minutes Spent Total Time Spent with Patient: Total time spent is greater than 50% in coordination of care (as documented) at patient's floor/unit and/or counseling patient: Coding Level of Care Code 73799 INT INP/OBS CARE 375MIN Diagnoses Hydronephrosis of left kidney N13.30
[2024-05-31 00:21] LABS: Influenza A virus by PCR Negative (Neg); Influenza B virus by PCR Negative (Neg); RSV by PCR Negative (Neg); SARS CoV2 RNA(COVID-19) Ceph NEGATIVE (Negative)
[2024-05-31] MEDS: PANTOprazole 40 MG/10 ML SYR IV ONE (00:40)
[2024-05-31] MEDS: SODIUM CHLORIDE 0.9% 1,000 ML IV SCH (00:45)
[2024-05-31 01:50] LABS: Creatinine Urine Random 49.7 mg/dl
[2024-05-31] MEDS ORDERED: HYDROmorphone INJ 0.5 MG/0.5 ML SYR IV PRN (02:59)
[2024-05-31] MEDS ORDERED: GLUCOSE 40% GEL 15 GM TUBE PO PRN (02:59)
[2024-05-31] MEDS ORDERED: GLUCAGON FOR INJ 1 MG VIAL SQ PRN (02:59)
[2024-05-31] MEDS ORDERED: CARBOHYDRATES FOR HYPOGLYCEMIA PO PRN (02:59)
[2024-05-31] MEDS ORDERED: DEXTROSE 50% 50 ML SYRINGE IV PRN (02:59)
[2024-05-31] MEDS ORDERED: GLUCOSE 10 TAB/TUBE PO PRN (02:59)
[2024-05-31] MEDS: HYDROmorphone INJ 0.5 MG/0.5 ML SYR IV STA (03:10)
[2024-05-31] MEDS: EZETIMIBE 10 MG TAB PO SCH (03:48)
[2024-05-31] MEDS: ARIPiprazole 10 MG TAB PO SCH (03:48)
[2024-05-31 06:50] LABS: Basophils # (auto) 0.03 K/uL (0.00-0.20); Basophils % (auto) 0.3 %; Eosinophils # (auto) 0.01 K/uL (0.00-0.50); Eosinophils % (auto) 0.1 %; Hematocrit (blood only) 30.2 % (37.0-47.0); Hemoglobin 9.5 g/dl (12.0-16.0); Immature Granulocytes # (auto) 0.04 K/uL (0.01-0.20); Immature Granulocytes % (auto) 0.4 %; Lymphocytes # (auto) 1.43 K/uL (1.20-3.40); Lymphocytes % (auto) 13.4 %; Mean Corpuscular Hemoglobin 26.7 pg (25.0-34.0); Mean Corpuscular Hgb Conc 31.5 g/dL (32.0-36.0); Mean Corpuscular Volume 84.8 fL (80.0-100.0); Mean Platelet Volume 9.5 fL (9.4-12.4); Monocytes # (auto) 0.46 K/uL (0.11-0.59); Monocytes % (auto) 4.3 %; Neutrophils # (auto) 8.67 K/uL (1.40-6.50); Neutrophils % (auto) 81.5 %; Platelet Count 284 K/uL (130-400); RDW Standard Deviation 52.8 fL (36.4-46.3); Red Blood Count 3.56 M/uL (4.20-5.40); White Blood Count 10.64 K/ul (4.8-10.8)
[2024-05-31 07:04] LABS: Albumin Globulin Ratio 1.7 (0.9-2); Albumin Level 3.7 gm/dl (3.4-5.0); BUN Creatinine Ratio 14.5 (10-20); Bilirubin,Total 0.5 mg/dl (0.2-1.0); Calcium 8.8 mg/dl (8.6-10.3); Creatinine Clr Calc Pharmacy 45.7 ml/min; Globulin 2.2 gm/dl (2.5-4.0); Magnesium 1.6 mg/dl (1.7-2.4); Potassium 4.3 mmol/L (3.5-5.1); Total Protein 5.9 gm/dl (6.0-8.3)
[2024-05-31] MEDS: HYDROmorphone INJ 1 MG/ML SYRINGE IV PRN ×2 (08:25→14:04)
[2024-05-31] MEDS: ONDANSETRON INJ 2 MG/ML 2 ML VIAL IV PRN ×2 (08:25→14:03)
[2024-05-31] MEDS: INSULIN ASPART PER UNIT CHARGE SC SCH (08:52)
[2024-05-31] MEDS ORDERED: NON-FORMULARY MEDICATION (Fluticasone-Umeclidin-Vilanter [Trelegy Ellipta] 200-62.5-25 mcg INH SCH (09:00)
[2024-05-31] MEDS: PANTOprazole 40 MG/10 ML SYR IV SCH (09:37)
[2024-05-31] MEDS: ATORVASTATIN 40 MG TAB PO SCH (09:38)
[2024-05-31] MEDS: FLUTICASONE FUROATE 200MCG 14 PUFFS/INHALER INH SCH (09:38)
[2024-05-31] MEDS: UMECLIDINIUM/VILANTEROL 62.5/25MCG 7 PUFFS/INHALER INH SCH (09:38)
[2024-05-31] MEDS: DRONEDARONE HCL 400 MG TAB PO SCH (09:38)
[2024-05-31] MEDS: lamoTRIgine 25 MG TAB PO SCH (09:39)
[2024-05-31] MEDS: METOPROLOL SUCC 50MG EXT REL TAB PO SCH (09:39)
[2024-05-31] MEDS: FERROUS SULFATE 325 MG TAB PO SCH (09:39)
[2024-05-31] MEDS: SERTRALINE HCL 100 MG TABLET PO SCH (09:39)
[2024-05-31] MEDS: TAMSULOSIN HCL 0.4 MG CAP PO SCH (09:39)
[2024-05-31] MEDS: MAGNESIUM SULFATE / D5W 1 GM/100 ML BAG IV SCH (11:14)
--- NOTE | 2024-05-31 11:35 | Electrocardiogram Report ---
Test Reason : Blood Pressure : */* mmHG Vent. Rate : 70 BPM Atrial Rate : 70 BPM P-R Int : 182 ms QRS Dur : 72 ms QT Int : 430 ms P-R-T Axes : 49 19 56 degrees QTcB Int : 464 ms Normal sinus rhythm Normal ECG When compared with ECG of 31-Mar-2024 06:23, No significant change was found Confirmed by Vince Monterroso ([id number]) on 05/31/2024 11:34:48 AM Referred By: REFERRED SELF Confirmed By: Vince Monterroso
--- NOTE | 2024-05-31 12:03 | Urology Progress Note ---
Date of Service May 31, 2024 Assessment & Plan (1) Acute UTI: (2) Hydronephrosis of left kidney: Plan 68-year-old female s/p recent ureteroscopy procedure admitted with UTI -Afebrile with stable vitals -Labs reviewed-WBC 10.64, hemoglobin 9.5, creatinine 1.31 -Blood cultures pending -So intact and draining light red urine -CT imaging demonstrates her stent to be in good position -No plan for acute intervention -Maintain So catheter. Okay to hand irrigate as needed for clots, obstruction, suprapubic pain. -Continue antibiotics and narrow coverage as culture data becomes available -Continue supportive care -Will need to reschedule her stent removal as an outpatient after acute issues have resolved -Anticoagulation on hold -Urology will follow Admission and Anticipated Discharge Date Admission Date: May 30, 2024 Subjective Pt seen at bedside this AM in the ED Awake and resting in bed on arrival No acute distress So draining light red urine Denies fever or chills Some nausea, no vomiting Denies significant pain at present Review of Systems Constitutional: as per Subjective / HPI Genitourinary: as per Subjective / HPI Physical Exam Constitutional: no acute distress Respiratory: no respiratory distress and no labored breathing Neurologic: awake Psychiatric: Orientation: alert and cooperative Genitourinary: So intact Results & Data Vital Signs (Past 12 Hours) Vital Signs Pulse Pulse Resp BP BP Pulse Ox Pulse Ox 05/31/24 11:00 68 18 155/76 H 94 05/31/24 10:00 68 16 151/76 H 94 05/31/24 09:00 65 16 142/79 H 96 05/31/24 08:00 74 14 175/73 H 95 05/31/24 07:44 68 05/31/24 07:00 72 15 145/74 H 97 05/31/24 05:56 97 05/31/24 05:55 66 12 147/98 H 97 05/31/24 03:50 66 18 149/83 H 95 05/31/24 03:00 65 20 149/83 H 95 05/31/24 00:14 66 O2 Del Method O2 Del Method O2 Flow Rate 05/31/24 11:00 Room Air 05/31/24 10:00 Room Air 05/31/24 09:00 Room Air 05/31/24 08:00 Room Air 05/31/24 07:44 05/31/24 07:00 Room Air 05/31/24 05:56 Room Air 05/31/24 05:55 Room Air 05/31/24 03:50 Nasal Cannula 2.5 05/31/24 03:00 Nasal Cannula 2.5 05/31/24 00:14 PG Care Time/CCT Total # of Minutes Spent Total Time Spent with Patient: Total time spent is greater than 50% in coordination of care (as documented) at patient's floor/unit and/or counseling patient: Coding Level of Care Code 45612 SUB INP/OBS CARE 2/35MIN Diagnoses Acute UTI N39.0 Hydronephrosis of left kidney N13.30
--- NOTE | 2024-05-31 17:22 | Hospitalist Progress Note ---
Date of Service May 31, 2024 Assessment & Plan (1) Complicated UTI (urinary tract infection): Plan: suspected UTI in the setting recent ureteral stent exchange on left on 05/26/[address] Salazar, [facility] patient presented with subjective fever, chills, UTI symptoms, abd pain, nausea u/a w/ micro worrisome for UTI unfortunately urine cx was not dispatched at time of admission and she has already received IV antibiotics [id number] did ask nursing to send urine from her chase port cont IV rocephin follow blood/urine cx's (2) Hematuria: Plan: 2nd to recent ureteral stent exchange 2nd to suspected UTI hematuria is in the setting of Eliquis 5mg BID usage at home for h/o PAF Eliquis now on hold H/H acceptable for now repeat cbc am (3) S/P ureteral stent placement: Plan: original left-sided ureteral stent placement on 03/22/25 for an obstructing left-sided stone then on 04/19/25 had laser lithotripsy of the left-sided stone along with stent exchange 05/22/24 underwent stent exchange again; stone was completely gone - no left over fragments seen during 05/22 cystoscopy she likely is having bladder spasm in addition to stent pain cannot exclude kidney pain from ascending infection cont flomax add oxybutinin 5mg BID pain meds prn (4) COPD (chronic obstructive pulmonary disease): Plan: no exacerbation at this time cont Trelegy daily (5) Acute kidney injury: Plan: baseline Cr is <1 today's Cr 1.3 has received IV fluids since admission repeat BMP am hold lasix hold lisinopril (6) Paroxysmal atrial fibrillation: Plan: discovered during 03/2024 admission is now on Eliquis, meto succ, and dronedarone 400mg BID Eliquis is on hold cont meto succ cont dronedarone BID (7) Hypomagnesemia: Plan: mag 1.6 replace IV mag repeat level am (8) Morbid obesity with BMI of 40.0-44.9, adult: Plan: BMI ~40 (9) Diabetes mellitus: Plan: a1c 5.4% in 03/2024 loose novolog SSI (10) Anemia: Plan: 2nd to blood loss from hematuria, etc H/H low but acceptable CBC in am (11) Hydronephrosis of left kidney: Plan: in the setting of previous obstructing kidney stone on left - 03/2024 s/p multiple ureteral stents since that time see #1 above Plan will need PT/OT while here Admission and Anticipated Discharge Date Admission Date: May 30, 2024 Subjective continues with gross hematuria continues with nausea, poor appetite continues with lower abdominal pain and back pain along the low back - particularly the left low back denies upper abd pain denies fever no dyspnea Review of Systems Review of Systems: cv - no chest pain pulm - no dyspnea GI - no vomiting Physical Exam Physical Exam: gen - obese, looks tired, but NAD mouth - MMM neck - no JVD heart - RRR, s1 s2, no murmur lungs - CTA b/l abd - bloated/distended, BS+, tender b/l lower quadrants worse on left, mild flank tenderness on left, no peritoneal signs ext - no edema, pulses 2+ b/l psych - a/o x 3 Results & Data Results & Data Vital Signs (Past 12 Hours) Vital Signs Temp Pulse Pulse Resp BP BP Pulse Ox 05/31/24 16:30 37.3 C 60 20 138/76 94 05/31/24 11:00 68 18 155/76 H 94 05/31/24 10:00 68 16 151/76 H 94 05/31/24 09:00 65 16 142/79 H 96 05/31/24 08:00 74 14 175/73 H 95 05/31/24 07:44 68 05/31/24 07:00 72 15 145/74 H 97 05/31/24 05:56 05/31/24 05:55 66 12 147/98 H 97 Pulse Ox O2 Del Method O2 Del Method 05/31/24 16:30 Room Air 05/31/24 11:00 Room Air 05/31/24 10:00 Room Air 05/31/24 09:00 Room Air 05/31/24 08:00 Room Air 05/31/24 07:44 05/31/24 07:00 Room Air 05/31/24 05:56 97 Room Air 05/31/24 05:55 Room Air Laboratory Results Laboratory Results - last 24 hr 05/31/24 05/31/24 05/31/24 06:20 08:40 11:14 WBC 10.64 RBC 3.56 L Hgb 9.5 L Hct 30.2 L MCV 84.8 MCH 26.7 MCHC 31.5 L RDW Std Deviation 52.8 H RDW Coeff of Nicolas 17.0 H Plt Count 284 MPV 9.5 Immature Gran % (Auto) 0.4 Neut % (Auto) 81.5 Lymph % (Auto) 13.4 [place] % (Auto) 4.3 Eos % (Auto) 0.1 Baso % (Auto) 0.3 Neut # (Auto) 8.67 H Lymph # (Auto) 1.43 [place] # (Auto) 0.46 Eos # (Auto) 0.01 Baso # (Auto) 0.03 Immature Gran # (Auto) 0.04 Sodium 140 Potassium 4.3 Chloride 102 Carbon Dioxide 31 Anion Gap 7 BUN 19 Creatinine 1.31 H Est Cr Clr Drug Dosing 45.7 eGFR 44.66 BUN/Creatinine Ratio 14.5 Glucose 123 H POC Glucose 130 H 126 H Calcium 8.8 Magnesium 1.6 L Total Bilirubin 0.5 AST 14 ALT 10 Alkaline Phosphatase 52 Total Protein 5.9 L Albumin 3.7 Globulin 2.2 L Albumin/Globulin Ratio 1.7 05/31/24 17:33 WBC RBC Hgb Hct MCV MCH MCHC RDW Std Deviation RDW Coeff of Nicolas Plt Count MPV Immature Gran % (Auto) Neut % (Auto) Lymph % (Auto) [place] % (Auto) Eos % (Auto) Baso % (Auto) Neut # (Auto) Lymph # (Auto) [place] # (Auto) Eos # (Auto) Baso # (Auto) Immature Gran # (Auto) Sodium Potassium Chloride Carbon Dioxide Anion Gap BUN Creatinine Est Cr Clr Drug Dosing eGFR BUN/Creatinine Ratio Glucose POC Glucose 119 H Calcium Magnesium Total Bilirubin AST ALT Alkaline Phosphatase Total Protein Albumin Globulin Albumin/Globulin Ratio PG Care Time/CCT Total # of Minutes Spent Total Time Spent with Patient: Total time spent is greater than 50% in coordination of care (as documented) at patient's floor/unit and/or counseling patient: Coding Level of Care Code 64299 SUB INP/OBS CARE 2/35MIN Diagnoses Complicated UTI (urinary tract infection) N39.0 Hematuria R31.9 S/P ureteral stent placement Z96.0 COPD (chronic obstructive pulmonary disease) J44.9 Acute kidney injury N17.9 Paroxysmal atrial fibrillation I48.0 Hypomagnesemia E83.42 Morbid obesity with BMI of 40.0-44.9, adult E66.01; Z68.41 Diabetes mellitus E11.9 Anemia, unspecified type D64.9 Anemia type: unspecified type Hydronephrosis of left kidney N13.30 (10) Anemia Anemia type: unspecified type Qualified Code(s): D64.9 - Anemia, unspecified
[2024-05-31] MEDS: HYDROmorphone INJ 0.5 MG/0.5 ML SYR IV PRN (18:10)
[2024-05-31] MEDS: cefTRIAXone SODIUM 2,000 MG/50 ML BAG IV SCH (21:14)
[2024-05-31] MEDS: traZODone HCL 100 MG TAB PO SCH (21:15)
[2024-05-31] MEDS: oxyBUTYnin chloride 5 MG TAB PO SCH (21:15)
[2024-06-01] MEDS: oxyCODONE HCL IR 5 MG TAB (IMMEDIATE RELEASE) PO ONE (00:15)
[2024-06-01] MEDS: ACETAMINOPHEN 1,000 MG/100 ML VIAL IV PRN (04:15)
[2024-06-01 08:03] LABS: Basophils # (auto) 0.02 K/uL (0.00-0.20); Basophils % (auto) 0.3 %; Eosinophils # (auto) 0.14 K/uL (0.00-0.50); Eosinophils % (auto) 1.8 %; Hematocrit (blood only) 26.4 % (37.0-47.0); Hemoglobin 8.5 g/dl (12.0-16.0); Immature Granulocytes # (auto) 0.03 K/uL (0.01-0.20); Immature Granulocytes % (auto) 0.4 %; Lymphocytes # (auto) 1.97 K/uL (1.20-3.40); Lymphocytes % (auto) 25.8 %; Mean Corpuscular Hemoglobin 27.4 pg (25.0-34.0); Mean Corpuscular Hgb Conc 32.2 g/dL (32.0-36.0); Mean Corpuscular Volume 85.2 fL (80.0-100.0); Mean Platelet Volume 9.5 fL (9.4-12.4); Monocytes % (auto) 6.6 %; Neutrophils # (auto) 4.97 K/uL (1.40-6.50); Neutrophils % (auto) 65.1 %; Platelet Count 244 K/uL (130-400); RDW Standard Deviation 52.6 fL (36.4-46.3); White Blood Count 7.63 K/ul (4.8-10.8)
[2024-06-01 08:28] LABS: BUN Creatinine Ratio 12.2 (10-20); Calcium 8.7 mg/dl (8.6-10.3); Creatinine Clr Calc Pharmacy 36.5 ml/min; Magnesium 1.9 mg/dl (1.7-2.4); Potassium 4.1 mmol/L (3.5-5.1)
--- NOTE | 2024-06-01 09:19 | Urology Progress Note ---
Date of Service June 01, 2024 Assessment & Plan (1) Hematuria: (2) S/P ureteral stent placement: Plan Hematuria in the setting of an indwelling left ureteral stent Urine cultures are pending WBC7.6 Hemoglobin 8.5, has been trending slowly down since admission CT reviewedshe does appear to have some blood within the left kidney Subjectively she seems to be stable or slightly improving Plan to continue with the So catheter and left ureteral stent No surgical intervention right now Continue to trend her hemoglobin Heart rate only 57, normotensive Will plan to continue following and supportive care for now Likely remove So catheter before she is discharged home and we will plan for an outpatient stent removal at a future time Admission and Anticipated Discharge Date Admission Date: May 30, 2024 Subjective 68-year-old female with some clot obstruction of the left kidney and an indwelling stent Doing okay this morning Catheter is draining Was irrigated once overnight but did not have a significant amount of clot Continues to have left flank pain but also was complaining about lower suprapubic pain So catheter remains in place She does not seem to be ambulating a great deal Reports decreased appetite but no fevers, no chills, no vomiting Physical Exam Physical Exam: Catheter in place Urine is translucent through most of the tubing with a few darker areas/clots Results & Data Vital Signs (Past 12 Hours) Vital Signs Temp Pulse Pulse Resp BP Pulse Ox O2 Del Method 06/01/24 07:45 36.7 C 57 L 18 122/78 99 Nasal Cannula 06/01/24 07:00 57 L 06/01/24 03:53 36.9 C 69 18 142/84 H 92 Room Air 05/31/24 22:45 37.1 C 66 18 165/80 H 92 Room Air 05/31/24 21:51 60 PG Care Time/CCT Total # of Minutes Spent Total Time Spent with Patient: Total time spent is greater than 50% in coordination of care (as documented) at patient's floor/unit and/or counseling patient: Coding Level of Care Code 92822 SUB INP/OBS CARE 2/35MIN Diagnoses Hematuria R31.9 S/P ureteral stent placement Z96.0
[2024-06-01] MEDS: SODIUM CHLORIDE 0.9% 500 ML IV ONE (11:18)
[2024-06-01] MEDS: MICONAZOLE NITRATE POWDER 85 GM EXT PRN (11:25)
[2024-06-01] MEDS: POLYETHYLENE (MIRALAX) 17 GM PACK PO SCH (13:51)
[2024-06-01 15:25] LABS: Hematocrit (blood only) 26.3 % (37.0-47.0); Hemoglobin 8.4 g/dl (12.0-16.0); Mean Corpuscular Hemoglobin 26.8 pg (25.0-34.0); Mean Corpuscular Hgb Conc 31.9 g/dL (32.0-36.0); Mean Corpuscular Volume 83.8 fL (80.0-100.0); Mean Platelet Volume 9.2 fL (9.4-12.4); Platelet Count 237 K/uL (130-400); RDW Standard Deviation 51.8 fL (36.4-46.3); Red Blood Count 3.14 M/uL (4.20-5.40)
[2024-06-01] MEDS: ACETAMINOPHEN 500 MG TAB PO SCH (15:42)
[2024-06-01 15:43] LABS: BUN Creatinine Ratio 13.7 (10-20); Calcium 8.6 mg/dl (8.6-10.3); Creatinine Clr Calc Pharmacy 35.7 ml/min
--- NOTE | 2024-06-01 16:13 | Hospitalist Progress Note ---
Date of Service June 01, 2024 Assessment & Plan (1) Complicated UTI (urinary tract infection): Plan: suspected UTI in the setting recent ureteral stent exchange on left on 05/26/[address] Salazar, [facility]. patient presented with subjective fever, chills, UTI symptoms, abd pain, nausea u/a w/ micro worrisome for UTI unfortunately urine cx was not dispatched at time of admission and she has already received IV antibiotics - culture sent after abx given. UC negative BC negative at 24h justus. cont IV Rocephin Urology following, discussed today via tiger text - recommending supportive care and outpatient stent removal. AM CBC, BMP (2) Hematuria: Plan: 2nd to recent ureteral stent exchange 2nd to suspected UTI hematuria is in the setting of Eliquis 5mg BID usage at home for h/o PAF Eliquis now on hold hgb stable at 8.4 repeat cbc am (3) Acute kidney injury: Plan: baseline Cr is <1 Creatinine 06/01 increased to 1.64 s/p 500ml NSS Bolus w/ repeat creatinine at 1.68 Encourage PO intake Lasix and Lisinopril currently on hold (4) S/P ureteral stent placement: Plan: original left-sided ureteral stent placement on 03/22/25 for an obstructing left-sided stone then on 04/19/25 had laser lithotripsy of the left-sided stone along with stent exchange 05/22/24 underwent stent exchange again; stone was completely gone - no left over fragments seen during 05/22 cystoscopy she likely is having bladder spasm in addition to stent pain cannot exclude kidney pain from ascending infection cont flomax add oxybutinin 5mg BID pain meds prn (5) Paroxysmal atrial fibrillation: Plan: discovered during 03/2024 admission is now on Eliquis, meto succ, and dronedarone 400mg BID Eliquis is on hold cont meto succ cont dronedarone BID (6) Hypomagnesemia: Plan: mag 1.6 replace IV mag repeat level am (7) Diabetes mellitus: Plan: a1c 5.4% in 03/2024 loose novolog SSI (8) Anemia: Plan: 2nd to blood loss from hematuria, etc H/H low but acceptable CBC in am (9) Hydronephrosis of left kidney: Plan: in the setting of previous obstructing kidney stone on left - 03/2024 s/p multiple ureteral stents since that time see #1 above Plan will need PT/OT while here Admission and Anticipated Discharge Date Admission Date: May 30, 2024 Subjective Patient seen and examined this morning. Patient reports dizziness today. Also reports no BM for about 4 days. She states she does have a history of constipation. she has been passing gas. She reports lower abdominal pain and low back pain. States she has a hx of low back pain. She denies any SOB or CP. Physical Exam Constitutional: WD/WN, vitals as above Eyes: PERRL, conjunctivae normal, anicteric sclerae Respiratory: normal respiratory effort, lungs clear to auscultation Cardiovascular: RRR, no murmur, no edema Gastrointestinal (Abdomen): +lower abdominal tenderness to palpation . Results & Data Results & Data Vital Signs (Past 12 Hours) Vital Signs Temp Pulse Pulse Resp BP Pulse Ox O2 Del Method 06/01/24 15:06 36.7 C 57 L 20 118/74 98 Room Air 06/01/24 15:00 61 06/01/24 11:50 36.7 C 63 18 132/75 98 Nasal Cannula 06/01/24 08:00 Room Air 06/01/24 07:45 36.7 C 57 L 18 122/78 99 Nasal Cannula 06/01/24 07:00 57 L PG Care Time/CCT Total # of Minutes Spent Total Time Spent with Patient: Total time spent is greater than 50% in coordination of care (as documented) at patient's floor/unit and/or counseling patient: Coding Level of Care Code 36535 SUB INP/OBS CARE 2/35MIN Diagnoses Complicated UTI (urinary tract infection) N39.0 Hematuria R31.9 Acute kidney injury N17.9 S/P ureteral stent placement Z96.0 Paroxysmal atrial fibrillation I48.0 Hypomagnesemia E83.42 Diabetes mellitus E11.9 Anemia, unspecified type D64.9 Anemia type: unspecified type Hydronephrosis of left kidney N13.30 (8) Anemia Anemia type: unspecified type Qualified Code(s): D64.9 - Anemia, unspecified
[2024-06-01] MEDS: DOCUSATE SODIUM 100 MG CAP PO PRN (16:26)
[2024-06-01] MEDS: oxyCODONE HCL IR 5 MG TAB (IMMEDIATE RELEASE) PO PRN (20:10)
[2024-06-01] MEDS: CYCLOBENZAPRINE HCL 5 MG TAB PO PRN (20:26)
[2024-06-01] MEDS: MELATONIN 3 MG TAB PO PRN (21:31)
--- NOTE | 2024-06-02 09:38 | Urology Progress Note ---
Date of Service June 02, 2024 Assessment & Plan (1) Hematuria: (2) S/P ureteral stent placement: (3) Complicated UTI (urinary tract infection): Plan 68-year-old female s/p recent ureteroscopy procedure admitted with complicated UTI and hematuria -Subjectively she reports ongoing left flank pain but seems to be slightly improving -Afebrile with stable vitals at present -Labs today reviewed -hemoglobin stable 8.9, no leukocytosis, creatinine 1.57 -Blood and urine cultures prelim no growth -So intact and draining maroon urine -CT reviewedshe does appear to have some blood within the left kidney and stent is in good position -Hematuria secondary to blood clot within the left kidney and left ureteral stent -Plan to continue with the So catheter and left ureteral stent for maximum drainage -Okay to hand irrigate So catheter as needed for clot/obstruction, retention, suprapubic pain -No plan for intervention -Continue supportive care, trend labs -Likely remove So catheter before she is discharged home and we will plan for an outpatient stent removal at a future time -Urology will follow along Admission and Anticipated Discharge Date Admission Date: May 30, 2024 Subjective Patient seen at bedside today Awake and sitting in bedside chair on arrival eating breakfast No acute distress So intact and draining with hematuria She continues to have left flank pain Denies fever, chills, nausea, vomiting Review of Systems Constitutional: as per Subjective / HPI Genitourinary: as per Subjective / HPI Physical Exam Constitutional: no acute distress Respiratory: no respiratory distress and no labored breathing Neurologic: awake Psychiatric: Orientation: alert and cooperative Genitourinary: So intact and draining with hematuria Results & Data Vital Signs (Past 12 Hours) Vital Signs Temp Pulse Pulse Resp BP Pulse Ox O2 Del Method 06/02/24 07:11 36.6 C 55 L 16 125/71 96 Nasal Cannula 06/02/24 07:00 50 L 06/02/24 02:52 36.7 C 51 L 20 146/83 H 99 Nasal Cannula 06/01/24 23:14 37.1 C 95 H 18 120/76 93 Nasal Cannula 06/01/24 22:00 53 L O2 Flow Rate 06/02/24 07:11 2.5 06/02/24 07:00 06/02/24 02:52 2.5 06/01/24 23:14 2 01/21/25 22:00 PG Care Time/CCT Total # of Minutes Spent Total Time Spent with Patient: Total time spent is greater than 50% in coordination of care (as documented) at patient's floor/unit and/or counseling patient: Coding Level of Care Code 69972 SUB INP/OBS CARE 2/35MIN Diagnoses Hematuria R31.9 S/P ureteral stent placement Z96.0 Complicated UTI (urinary tract infection) N39.0
[2024-06-02 09:47] LABS: Hematocrit (blood only) 28.4 % (37.0-47.0); Hemoglobin 8.9 g/dl (12.0-16.0); Mean Corpuscular Hemoglobin 26.4 pg (25.0-34.0); Mean Corpuscular Hgb Conc 31.3 g/dL (32.0-36.0); Mean Corpuscular Volume 84.3 fL (80.0-100.0); Mean Platelet Volume 9.5 fL (9.4-12.4); Platelet Count 254 K/uL (130-400); RDW Coefficient of Variation 16.8 % (11.5-14.5); RDW Standard Deviation 51.3 fL (36.4-46.3); Red Blood Count 3.37 M/uL (4.20-5.40); White Blood Count 6.24 K/ul (4.8-10.8)
[2024-06-02 10:04] LABS: Creatinine Clr Calc Pharmacy 36.9 ml/min; Potassium 3.5 mmol/L (3.5-5.1)
--- NOTE | 2024-06-02 15:51 | Hospitalist Progress Note ---
Date of Service June 02, 2024 Assessment & Plan (1) Complicated UTI (urinary tract infection): Plan: suspected UTI in the setting recent ureteral stent exchange on left on 05/26/[address] Salazar, [facility]. patient presented with subjective fever, chills, UTI symptoms, abd pain, nausea u/a w/ micro worrisome for UTI unfortunately urine cx was not dispatched at time of admission and she has already received IV antibiotics - culture sent after abx given. UC negative BC negative at 48h justus. cont IV Rocephin Urology following, discussed today via tiger text - recommending supportive care and outpatient stent removal. - okay to resume anticoagulation. stable for dc from urological standpoint pending stabilization of patient's pain. hgb stabilized, 8.9 creatinine downtrending 1.57 AM CBC, BMP (2) Hematuria: Plan: 2nd to recent ureteral stent exchange 2nd to suspected UTI Eliquis resumed 06/02 hgb stable at 8.9 repeat cbc am (3) Acute kidney injury: Plan: baseline Cr is <1 Creatinine downtrending, 1.57 Encourage PO intake Lasix and Lisinopril currently on hold (4) S/P ureteral stent placement: Plan: original left-sided ureteral stent placement on 03/22/25 for an obstructing left-sided stone then on 04/19/25 had laser lithotripsy of the left-sided stone along with stent exchange 05/22/24 underwent stent exchange again; stone was completely gone - no left over fragments seen during 05/22 cystoscopy she likely is having bladder spasm in addition to stent pain cannot exclude kidney pain from ascending infection cont flomax add oxybutynin 5mg BID pain meds prn - oxycodone 5mg PO q 6h for breakthrough pain. (5) Paroxysmal atrial fibrillation: Plan: discovered during 03/2024 admission is now on Eliquis, meto succ, and dronedarone 400mg BID Eliquis resumed 06/02. cont meto succ cont dronedarone BID (6) Hypomagnesemia: Plan: mag 1.6 on admission, following repletion stabilized at 1.9 on 06/01. repeat level am (7) Diabetes mellitus: Plan: a1c 5.4% in 03/2024 loose novolog SSI (8) Anemia: Plan: 2nd to blood loss from hematuria, etc H/H low but trending up. CBC in am (9) Hydronephrosis of left kidney: Plan: in the setting of previous obstructing kidney stone on left - 03/2024 s/p multiple ureteral stents since that time see #1 above Plan will need PT/OT while here Anticipate discharge within the next 1-2 days pending stabilization of patient's pain. Admission and Anticipated Discharge Date Admission Date: May 30, 2024 Subjective Patient seen and examined this morning. Patient still with lower abdominal pain and left flank pain. She reports her dizziness has improved. denies CP or SOB. Physical Exam Constitutional: WD/WN, vitals as above Respiratory: breathing unlabored Cardiovascular: well perfused Gastrointestinal (Abdomen): + BS, tenderness to suprapubic area. Psychiatric: A+Ox3, euthymic affect Results & Data Results & Data Vital Signs (Past 12 Hours) Vital Signs Temp Pulse Pulse Resp BP Pulse Ox O2 Del Method 06/02/24 13:58 63 06/02/24 11:58 37.1 C 67 16 122/76 96 Room Air 06/02/24 08:00 Room Air 06/02/24 07:11 36.6 C 55 L 16 125/71 96 Nasal Cannula 06/02/24 07:00 50 L O2 Flow Rate 06/02/24 13:58 06/02/24 11:58 06/02/24 08:00 06/02/24 07:11 2.5 06/02/24 07:00 PG Care Time/CCT Total # of Minutes Spent Total Time Spent with Patient: Total time spent is greater than 50% in coordination of care (as documented) at patient's floor/unit and/or counseling patient: Coding Level of Care Code 49410 SUB INP/OBS CARE 2/35MIN Diagnoses Complicated UTI (urinary tract infection) N39.0 Hematuria R31.9 Acute kidney injury N17.9 S/P ureteral stent placement Z96.0 Paroxysmal atrial fibrillation I48.0 Hypomagnesemia E83.42 Diabetes mellitus E11.9 Anemia, unspecified type D64.9 Anemia type: unspecified type Hydronephrosis of left kidney N13.30 (8) Anemia Anemia type: unspecified type Qualified Code(s): D64.9 - Anemia, unspecified
[2024-06-02] MEDS: APIXABAN 5 MG TABLET PO SCH (20:29)
[2024-06-03 07:03] LABS: Hematocrit (blood only) 27.6 % (37.0-47.0); Hemoglobin 8.7 g/dl (12.0-16.0); Mean Corpuscular Hemoglobin 26.4 pg (25.0-34.0); Mean Corpuscular Hgb Conc 31.5 g/dL (32.0-36.0); Mean Corpuscular Volume 83.9 fL (80.0-100.0); Mean Platelet Volume 9.5 fL (9.4-12.4); Platelet Count 250 K/uL (130-400); RDW Coefficient of Variation 16.8 % (11.5-14.5); RDW Standard Deviation 51.5 fL (36.4-46.3); Red Blood Count 3.29 M/uL (4.20-5.40); White Blood Count 4.17 K/ul (4.8-10.8)
[2024-06-03 07:25] LABS: BUN Creatinine Ratio 15.1 (10-20); Creatinine Clr Calc Pharmacy 39.7 ml/min; Potassium 3.6 mmol/L (3.5-5.1)
--- NOTE | 2024-06-03 08:08 | Urology Progress Note ---
Date of Service June 03, 2024 Assessment & Plan (1) Hematuria: (2) S/P ureteral stent placement: (3) Complicated UTI (urinary tract infection): Plan 68-year-old female s/p recent ureteroscopy procedure admitted with complicated UTI and hematuria -Still with left sided pain but seems to be slightly improving -Afebrile with stable vitals at present -Labs today reviewed -hemoglobin stable 8.7, no leukocytosis, creatinine downtrending 1.46 today -Urine culture negative; Blood culture prelim no growth x 48hours -So intact and draining light red urine - no clots visualized at time of exam -CT reviewedshe does appear to have some blood within the left kidney and stent is in good position -Hematuria in the setting of blood clot within the left kidney and left ureteral stent s/p recent ureteroscopy procedure -Plan to continue with the So catheter and left ureteral stent for maximum drainage -Okay to hand irrigate So catheter as needed for clot/obstruction, retention, suprapubic pain -No plan for intervention -Anticoagulation restarted yesterday -Continue supportive care, trend labs -Continue Flomax, Oxybutynin -We discussed possible removal of So catheter prior to discharge but she prefers to maintain -We will arrange outpatient stent removal in the urology clinic -Urology will follow Admission and Anticipated Discharge Date Admission Date: May 30, 2024 Subjective Patient seen at bedside today Awake and sitting up in bed on arrival eating breakfast No acute distress So intact and draining light red urine, no clots visualized Reports left sided back/flank/abd pain Denies fever, chills, nausea, vomiting Review of Systems Constitutional: as per Subjective / HPI Genitourinary: as per Subjective / HPI Physical Exam Constitutional: no acute distress Respiratory: no respiratory distress and no labored breathing Neurologic: awake Psychiatric: Orientation: alert and cooperative Genitourinary: So intact and draining with hematuria Results & Data Vital Signs (Past 12 Hours) Vital Signs Temp Pulse Pulse Resp BP Pulse Ox O2 Del Method 06/03/24 05:53 60 06/03/24 03:47 36.6 C 86 18 141/74 H 96 Nasal Cannula 06/02/24 22:33 36.6 C 64 18 159/78 H 91 Room Air 06/02/24 21:55 60 O2 Flow Rate 06/03/24 05:53 06/03/24 03:47 2.5 06/02/24 22:33 06/02/24 21:55 PG Care Time/CCT Total # of Minutes Spent Total Time Spent with Patient: Total time spent is greater than 50% in coordination of care (as documented) at patient's floor/unit and/or counseling patient: Coding Level of Care Code 84522 SUB INP/OBS CARE 2/35MIN Diagnoses Hematuria R31.9 S/P ureteral stent placement Z96.0 Complicated UTI (urinary tract infection) N39.0
[2024-06-03] MEDS: oxyCODONE HCL IR 5 MG TAB (IMMEDIATE RELEASE) PO PRN (12:05)
--- NOTE | 2024-06-03 15:44 | Hospitalist Progress Note ---
Date of Service June 03, 2024 Assessment & Plan (1) Complicated UTI (urinary tract infection): Plan: suspected UTI in the setting recent ureteral stent exchange on left on 05/26/[address] Salazar, [facility]. patient presented with subjective fever, chills, UTI symptoms, abd pain, nausea u/a w/ micro worrisome for UTI unfortunately urine cx was not dispatched at time of admission and she has already received IV antibiotics - culture sent after abx given. UC negative BC negative at 48h justus. cont IV Rocephin (last dose abx 06/05/24), plan to convert to PO on discharge. Urology following, discussed today via tiger text - recommending supportive care and outpatient stent removal. - okay to resume anticoagulation. stable for dc from urological standpoint pending stabilization of patient's pain. hgb stabilized, 8.7 creatinine downtrending 1.46 AM CBC, BMP (2) Hematuria: Plan: 2nd to recent ureteral stent exchange 2nd to suspected UTI Eliquis resumed 06/02 hgb stable at 8.7 repeat cbc am (3) Acute kidney injury: Plan: baseline Cr is <1 Creatinine downtrending, 1.46 Encourage PO intake Lasix and Lisinopril currently on hold (4) S/P ureteral stent placement: Plan: original left-sided ureteral stent placement on 03/22/25 for an obstructing left-sided stone then on 04/19/25 had laser lithotripsy of the left-sided stone along with stent exchange 05/22/24 underwent stent exchange again; stone was completely gone - no left over fragments seen during 05/22 cystoscopy she likely is having bladder spasm in addition to stent pain cannot exclude kidney pain from ascending infection cont flomax and oxybutynin 5mg BID pain meds prn - oxycodone 10mg PO q 6h for breakthrough pain. (5) Paroxysmal atrial fibrillation: Plan: discovered during 03/2024 admission is now on Eliquis, meto succ, and dronedarone 400mg BID Eliquis resumed 06/02. cont meto succ cont dronedarone BID (6) Hypomagnesemia: Plan: mag 1.6 on admission, following repletion stabilized at 1.9 on 06/01. repeat level am (7) Diabetes mellitus: Plan: a1c 5.4% in 03/2024 loose novolog SSI (8) Anemia: Plan: 2nd to blood loss from hematuria, etc H/H low but trending up. CBC in am (9) Hydronephrosis of left kidney: Plan: in the setting of previous obstructing kidney stone on left - 03/2024 s/p multiple ureteral stents since that time see #1 above Plan DVT prophylaxis: Eliquis resumed Full Code. Anticipate discharge within the next 1-2 days pending stabilization of patient's pain. Admission and Anticipated Discharge Date Admission Date: May 30, 2024 Subjective Patient seen and examined this morning. Patient w/ still complaints of lower abdominal pain and left flank pain. She reports her 10/19 after given pain medication. She did have a BM yesterday afternoon. Physical Exam Constitutional: WD/WN, vitals as above Eyes: PERRL, conjunctivae normal, anicteric sclerae Respiratory: breathing unlabored Cardiovascular: well perfused Gastrointestinal (Abdomen): +BS, lower abdominal tenderness Psychiatric: A+Ox3, euthymic affect Results & Data Results & Data Vital Signs (Past 12 Hours) Vital Signs Temp Pulse Pulse Resp BP Pulse Ox O2 Del Method 06/03/24 13:12 92 06/03/24 12:20 36.8 C 59 L 18 130/77 92 Room Air 06/03/24 05:53 60 06/03/24 03:47 36.6 C 86 18 141/74 H 96 Nasal Cannula O2 Flow Rate 06/03/24 13:12 06/03/24 12:20 06/03/24 05:53 06/03/24 03:47 2.5 PG Care Time/CCT Total # of Minutes Spent Total Time Spent with Patient: Total time spent is greater than 50% in coordination of care (as documented) at patient's floor/unit and/or counseling patient: Coding Level of Care Code 67159 SUB INP/OBS CARE 2/35MIN Diagnoses Complicated UTI (urinary tract infection) N39.0 Hematuria R31.9 Acute kidney injury N17.9 S/P ureteral stent placement Z96.0 Paroxysmal atrial fibrillation I48.0 Hypomagnesemia E83.42 Diabetes mellitus E11.9 Anemia, unspecified type D64.9 Anemia type: unspecified type Hydronephrosis of left kidney N13.30 (8) Anemia Anemia type: unspecified type Qualified Code(s): D64.9 - Anemia, unspecified
[2024-06-04 07:42] LABS: Hematocrit (blood only) 26.1 % (37.0-47.0); Hemoglobin 8.3 g/dl (12.0-16.0); Mean Corpuscular Hemoglobin 27.1 pg (25.0-34.0); Mean Corpuscular Hgb Conc 31.8 g/dL (32.0-36.0); Mean Corpuscular Volume 85.3 fL (80.0-100.0); Mean Platelet Volume 9.4 fL (9.4-12.4); Platelet Count 269 K/uL (130-400); RDW Coefficient of Variation 16.9 % (11.5-14.5); RDW Standard Deviation 52.7 fL (36.4-46.3); Red Blood Count 3.06 M/uL (4.20-5.40); White Blood Count 4.37 K/ul (4.8-10.8)
[2024-06-04 08:09] LABS: BUN Creatinine Ratio 18.3 (10-20); Calcium 8.9 mg/dl (8.6-10.3); Creatinine Clr Calc Pharmacy 45.7 ml/min; Magnesium 1.6 mg/dl (1.7-2.4); Potassium 3.6 mmol/L (3.5-5.1)
--- NOTE | 2024-06-04 15:32 | Urology Progress Note ---
Date of Service June 04, 2024 Assessment & Plan (1) Hematuria: (2) S/P ureteral stent placement: (3) Complicated UTI (urinary tract infection): Plan 68-year-old female s/p recent ureteroscopy procedure admitted with complicated UTI and hematuria -Still with left sided pain likely related to the stent but seems to be slightly improved from yesterday -So was removed yesterday and she is voiding without issue and reports urine is pink -Afebrile with stable vitals at present -Labs today reviewed -hemoglobin 8.3, no leukocytosis, creatinine 1.26 -Urine culture negative; Blood culture prelim no growth x 48hours -CT reviewedshe does appear to have some blood within the left kidney and stent is in good position -Hematuria in the setting of blood clot within the left kidney and left ureteral stent s/p recent ureteroscopy procedure -No plan for intervention -Continue supportive care, trend labs -Continue Flomax, Oxybutynin -Anticoagulation restarted 06/02 per primary -We will arrange outpatient stent removal in the urology clinic -Expected clinical course reviewed with patient and , all questions were answered -Urology will follow peripherally. Please call with any questions or concerns. Admission and Anticipated Discharge Date Admission Date: May 30, 2024 Subjective Patient seen at bedside today Awake and resting in bed on arrival No acute distress at bedside So removed yesterday and she is voiding spontaneously she reports some improvement in hematuria-reports urine is pink Still with some left-sided pain Denies fever, chills, nausea, vomiting Review of Systems Constitutional: as per Subjective / HPI Genitourinary: as per Subjective / HPI Physical Exam Constitutional: no acute distress Respiratory: no respiratory distress and no labored breathing Neurologic: awake Psychiatric: Orientation: alert and cooperative Results & Data Vital Signs (Past 12 Hours) Vital Signs Temp Pulse Resp BP Pulse Ox O2 Del Method 06/04/24 14:41 37 C 56 L 18 130/77 93 Room Air 06/04/24 08:02 36.5 C 69 18 179/76 H 95 Room Air PG Care Time/CCT Total # of Minutes Spent Total Time Spent with Patient: Total time spent is greater than 50% in coordination of care (as documented) at patient's floor/unit and/or counseling patient: Coding Level of Care Code 26276 SUB INP/OBS CARE 2/35MIN Diagnoses Hematuria R31.9 S/P ureteral stent placement Z96.0 Complicated UTI (urinary tract infection) N39.0
--- NOTE | 2024-06-04 15:53 | Hospitalist Progress Note ---
Date of Service June 04, 2024 Assessment & Plan (1) Complicated UTI (urinary tract infection): Plan: suspected UTI in the setting recent ureteral stent exchange on left on 05/26/[address] Salazar, [facility]. patient presented with subjective fever, chills, UTI symptoms, abd pain, nausea original left-sided ureteral stent placement on 03/22/25 for an obstructing left-sided stone then on 04/19/25 had laser lithotripsy of the left-sided stone along with stent exchange 05/22/24 underwent stent exchange again; stone was completely gone - no left over fragments seen during 05/22 cystoscopy u/a w/ micro worrisome for UTI unfortunately urine cx was not dispatched at time of admission and she has already received IV antibiotics - culture sent after abx given. UC negative BC negative at 48h justus. cont IV Rocephin (last dose abx 06/05/24) Urology following - recommending supportive care and outpatient stent removal. - okay to resume anticoagulation. stable for dc from urological standpoint pending stabilization of patient's pain. cont flomax and oxybutynin 5mg BID pain meds prn - oxycodone 10mg PO q 6h for breakthrough pain. hgb stabilized, 8.3 creatinine downtrending 1.26 AM CBC, BMP (2) Acute kidney injury: Plan: baseline Cr is <1 Creatinine downtrending, 1.26 Encourage PO intake Lasix and Lisinopril currently on hold - can likely resume on d/c (3) Hematuria: Plan: 2nd to recent ureteral stent exchange 2nd to suspected UTI Eliquis resumed 06/02 hgb stable at 8.3 repeat cbc am (4) Hypomagnesemia: Plan: mag 1.6 on admission, 1.6 on 06/04 s/p repletion - continue to replete as necessary AM Mag. (5) Diabetes mellitus: Plan: a1c 5.4% in 03/2024 loose novolog SSI (6) Hydronephrosis of left kidney: Plan: in the setting of previous obstructing kidney stone on left - 03/2024 s/p multiple ureteral stents since that time see #1 above Plan Chronic conditions: A fib: continue Eliquis, Metoprolol and dronedarone DVT prophylaxis: Eliquis resumed Full Code. Anticipate discharge tomorrow 06/05. Updated extensively at bedside 06/05 discussed w/ urology via tiger text 06/05. Admission and Anticipated Discharge Date Admission Date: May 30, 2024 Subjective Patient seen and examined this morning. Patient at bedside. patient reports that she "doesn't feel like going home today". Reports lower abdominal pain and left flank pain but states that it is better than previous days. reports that the oxycodone has aided in her pain control. Physical Exam Constitutional: WD/WN, vitals as above Respiratory: breathing unlabored Cardiovascular: well perfused Gastrointestinal (Abdomen): +BS, tenderness to palpation on L side o f abdomen. Psychiatric: A+Ox3, euthymic affect Results & Data Results & Data Vital Signs (Past 12 Hours) Vital Signs Temp Pulse Resp BP Pulse Ox O2 Del Method 06/04/24 14:41 37 C 56 L 18 130/77 93 Room Air 06/04/24 08:02 36.5 C 69 18 179/76 H 95 Room Air PG Care Time/CCT Total # of Minutes Spent Total Time Spent with Patient: Total time spent is greater than 50% in coordination of care (as documented) at patient's floor/unit and/or counseling patient: Coding Level of Care Code 00163 SUB INP/OBS CARE 2/35MIN Diagnoses Complicated UTI (urinary tract infection) N39.0 Acute kidney injury N17.9 Hematuria R31.9 Hypomagnesemia E83.42 Diabetes mellitus E11.9 Hydronephrosis of left kidney N13.30
[2024-06-04] MEDS: MAGNESIUM SULFATE / D5W 1 GM/100 ML BAG IV ONE (17:03)
[2024-06-05 06:17] LABS: Hematocrit (blood only) 26.8 % (37.0-47.0); Hemoglobin 8.3 g/dl (12.0-16.0); Mean Corpuscular Hemoglobin 26.1 pg (25.0-34.0); Mean Corpuscular Volume 84.3 fL (80.0-100.0); Mean Platelet Volume 9.3 fL (9.4-12.4); Platelet Count 282 K/uL (130-400); RDW Coefficient of Variation 16.7 % (11.5-14.5); RDW Standard Deviation 51.4 fL (36.4-46.3); Red Blood Count 3.18 M/uL (4.20-5.40); White Blood Count 4.49 K/ul (4.8-10.8)
[2024-06-05 06:25] LABS: BUN Creatinine Ratio 18.5 (10-20); Calcium 8.8 mg/dl (8.6-10.3); Creatinine Clr Calc Pharmacy 48.4 ml/min; Potassium 3.8 mmol/L (3.5-5.1)
[2024-06-05] MEDS: HYDROmorphone INJ 0.5 MG/0.5 ML SYR IV PRN (08:17)
--- NOTE | 2024-06-05 13:18 | Hospitalist Progress Note ---
Date of Service June 05, 2024 Assessment & Plan (1) Complicated UTI (urinary tract infection): Plan: Suspected UTI in the setting recent ureteral stent exchange on left on 05/26/[address] aSlazar, [facility]. patient presented with subjective fever, chills, UTI symptoms, abd pain, nausea original left-sided ureteral stent placement on 03/22/25 for an obstructing left-sided stone then on 04/19/25 had laser lithotripsy of the left-sided stone along with stent exchange 05/22/24 underwent stent exchange again; stone was completely gone - no left over fragments seen during 05/22 cystoscopy u/a w/ micro worrisome for UTI unfortunately urine cx was not dispatched at time of admission and she has already received IV antibiotics - culture sent after abx given. UC negative BC negative at 48h justus. Cont IV Rocephin (last dose abx 06/05/24) Urology following - recommending supportive care and outpatient stent removal. - okay to resume anticoagulation. Stable for dc from urological standpoint pending stabilization of patient's pain. cont flomax and oxybutynin 5mg BID pain meds prn - oxycodone 10mg PO q 6h for breakthrough pain. hgb stabilized, 8.3 creatinine downtrending 1.19 AM CBC, BMP (2) Acute kidney injury: Plan: baseline Cr is <1 Creatinine downtrending, 1.19 Encourage PO intake Lasix and Lisinopril currently on hold - can likely resume on d/c Constipation - Miralax and colace. Hold Iron for now until BMs resume. (3) Hematuria: Plan: 2nd to recent ureteral stent exchange 2nd to suspected UTI Per patient, now almost clear Eliquis resumed 06/02 hgb stable at 8.3 repeat cbc am (4) Hypomagnesemia: Plan: mag 1.6 on admission, 1.6 on 06/04 s/p repletion - continue to replete as necessary AM Mag. (5) Diabetes mellitus: Plan: a1c 5.4% in 03/2024 loose novolog SSI (6) Hydronephrosis of left kidney: Plan: in the setting of previous obstructing kidney stone on left - 03/2024 s/p multiple ureteral stents since that time see #1 above Plan Chronic conditions: A fib: continue Eliquis, Metoprolol and dronedarone DVT prophylaxis: Eliquis resumed Full Code. Anticipate discharge later today or tomorrow 06/06. Updated extensively at bedside 06/05 discussed w/ urology via tiger text 06/05. Admission and Anticipated Discharge Date Admission Date: May 30, 2024 Subjective Patient seen and examined this morning. Amber reports that she does not feel great today, was nauseous and unable to eat her breakfast this morning. Reports lower abdominal pain and bilateral flank pain but states that unchanged in comparison to previous days. She takes oxycodone with improvement of her pain. She states she has not had a bowel movement in 2 days and took Miralax this morning. She is wondering if she feels better, could she go home tomorrow. Review of Systems Constitutional: no fever, no chills and no body aches Respiratory: no cough and no dyspnea Cardiovascular: no chest pain Gastrointestinal: + abdominal pain (bilateral lower (groin )), + nausea and + constipation; no vomiting Genitourinary: no dysuria, no difficulty urinating, no urinary frequency, no urinary hesitancy, no urinary urgency and no hematuria Musculoskeletal: + back pain (Bilateral Flank area); no s welling Integumentary: + rash (R groin, yeast) Physical Exam Constitutional: WD/WN, vitals as above Eyes: PERRL, conjunctivae normal, anicteric sclerae Respiratory: normal respiratory effort, lungs clear to auscultation Cardiovascular: RRR, no murmur, no edema Gastrointestinal (Abdomen): Inspection/Auscultation: normal bowel sounds Percussion/Palpation: abdomen soft; abdomen nontender Skin: R groin mild erythema, powder in place, no open areas. Results & Data Results & Data Vital Signs (Past 12 Hours) Vital Signs Temp Pulse Resp BP Pulse Ox O2 Del Method 06/05/24 08:28 36.7 C 51 L 20 149/84 H 92 Room Air 06/05/24 08:00 Room Air Laboratory Results 06/05/24 06/05/24 06/05/24 Range/Units 12:02 07:58 05:41 WBC 4.49 L (4.8-10.8) K/ul RBC 3.18 L (4.20-5.40) M/uL Hgb 8.3 L (12.0-16.0) g/dl Hct 26.8 L (37.0-47.0) % MCV 84.3 (80.0-100.0) fL MCH 26.1 (25.0-34.0) pg MCHC 31.0 L (32.0-36.0) g/dL RDW Std Deviation 51.4 H (36.4-46.3) fL RDW Coeff of Nicolas 16.7 H (11.5-14.5) % Plt Count 282 (130-400) K/uL MPV 9.3 L (9.4-12.4) fL Sodium 142 (136-145) mmol/L Potassium 3.8 (3.5-5.1) mmol/L Chloride 104 (98-107) mmol/L Carbon Dioxide 32 (21-32) mmol/L Anion Gap 6 (3-11) BUN 22 (6-23) mg/dl Creatinine 1.19 (0.6-1.2) mg/dl Est Cr Clr Drug Dosing 48.4 ml/min eGFR 50.11 BUN/Creatinine Ratio 18.5 (10-20) Glucose 97 (70-99(Fasting)) mg/dl POC Glucose 106 H 111 H (70-99) mg/dl Calcium 8.8 (8.6-10.3) mg/dl 06/04/24 06/04/24 Range/Units 20:24 17:19 WBC (4.8-10.8) K/ul RBC (4.20-5.40) M/uL Hgb (12.0-16.0) g/dl Hct (37.0-47.0) % MCV (80.0-100.0) fL MCH (25.0-34.0) pg MCHC (32.0-36.0) g/dL RDW Std Deviation (36.4-46.3) fL RDW Coeff of Nicolas (11.5-14.5) % Plt Count (130-400) K/uL MPV (9.4-12.4) fL Sodium (136-145) mmol/L Potassium (3.5-5.1) mmol/L Chloride (98-107) mmol/L Carbon Dioxide (21-32) mmol/L Anion Gap (3-11) BUN (6-23) mg/dl Creatinine (0.6-1.2) mg/dl Est Cr Clr Drug Dosing ml/min eGFR BUN/Creatinine Ratio (10-20) Glucose (70-99(Fasting)) mg/dl POC Glucose 116 H 117 H (70-99) mg/dl Calcium (8.6-10.3) mg/dl PG Care Time/CCT Total # of Minutes Spent Total Time Spent with Patient: Total time spent is greater than 50% in coordination of care (as documented) at patient's floor/unit and/or counseling patient: Coding [place] [address] SUB INP/OBS CARE 2/35MIN Patient Type Established Medical Decision Making Moderate Complexity Diagnoses Complicated UTI (urinary tract infection) N39.0 Acute kidney injury N17.9 Hematuria R31.9 Hypomagnesemia E83.42 Diabetes mellitus E11.9 Hydronephrosis of left kidney N13.30
[2024-06-06 06:26] LABS: Hematocrit (blood only) 27.2 % (37.0-47.0); Hemoglobin 8.6 g/dl (12.0-16.0); Mean Corpuscular Hemoglobin 26.7 pg (25.0-34.0); Mean Corpuscular Hgb Conc 31.6 g/dL (32.0-36.0); Mean Corpuscular Volume 84.5 fL (80.0-100.0); Mean Platelet Volume 9.2 fL (9.4-12.4); Platelet Count 301 K/uL (130-400); RDW Coefficient of Variation 16.9 % (11.5-14.5); RDW Standard Deviation 51.8 fL (36.4-46.3); Red Blood Count 3.22 M/uL (4.20-5.40); White Blood Count 4.72 K/ul (4.8-10.8)
[2024-06-06 06:42] LABS: BUN Creatinine Ratio 18.5 (10-20); Calcium 9.3 mg/dl (8.6-10.3); Creatinine Clr Calc Pharmacy 44.3 ml/min; Magnesium 1.8 mg/dl (1.7-2.4); Potassium 3.7 mmol/L (3.5-5.1)
[2024-06-06] MEDS: HYDROcodone/ACETAMINOPHEN 10/325 TAB PO PRN (09:31)
[2024-06-06] MEDS: PROCHLORPERAZINE MALEATE 5 MG TAB PO SCH (14:00)
[2024-06-06] MEDS: MAGNESIUM HYDROXIDE SUSP 30 ML UDC PO PRN (14:01)
--- NOTE | 2024-06-06 15:24 | Hospitalist Progress Note ---
<Statement entered by Rufina Vivar MD - 06/06/24 19:21> I have reviewed vital signs, chart notes, labs and imaging. I have also discussed the management of the patient with the CRISTINE and I agree with the exam findings documented in the Progress note and the documented assessment and plan unless otherwise stated below. Amber has ongoing stent pain and nausea. the pain is in her flank not dysuria reviewed outpatient medication record including PDMP she typically takes [place] 10/325 twice daily which is prescribed by her pain physician in [place] will try stopping oxycodone and using [place] every 6 hours as needed, also added scheduled Premeal Compazine p.o. she should be able to go home by tomorrow Date of Service June 06, 2024 Assessment & Plan (1) Complicated UTI (urinary tract infection): Plan: Suspected UTI in the setting recent ureteral stent exchange on left on 05/26/[address] Salazar, [facility]. patient presented with subjective fever, chills, UTI symptoms, abd pain, nausea original left-sided ureteral stent placement on 03/22/25 for an obstructing left-sided stone then on 04/19/25 had laser lithotripsy of the left-sided stone along with stent exchange 05/22/24 underwent stent exchange again; stone was completely gone - no left over fragments seen during 05/22 cystoscopy u/a w/ micro worrisome for UTI unfortunately urine cx was not dispatched at time of admission and she has already received IV antibiotics - culture sent after abx given. UC negative BC negative at 48h justus. Rocephin (last dose abx 06/05/24) Urology following - recommending supportive care and outpatient stent removal. - okay to resume anticoagulation. Stable for dc from urological standpoint pending stabilization of patient's pain. cont flomax and oxybutynin 5mg BID pain meds prn - changes to home meds of hydrocodone/apap 10/325 Q6 hours PRN. hgb stabilized, 8.3 creatinine 1.3 Compazine TID scheduled for nausea AM CBC, BMP (2) Acute kidney injury: Plan: baseline Cr is <1. Cr 1.3 today Encourage PO intake Lasix and Lisinopril currently on hold - can likely resume on d/c Constipation - Miralax and colace. Hold Iron for now until BMs resume. (3) Hematuria: Plan: 2nd to recent ureteral stent exchange 2nd to suspected UTI Per patient, now almost clear Eliquis resumed 06/02 hgb stable at 8.3 repeat cbc am (4) Hypomagnesemia: Plan: mag 1.6 on admission, 1.8 on 06/06 s/p repletion - continue to replete as necessary (5) Diabetes mellitus: Plan: a1c 5.4% in 03/2024 loose novolog SSI (6) Hydronephrosis of left kidney: Plan: in the setting of previous obstructing kidney stone on left - 03/2024 s/p multiple ureteral stents since that time see #1 above Plan Chronic conditions: A fib: continue Eliquis, Metoprolol and dronedarone DVT prophylaxis: Eliquis resumed Full Code. Anticipate discharge later today or tomorrow 06/07. Updated extensively at bedside 06/05 discussed w/ urology via tiger text 06/05. Admission and Anticipated Discharge Date Admission Date: May 30, 2024 Subjective Patient seen and examined this morning. Amber reports that she is feeling a little better than yesterday. Pain still in bilateral lower abdomen/groin and bilateral mid/lower back. She takes oxycodone with improvement of her pain, is on Hydrocodone/APAP at home. She states she has not had a bowel movement in 3 days and took Miralax again this morning. Discussed potential discharge later today or tomorrow if pain and nausea are well controlled. Amber states she feels depressed today, denies SI/HI. She thinks she would feel better if she could go home. Review of Systems Constitutional: no fever, no chills and no body aches Respiratory: no cough and no dyspnea Cardiovascular: no chest pain Gastrointestinal: + abdominal pain (bilateral lower (groin )), + nausea and + constipation; no vomiting Genitourinary: no dysuria, no difficulty urinating, no urinary frequency, no urinary hesitancy, no urinary urgency and no hematuria Musculoskeletal: + back pain (Bilateral Flank area); no s welling Psychiatric: + depression; no suicidal ideation Physical Exam Constitutional: WD/WN, vitals as above Eyes: PERRL, conjunctivae normal, anicteric sclerae Respiratory: normal respiratory effort, lungs clear to auscultation Cardiovascular: RRR, no murmur, no edema Gastrointestinal (Abdomen): Inspection/Auscultation: normal bowel sounds Percussion/Palpation: abdomen soft; abdomen nontender Skin: Skin warm and dry Psychiatric: Orientation: alert and oriented x 3 Apperance: not disheveled Speech: normal rate/rhythm/volume of speech Mood: + depressed mood Suicidal Thoughts: denies suicidal thoughts Homicidal Thoughts: denies homicidal thoughts Results & Data Results & Data Vital Signs (Past 12 Hours) Vital Signs Temp Pulse Resp BP Pulse Ox O2 Del Method 06/06/24 13:08 Room Air 06/06/24 12:25 36.7 C 59 L 18 170/90 H 92 Room Air 06/06/24 08:00 Room Air 06/06/24 07:56 36.9 C 56 L 20 137/72 92 Room Air 06/06/24 03:45 36.4 C L 58 L 18 119/71 98 Room Air Laboratory Results 06/06/24 06/06/24 06/06/24 Range/Units 12:09 07:42 06:02 WBC 4.72 L (4.8-10.8) K/ul RBC 3.22 L (4.20-5.40) M/uL Hgb 8.6 L (12.0-16.0) g/dl Hct 27.2 L (37.0-47.0) % MCV 84.5 (80.0-100.0) fL MCH 26.7 (25.0-34.0) pg MCHC 31.6 L (32.0-36.0) g/dL RDW Std Deviation 51.8 H (36.4-46.3) fL RDW Coeff of Nicolas 16.9 H (11.5-14.5) % Plt Count 301 (130-400) K/uL MPV 9.2 L (9.4-12.4) fL Sodium 141 (136-145) mmol/L Potassium 3.7 (3.5-5.1) mmol/L Chloride 104 (98-107) mmol/L Carbon Dioxide 31 (21-32) mmol/L Anion Gap 6 (3-11) BUN 24 H (6-23) mg/dl Creatinine 1.30 H (0.6-1.2) mg/dl Est Cr Clr Drug Dosing 44.3 ml/min eGFR 45.07 BUN/Creatinine Ratio 18.5 (10-20) Glucose 94 (70-99(Fasting)) mg/dl POC Glucose 102 H 106 H (70-99) mg/dl Calcium 9.3 (8.6-10.3) mg/dl Magnesium 1.8 (1.7-2.4) mg/dl 06/05/24 06/05/24 Range/Units 20:29 16:56 WBC (4.8-10.8) K/ul RBC (4.20-5.40) M/uL Hgb (12.0-16.0) g/dl Hct (37.0-47.0) % MCV (80.0-100.0) fL MCH (25.0-34.0) pg MCHC (32.0-36.0) g/dL RDW Std Deviation (36.4-46.3) fL RDW Coeff of Nicolas (11.5-14.5) % Plt Count (130-400) K/uL MPV (9.4-12.4) fL Sodium (136-145) mmol/L Potassium (3.5-5.1) mmol/L Chloride (98-107) mmol/L Carbon Dioxide (21-32) mmol/L Anion Gap (3-11) BUN (6-23) mg/dl Creatinine (0.6-1.2) mg/dl Est Cr Clr Drug Dosing ml/min eGFR BUN/Creatinine Ratio (10-20) Glucose (70-99(Fasting)) mg/dl POC Glucose 120 H 117 H (70-99) mg/dl Calcium (8.6-10.3) mg/dl Magnesium (1.7-2.4) mg/dl PG Care Time/CCT Total # of Minutes Spent Total Time Spent with Patient: Total time spent is greater than 50% in coordination of care (as documented) at patient's floor/unit and/or counseling patient: Coding [place] [address] SUB INP/OBS CARE 2/35MIN Patient Type Established History Expanded Problem Focused Exam Expanded Problem Focused Medical Decision Making Moderate Complexity Diagnoses Complicated UTI (urinary tract infection) N39.0 Acute kidney injury N17.9 Hematuria R31.9 Hypomagnesemia E83.42 Diabetes mellitus E11.9 Hydronephrosis of left kidney N13.30
[2024-06-07 07:12] VITALS: RESP 18; TEMP 97.7; O2SAT 98
[2024-06-07 08:57] LABS: BUN Creatinine Ratio 16.8 (10-20); Calcium 9.8 mg/dl (8.6-10.3); Potassium 3.8 mmol/L (3.5-5.1)
--- NOTE | 2024-06-07 11:25 | Discharge Summary ---
Discharge Summary Date of Service June 07, 2024 Principal Dx & Hospital Course #1 = Principal Diagnosis (1) Complicated UTI (urinary tract infection): Suspected UTI in the setting recent ureteral stent exchange on left on 05/26/[address] Salazar, patient presented with subjective fever, chills, UTI symptoms, abd pain, nausea. Her UA was concerning for UTI and she was treated with a course of ceftriaxone. Her blood cultures were negative. Continued on flomax. Started on scheduled oxybutynin to help with her pain. Was continuing to have pain and nausea which has improved with her home [place] and scheduled Compazine. Rx sent for short course of oxybutynin and Compazine. Seen by urology - recommended supportive care and outpatient sent removal. Okay to continue Eliquis. Urology CRISTINE notified on day of discharge of Amber's discharge. (2) Acute kidney injury: baseline Cr is <1. Cr 1.31 today Encourage PO intake - 2L per day. BMP ordered for PCP follow up. (3) Hematuria: resolved. Eliquis resumed. Hgb stable. (4) Hypomagnesemia: S/p repletion and ow resolved. (5) Diabetes mellitus: a1c 5.4% in 03/2024. Continue meformin at discharge. Plan Chronic conditions: A fib: continue Eliquis, Metoprolol and dronedarone Dispo:discharge to home today with outpatient labs and urology follow up Discussed with Ondina urology CRISTINE Notes For Next Care Provider BMP ordered with results to PCP Medication Changes From Visit compazine scheduled TID oxybutyin scheduled BID Admission HPI Per Admitting Provider Patient is a 68-year-old female with a past medical history of A-fib, HFpEF, T2DM, hypertension, COPD on chronic oxygen 2 L, peripheral neuropathy. and left ureteral stents placed 05/26 due to nephrolithiasis. She presents today due to diffuse pain. She is being admitted for suspected UTI with ARELY and leukocytosis. Patient to receive IV antibiotics, urology consulted, n.p.o. after midnight. Patient seen at bedside. She stated that this morning she had diffuse pain all over her stomach and back. She also endorses fevers, chills, nausea, and decreased urination. She states she has not peed all day. She also endorses hematuria, however chronic. Her abdominal pain is relieved with 4 Mg morphine however now has developed nausea. She still has bilateral back pain. states she has been unable to eat or drink all day due to the pain. She endorses a sore throat for the past few days. Patient denies rhinorrhea, cough, sputum production, dyspnea, dyspnea on exertion, chest pain, diarrhea, constipation,melena, blood in stool. She does not use nicotine products or drink alcohol. She denies past history of cancer. She uses 2 to 3 L of oxygen at baseline for COPD. She did take her a.m. medications but she does not remember if she took her evening medications. She wishes to be full code at this time. Discharge Exam General: NAD, VS as above Resp: normal respiratory effort, lungs clear to auscultation CV: RRR, no murmur, Abd: normal bowel sounds, non tender, Back: no CVA tenderness Extremities: Moves all extremities, no edema Neuro: A&O x3, Discharge Plan Discharge Items Patient Disposition: Home - Self-Care Reason For Visit: RECENT STENTS, LEUKOCYTOSIS Discharge Diagnosis: UTI, stent in place Activity: Resume your previous activity Driving/Machine Use: do not drive while taking narcotics Weightbearing: Full weightbearing Non-emergency contact: Primary Care Provider Call non-emergency contact if: you have any medication questions, your symptoms worsen, your pain is not controlled and your temperature is above 101 Follow-up/Referrals: Yamileth Chen, C.R.N.P [Primary Care Provider] - (Follow up in one week ) Corey Salazar MD [Physician] - (f/u for stent removal ) Diet: Carb Consistent or DM2 and Heart Healthy Addtl Attending Provider Instructions: Ms. El, Fredy were hospitalized after having pain and difficulty urinating found to have a urinary tract infection (UTI). This was treated with IV antibiotics and you completed the whole course while you were here. You also had worsening nausea, which is likely secondary to the pain. This has responded well to Compazine and I have sent a prescription for this to your pharmacy. Hopefully when the stent is removed and the pain decreases you will not need this. Continue your home Hydrocodone for pain. You have also been started on oxybutynin for pain associated with the stents. This can be stopped when your stent is removed. Urology is aware that you are being discharged today, they will contact you to schedule an appointment for removal. You had a slight bump in your kidney function while you were here - this is treated with good hydration - at least 2L daily. It is important that you continue to increase your oral hydration. I have ordered labs for you to have done on Sunday 06/11, these results will go to your PCP. please DO NOT TAKE your lisinopril until you discuss your results with your PCP. Continue to take miralax daily to keep your bowel movements soft. I have sent in a prescription in to the pharmacy - this is an over the counter medication, and if it is not covered, please purchase this from the pharmacy. Please call your PCP/urology if you have any worsening pain, difficulty urinating, hematuria or fevers/chills. Return to ER with chest pain, SOB or inability to urinate. Take Care! -SANJUANA Santacruz Pending Studies at Discharge: No Stand-Alone Forms: My [facility] [employer], Smoking Cessation Medications and DC Order Prescriptions: New polyethylene glycol 3350 [Miralax] 17 gram Powder In Packet 17 g PO 1XD Qty: 30 0RF prochlorperazine maleate 5 mg Tablet 5 mg PO TID 10 Days Qty: 30 0RF oxybutynin chloride 5 mg Tablet 5 mg PO BID 10 Days Qty: 20 0RF Continued Multaq 400 mg tablet 400 mg PO BID Rx Instructions: must administer with a meal/food metoprolol succinate 200 mg tablet extended release 24 hr 200 mg PO DAILY Qty: 30 11RF sertraline 100 mg tablet 100 mg PO BID lamotrigine [Lamictal] 25 mg tablet 50 mg PO QAM trazodone 150 mg tablet 300 mg PO HS methenamine hippurate 1 gram tablet 1 g PO AMHS Hold Instructions: HOLD while taking antibiotics (cefuroxime); may resume in 5 days aripiprazole [Abilify] 20 mg tablet 20 mg PO HS atorvastatin [Lipitor] 80 mg tablet 80 mg PO QAM ondansetron HCl 4 mg tablet 4 mg PO Q8 PRN (Reason: Nausea/Vomiting) metformin 500 mg tablet extended release 24 hr 1,000 mg PO BID cyclobenzaprine 5 mg tablet 5 mg PO HS PRN (Reason: Muscle Spasm) ezetimibe [Zetia] 10 mg tablet 10 mg PO HS Trelegy Ellipta 200-62.5-25 mcg blister with device 1 ea INHALATION QAM Eliquis 5 mg tablet 5 mg PO BID Qty: 60 5RF lidocaine [Lidoderm] 5 % adhesive patch,medicated 2 patch topical DAILY Qty: 30 0RF Rx Instructions: leave on most painful area for up to 12 hrs; remove for 12 hours. cyanocobalamin (vitamin B-12) 1,000 mcg tablet 1,000 mcg PO QAM Rx Instructions: purchase [id number] tamsulosin [Flomax] 0.4 mg capsule 0.4 mg PO QAM furosemide [Lasix] 20 mg tablet 20 mg PO DAILY PRN (Reason: swelling) Rx Instructions: for weight gain of more than 2-3 pounds over 1-2 days OR swelling of legs filled 03/20/24 90 day supply ferrous sulfate 325 mg (65 mg iron) tablet,delayed release (DR/EC) 325 mg PO QAM Rx Instructions: purchase [id number] Held lisinopril 20 mg tablet 20 mg PO BID Hold Instructions: Provider's Order - discuss with PCP after lab work is done. Discontinued sulfamethoxazole-trimethoprim [Bactrim DS] 800-160 mg tablet 1 tab PO BID Qty: 14 0RF Discharge Orders: Discharge Order (Routine); Ordered 06/07/24 Ordered By: Neeta Marcos Admission Data Admit Date/Time: 05/30/24 22:59 Attending Provider: Rufina Vivar Admit Provider: Raheel Mckeon Primary Care Provider: Yamileth Chen Other Providers: Sunny Goldsmith; Raheel Mckeon Hospital Stay Data Consultations 05/30/24 22:24 Consult Urology Routine 05/30/24 22:30 ED Decision to Admit Stat Diagnostic Imagining Performed 05/30/24 19:34 CT abd pelvis wo con Stat Pending Results Patient Have Any Pending Studies at Discharge: No Discharge Instructions Given to Patient (Per Discharging Provider) Ms. El, Fredy were hospitalized after having pain and difficulty urinating found to have a urinary tract infection (UTI). This was treated with IV antibiotics and you completed the whole course while you were here. You also had worsening nausea, which is likely secondary to the pain. This has responded well to Compazine and I have sent a prescription for this to your pharmacy. Hopefully when the stent is removed and the pain decreases you will not need this. Continue your home Hydrocodone for pain. You have also been started on oxybutynin for pain associated with the stents. This can be stopped when your stent is removed. Urology is aware that you are being discharged today, they will contact you to schedule an appointment for removal. You had a slight bump in your kidney function while you were here - this is treated with good hydration - at least 2L daily. It is important that you continue to increase your oral hydration. I have ordered labs for you to have done on Sunday 06/11, these results will go to your PCP. please DO NOT TAKE your lisinopril until you discuss your results with your PCP. Continue to take miralax daily to keep your bowel movements soft. I have sent in a prescription in to the pharmacy - this is an over the counter medication, and if it is not covered, please purchase this from the pharmacy. Please call your PCP/urology if you have any worsening pain, difficulty urinating, hematuria or fevers/chills. Return to ER with chest pain, SOB or inability to urinate. Take Care! -SANJUANA Santacruz Total Time Total Time Spent Total Time Spent (In Minutes): Time spent day of discharge 40 minutes including direct patient care, medication reconciliation, documentation, review of labs and images, and coordination of care. Coding Level of Care Code 74089 INP/OBS DISCH >30 MIN Diagnoses Complicated UTI (urinary tract infection) N39.0 Acute kidney injury N17.9 Hematuria R31.9 Hypomagnesemia E83.42 Diabetes mellitus E11.9
[2024-06-07 15:24] VITALS: BP 133/65; PULSE 63
== END 2024-06-07 15:53 | disposition home or self-care (01) | DRG 920 ==
LOC: ED 18:48 → SUATTDRO 22:59 → EDINP 22:59 → 2N 05-31 02:51 → 3W 06-06 12:25
DX: K59.00 Constipation, unspecified; N30.01 Acute cystitis with hematuria; E83.42 Hypomagnesemia; I50.32 Chronic diastolic (congestive) heart failure; J44.9 Chronic obstructive pulmonary disease, unspecified; E66.01 Morbid (severe) obesity due to excess calories; I69.354 Hemiplegia and hemiparesis following cerebral infarction affecting left non-dominant side; Z79.84 Long term (current) use of oral hypoglycemic drugs; R93.5 Abnormal findings on diagnostic imaging of other abdominal regions, including retroperitoneum; E11.42 Type 2 diabetes mellitus with diabetic polyneuropathy; D64.9 Anemia, unspecified; I48.0 Paroxysmal atrial fibrillation; Z98.890 Other specified postprocedural states; Z79.01 Long term (current) use of anticoagulants; Z68.41 Body mass index [BMI] 40.0-44.9, adult; F41.9 Anxiety disorder, unspecified; N99.820 Postprocedural hemorrhage of a genitourinary system organ or structure following a genitourinary system procedure; Z99.81 Dependence on supplemental oxygen; E78.5 Hyperlipidemia, unspecified; I11.0 Hypertensive heart disease with heart failure; Z79.899 Other long term (current) drug therapy; R16.0 Hepatomegaly, not elsewhere classified; N17.9 Acute kidney failure, unspecified; F32.A Depression, unspecified; Z87.891 Personal history of nicotine dependence; N13.30 Unspecified hydronephrosis